=== PATIENT | male | born 1940 | race Caucasian/White ===

== ENCOUNTER → 2016-04-11 | Outpatient (CLI) | payer BC ==
[~2016-04-11] MED LIST: ACET-1047 PO; ACET-1256 PO; ASPEC81 PO; ASPI-232 PO; CALCIUM + D600 M1 PO; CANA1TAB PO; CITA40TA12 PO; CLC100 PO; CLX20 PO; GABA1CAP4 PO; GLIP-197 PO; HYDR12.55 PO; INSDGIPEN SQ; METO1TAB31 PO; MULT-506 PO; NRN/300 PO; NRN600 PO; OMEG10007 PO; SIMV40TA2 PO; TIMO0.2534 OPL; TIMO0.5S2 OPB; TRAV0.00 OPB; ULT50 PO; XLTOPS OPL
== END | disposition home or self-care (01) ==
LOC: C.PATH 15:41
PROVIDERS: ATTEND Dentist Oral and Maxillofacial Surgery
DX: L85.9 Epidermal thickening, unspecified (principal)

== ENCOUNTER 2016-04-17 11:04 | Emergency (ER) | payer BC ==
[~2016-04-17] VITALS: Ht 166.4 cm; Wt 66.5 kg
[~2016-04-17 11:04] MED LIST changes: -ACET-1047 PO; -ASPI-232 PO; -CANA1TAB PO; -CITA40TA12 PO; -CLC100 PO; -GABA1CAP4 PO; -INSDGIPEN SQ; -TIMO0.5S2 OPB; -XLTOPS OPL
[2016-04-17 11:13] VITALS: TEMP 36.8; Ht 166.4 cm; Wt 66.5 kg
--- NOTE | 2016-04-17 11:26 | EMERGENCY ROOM VISIT NOTE ---
History Report prepared by Jignesh: Jett Nielsen Under the Supervision of: Dr. Adriel Laurent M.D. First contact with patient: 11:09 Stated Complaint: MUSCLE SPASM History of Present Illness The patient is a 75 year old male who presents to the Emergency Room via ambulance with complaints of intermittent muscle spasms of the right hand since this morning. The patient had two episodes of spasm in his fingers that caused his right hand to clench. He also felt some numbness to the hand concurrently with the spasm. He is currently asymptomatic. The patient was sitting in a chair reading a newspaper when the symptoms first occurred. He has never experienced spasms like this before. The patient has a history of heart disease , kidney disease, and diabetes. The patient takes Hydrochlorothiazide. 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 The patient is also taking Ultram for tooth pain. He recently had the tooth pulled, and his pain has improved. Source of History: patient Onset: this morning Position: hand (right) Quality: other (muscle spasm) Timing: intermittent Associated Symptoms: + numbness Review of Systems See HPI for pertinent positives & negatives. A total of 10 systems reviewed and were otherwise negative. Past Medical & Surgical Medical Problems: (1) Diabetes (2) Hypertrophic cardiomyopathy (3) Kidney disease Surgical Problems: (1) S/P CABG x 1 Family History Patient reports no known family medical history. Social History Smoking Status: Never Smoker Alcohol Use: none Marital Status: single Current/Historical Medications Scheduled , 1 TABLET PO QAM Aspirin (Aspir-81), 1 TAB PO HS Aspirin Enteric Coated (Ecotrin Or Generic *), 81 MG PO HS Citalopram (Celexa *), 40 MG PO QAM Citalopram Hydrobromide (Celexa), 40 MG PO DAILY Fish Oil ([place]ar-3), 2 CAPSULES PO QAM Fish Oil (Casar-3), 1 CAP PO QPM Gabapentin (Neurontin *), 600 MG PO QAM Gabapentin (Neurontin), 300 MG PO HS Gabapentin (Gabapentin), 1 TAB PO PM Glipizide (Glipizide Er), 1 TAB PO QAM Hydrochlorothiazide (Hydrochlorothiazide), 12.5 MG PO QAM Metoprolol Succinate (Toprol Xl), 25 MG PO QAM Multivitamin (Multivitamin), 1 TABLET PO QAM Simvastatin (Zocor), 40 MG PO HS Timolol Maleate (Ophth) (Timoptic-Xe 0.5% Oph), 1 DROPS OPL BID Timolol Maleate 0.5% Oph (Timoptic 0.5% Oph), 1 DROP OPL BID Travoprost (Travatan Z), 1 DROPS OPB HS Scheduled PRN Tramadol HCl (Tramadol HCl), 1 TAB PO Q4-6H PRN for Pain Allergies Coded Allergies: Atenolol (Verified Allergy, Unknown, UNKNOWN, 04/17/16) Erythromycin (Verified Allergy, Unknown, 04/17/16) PT DENIES ALLERGY TO THIS Fentanyl (Verified Allergy, Unknown, HICCUPS, 04/17/16) Ibuprofen (Verified Allergy, Unknown, STOMACH EROSION, 04/17/16) Naproxen (Unverified Allergy, Unknown, STOMACH EROSION, 04/17/16) Sulfa Drugs (Unverified Allergy, Unknown, SHORTNESS OF BREATH, 04/17/16) Midazolam (Verified Adverse Reaction, Mild, HICCUPS, 04/17/16) Physical Exam Vital Signs Date Time Temp Pulse Resp B/P Pulse Ox O2 Delivery O2 Flow Rate FiO2 04/17/16 13:49 68 18 113/65 98 Room Air 04/17/16 12:52 67 12 115/72 96 Room Air 04/17/16 11:13 36.8 69 24 123/71 96 Room Air 04/17/16 11:12 63 Physical Exam GENERAL: Patient is a healthy-appearing well-nourished HEAD: Normocephalic atraumatic EYES: Ocular movements intact pupils equal and react to light OROPHARYNX mucous membranes are moist no exudates present no erythema or edema present NECK: Supple no nuchal rigidity CHEST: Good equal expansion LUNGS: Clear and equal to auscultation CARDIAC: Normal S1 and S2 ABDOMEN: Soft nontender no guarding BACK: No CVA tenderness EXTREMITIES: No pain upon palpation normal muscle strength in all groups no clubbing cyanosis or edema NEURO: Patient is following commands is answering questions appropriately. Alert and oriented x3 Cranial Nerves 2-12 grossly intact Medical Decision & Procedures Laboratory Results 04/17/16 11:20 Red Blood Count 4.58, Mean Corpuscular Volume 86.2, Mean Corpuscular Hemoglobin 31.2, Mean Corpuscular Hemoglobin Concent 36.2, Mean Platelet Volume 10.8, Neutrophils (%) (Auto) 63.4, Lymphocytes (%) (Auto) 21.7, Monocytes (%) (Auto) 11.3, Eosinophils (%) (Auto) 3.1, Basophils (%) (Auto) 0.2, Neutrophils # (Auto ) 3.85, Lymphocytes # (Auto) 1.32, Monocytes # (Auto) 0.69, Eosinophils # (Auto ) 0.19, Basophils # (Auto) 0.01 04/17/16 11:20 Test 04/17/16 11:20 04/17/16 11:34 White Blood Count 6.08 K/uL (4.8-10.8) Red Blood Count 4.58 M/uL (4.7-6.1) Hemoglobin 14.3 g/dL (14.0-18.0) Hematocrit 39.5 % (42-52) Mean Corpuscular Volume 86.2 fL (80-100) Mean Corpuscular Hemoglobin 31.2 pg (25-34) Mean Corpuscular Hemoglobin Concent 36.2 g/dl (32-36) Platelet Count 111 K/uL (130-400) Mean Platelet Volume 10.8 fL (7.4-10.4) Neutrophils (%) (Auto) 63.4 % Lymphocytes (%) (Auto) 21.7 % Monocytes (%) (Auto) 11.3 % Eosinophils (%) (Auto) 3.1 % Basophils (%) (Auto) 0.2 % Neutrophils # (Auto) 3.85 K/uL (1.4-6.5) Lymphocytes # (Auto) 1.32 K/uL (1.2-3.4) Monocytes # (Auto) 0.69 K/uL (0.11-0.59) Eosinophils # (Auto) 0.19 K/uL (0-0.5) Basophils # (Auto) 0.01 K/uL (0-0.2) RDW Standard Deviation 40.2 fL (36.4-46.3) RDW Coefficient of Variation 12.7 % (11.5-14.5) Immature Granulocyte % (Auto) 0.3 % Immature Granulocyte # (Auto) 0.02 K/uL (0.00-0.02) Anion Gap 7.0 mmol/L (3-11) Est Creatinine Clear Calc Drug Dose 36.6 ml/min Estimated GFR () 51.3 Estimated GFR (Non- 44.3 BUN/Creatinine Ratio 18.3 (10-20) Calcium Level 9.4 mg/dl (8.5-10.1) Phosphorus Level 3.6 mg/dl (2.5-4.9) Magnesium Level 2.3 mg/dl (1.8-2.4) Total Bilirubin 1.1 mg/dl (0.2-1) Direct Bilirubin 0.3 mg/dl (0-0.2) Aspartate Amino Transf (AST/SGOT) 20 U/L (15-37) Alanine Aminotransferase (ALT/SGPT) 33 U/L (12-78) Alkaline Phosphatase 106 U/L (45-117) Total Protein 7.3 gm/dl (6.4-8.2) Albumin 3.6 gm/dl (3.4-5.0) Lipase 137 U/L (73-393) Bedside Glucose 154 mg/dl (70-99) Labs reviewed by ED physician. Medications Administered Medications (Trade) Dose Ordered Sig/Gay Route Start Time Stop Time Status Last Admin Dose Admin Sodium Chloride (Nss 1000ml) 1,000 ml @ 999 mls/hr Q1H1M STAT IV 04/17/16 11:34 04/17/16 12:34 DC 04/17/16 11:34 999 MLS/HR ED Course 1110: Past medical records reviewed. The patient was evaluated in room C2. A complete history and physical examination was performed. 1134: NSS 1000 ml @ 999 mls/hr. 1245: Reassessed the patient. Discussed the treatment plan with him. He verbalized understanding and agreement of the treatment plan. The patient is ready for discharge. Medical Decision Etiologies such as metabolic, infection, hypo/hyperglycemia, electrolyte abnormalities, cardiac sources, intracerebral event, toxicologic, neurologic, as well as others were entertained. This is a 75-year-old male who presents emergency department complaining of muscle spasms in his right arm. I will note that the patient was reason I placed on Augmentin as well as Ultram for a mouth infection. Because the nature the patient's complaint an IV was established, the patient's electrolytes were checked. An IV was established, patient given normal saline bolus. The patient is slightly dehydrated on his laboratory work. I believe this in connection with possibly the Ultram may have caused him to have muscle spasms. I advised the patient stopped taking the Ultram. Patient was in agreement with the treatment plan. Impression Primary Impression: Dehydration Scribe Attestation The scribe's documentation has been prepared under my direction and personally reviewed by me in its entirety. I confirm that the note above accurately reflects all work, treatment, procedures, and medical decision making performed by me. Departure Information Dispostion Home / Self-Care Referrals Jefferson Suarez D.O. (PCP) Forms HOME CARE DOCUMENTATION FORM, IMPORTANT VISIT INFORMATION, School Instructions, Work Instructions Patient Instructions Dehydration, My [facility] Additional Instructions STOP taking Ultram You have been examined and treated today on an emergency basis only. This is not a substitute for, or an effort to provide, complete comprehensive medical care. It is impossible to recognize and treat all injuries or illnesses in a single emergency department visit. It is therefore important that you follow up closely with Dr Suarez. Call as soon as possible for an appointment. Thank you for your time and consideration. I look forward to speaking with you again soon. Please don't hesitate to call us if you have any questions.
[2016-04-17] MEDS ORDERED: SODIUM CHLORIDE 0.9% 1000ML 1,000 ML IV STA (11:34)
[2016-04-17 11:36] LABS: BASO % 0.2 %; BASO ABS # 0.01 K/uL (0-0.2); COMPLETE YES; EOS % 3.1 %; HEMATOCRIT 39.5 % (42-52); IG% 0.3 %; LYMPH % 21.7 %; LYMPH ABS # 1.32 K/uL (1.2-3.4); MEAN CELL VOLUME 86.2 fL (80-100); MEAN CORPUSCULAR HEMOGLOBIN 31.2 pg (25-34); MEAN CORPUSCULAR HGB CONC 36.2 g/dl (32-36); MEAN PLATELET VOLUME 10.8 fL (7.4-10.4); MONO % 11.3 %; NEUT % 63.4 %; PLATELET COUNT 111 K/uL (130-400); RED BLOOD COUNT 4.58 M/uL (4.7-6.1); WHITE BLOOD COUNT 6.08 K/uL (4.8-10.8)
[2016-04-17 12:01] LABS: BUN/CREATININE RATIO 18.3 (10-20); CALCIUM 9.4 mg/dl (8.5-10.1); CREATININE 1.5 mg/dl (0.60-1.40); MAGNESIUM 2.3 mg/dl (1.8-2.4); POTASSIUM 4.2 mmol/L (3.5-5.1)
[2016-04-17 12:05] LABS: PHOSPHORUS 3.6 mg/dl (2.5-4.9)
[2016-04-17] MEDS ORDERED: NRN600 PO (12:30)
[2016-04-17] MEDS ORDERED: CITA40TA12 PO (12:30)
[2016-04-17] MEDS ORDERED: TIMO0.5S2 OPB (12:30)
[2016-04-17] MEDS ORDERED: ASPI-232 PO (12:30)
[2016-04-17 13:49] VITALS: BP 113/65; PULSE 68; O2SAT 98
[2016-12-05] MEDS ORDERED: ACET-1047 PO (10:24)
[2016-12-05] MEDS ORDERED: INSDGIPEN SQ (10:24)
[2016-12-05] MEDS ORDERED: CLC100 PO (10:24)
== END 2016-04-17 13:55 | disposition home or self-care (01) ==
LOC: EDBD 11:04 → C.EDC 11:05
DX: E86.0 Dehydration (principal); E11.9 Type 2 diabetes mellitus without complications; N28.9 Disorder of kidney and ureter, unspecified; Z95.1 Presence of aortocoronary bypass graft

== ENCOUNTER → 2016-06-18 | Outpatient (CLI) | payer BC ==
[~2016-06-18] MED LIST changes: +ACET-1047 PO; -ACET-1256 PO; +ASPI-232 PO; +CANA1TAB PO; +CITA40TA12 PO; +CLC100 PO; +GABA1CAP4 PO; +INSDGIPEN SQ; +TIMO0.5S2 OPB; +XLTOPS OPL
--- NOTE | 2016-06-18 14:47 | DIAGNOSTIC IMAGING REPORT ---
EXAMINATION: RENAL ULTRASOUND CLINICAL HISTORY: Chronic renal disease COMPARISON STUDY: 06/28/2015 FINDINGS: The right kidney measures 5.6 cm. The left kidney measures 9.1 cm. There is no evidence of hydronephrosis. There is a 17 mm lower pole right renal cyst. There is a 4 mm nonshadowing echogenic focus within the lower pole the left kidney. While a nonshadowing calculus cannot be excluded, this likely represents a vascular reflector. No bladder abnormalities are visualized. Bilateral ureteral jets were visualized. The prostate is enlarged. IMPRESSION : 1. No evidence of hydronephrosis 2. 17 mm right renal cyst 3. Prostatic enlargement Electronically signed by: Pardeep Jhaveri M.D. 06/18/2016 2:46 PM Dictated Date/Time: 06/18/2016 2:45 PM
== END | disposition home or self-care (01) ==
LOC: C.ULTR 14:05
PROVIDERS: ATTEND Internal Medicine Nephrology
DX: N18.9 Chronic kidney disease, unspecified (principal); N28.1 Cyst of kidney, acquired; N40.0 Benign prostatic hyperplasia without lower urinary tract symptoms

== ENCOUNTER → 2016-07-24 | Outpatient (CLI) | payer BC ==
[~2016-07-24] MED LIST changes: +METO-478 PO; -METO1TAB31 PO
--- NOTE | 2016-07-24 14:04 | DIAGNOSTIC IMAGING REPORT ---
CERVICAL SPINE 9 VIEWS HISTORY: Trauma NECK PAIN COMPARISON: None. FINDINGS: The cervical spine is visualized from C1 through the superior endplate of T1. There is no fracture. No evidence for subluxation on a positional basis. Flexion-extension views demonstrate alignment to be anatomic. Moderate degenerative disc change from C5 through C7. Mild anterior osteophytic changes throughout. Moderate osteophytic narrowing of the bulk of the neuroforamina bilaterally. IMPRESSION: Degenerative change of the mid to lower cervical region. No evidence for subluxation on a positional basis. Moderate osteophytic narrowing of the bulk of the neuroforamina bilaterally. Electronically signed by: Luiz Funes M.D. 07/24/2016 2:03 PM Dictated Date/Time: 07/24/2016 2:02 PM
== END | disposition home or self-care (01) ==
LOC: C.RDSM 12:17
PROVIDERS: ATTEND Neurological Surgery
DX: M54.2 Cervicalgia (principal)

== ENCOUNTER 2016-09-11 03:09 | Emergency (ER) | payer BC ==
[~2016-09-11] VITALS: Ht 166.4 cm; Wt 72.6 kg
[~2016-09-11 03:09] MED LIST changes: -ACET-1047 PO; -CANA1TAB PO; -CLC100 PO; -GABA1CAP4 PO; -INSDGIPEN SQ; -XLTOPS OPL
[2016-09-11 03:22] VITALS: TEMP 36.6; Ht 166.4 cm; Wt 72.6 kg
[2016-09-11 03:38] LABS: BASO % 0.1 %; BASO ABS # 0.01 K/uL (0-0.2); COMPLETE YES; EOS % 2.8 %; HEMATOCRIT 40.7 % (42-52); IG% 0.1 %; LYMPH % 29.5 %; MEAN CELL VOLUME 85.5 fL (80-100); MEAN CORPUSCULAR HEMOGLOBIN 31.9 pg (25-34); MEAN CORPUSCULAR HGB CONC 37.3 g/dl (32-36); MEAN PLATELET VOLUME 10.7 fL (7.4-10.4); NEUT % 58.5 %; PLATELET COUNT 148 K/uL (130-400); RED BLOOD COUNT 4.76 M/uL (4.7-6.1); WHITE BLOOD COUNT 7.13 K/uL (4.8-10.8)
[2016-09-11] MEDS ORDERED: MoRPHine SULFATE 4 MG/ML 1 ML CARP\\VIAL IV STA (03:46)
[2016-09-11 03:59] LABS: BUN/CREATININE RATIO 16.2 (10-20); CALCIUM 9.1 mg/dl (8.5-10.1); CREATININE 1.5 mg/dl (0.60-1.40); POTASSIUM 3.8 mmol/L (3.5-5.1)
[2016-09-11 04:01] LABS: ALB/GLOB RATIO 1.1 (0.9-2)
[2016-09-11] MEDS ORDERED: GABA1CAP4 PO (04:33)
[2016-09-11] MEDS ORDERED: XLTOPS OPL (04:33)
--- NOTE | 2016-09-11 06:19 | EMERGENCY ROOM VISIT NOTE ---
History First contact with patient: 03:16 Chief Complaint: CARDIAC ASSESSMENT Stated Complaint: CARDIAC ASSESSMENT Nursing Triage Summary: Pt arrives ALS for evaluation of sudden onset of abd/epigastic pain,sob; followed hour later with mid- sternal chest pain and belching. Pt reports he had a half sandwich from [employer] for dinner. Ate 12 cookies before bed. PMH: DM, cardiomyapathy, CKD, PACER/DEFIB, CHF History of Present Illness The patient is a 75 year old male who presents to the Emergency Room via ALS with complaints of abdominal and chest pain which began just prior to arrival. The patient reports that he was about to go to bed approximately 2 hours ago when he developed severe upper abdominal pain. The pain began to radiate into his chest and he notes that he was "breathing hard." He reports associated belching. He states the pain in his chest has improved but the pain remains in the upper abdomen. He denies any vomiting, fevers, changes in bowel movements or urinary symptoms. He has a significant history of coronary artery disease and pacemaker. He has had multiple surgeries performed at [facility]. He additionally reports a history of diabetes and chronic kidney disease. Review of Systems A complete 10 point review of systems was reviewed with the patient with pertinent positives and negatives as per history of present illness. All else were negative. Past Medical/Surgical History Medical Problems: (1) Diabetes (2) Hypertrophic cardiomyopathy (3) Kidney disease Surgical Problems: (1) S/P CABG x 1 Family History Patient reports no known family medical history. Social History Smoking Status: Never Smoker Alcohol Use: none Marital Status: single Current/Historical Medications Scheduled , 1 TABLET PO QAM Aspirin (Aspir-81), 1 TAB PO HS Citalopram Hydrobromide (Celexa), 40 MG PO DAILY Fish Oil ([place]-3), 2 CAPSULES PO QAM Gabapentin (Gabapentin), 300 MG PO TID Glipizide (Glipizide Er), 1 TAB PO QAM Hydrochlorothiazide (Hydrochlorothiazide), 12.5 MG PO QAM Latanoprost (Latanoprost), 1 DROP OPL HS Metoprolol Succinate (Toprol Xl), 25 MG PO QAM Multivitamin (Multivitamin), 1 TABLET PO QAM Simvastatin (Zocor), 40 MG PO HS Timolol Maleate (Ophth) (Timoptic-Xe 0.5% Oph), 1 DROPS OPB DAILY Scheduled PRN Tramadol HCl (Tramadol HCl), 1 TAB PO Q4-6H PRN for Pain Allergies Coded Allergies: Atenolol (Verified Allergy, Unknown, UNKNOWN, 09/11/16) Erythromycin (Verified Allergy, Unknown, 09/11/16) PT DENIES ALLERGY TO THIS Fentanyl (Verified Allergy, Unknown, HICCUPS, 09/11/16) Ibuprofen (Verified Allergy, Unknown, STOMACH EROSION, 09/11/16) Naproxen (Unverified Allergy, Unknown, STOMACH EROSION, 09/11/16) Sulfa Drugs (Unverified Allergy, Unknown, SHORTNESS OF BREATH, 09/11/16) Midazolam (Verified Adverse Reaction, Mild, HICCUPS, 09/11/16) Physical Exam Vital Signs Date Time Temp Pulse Resp B/P (MAP) Pulse Ox O2 Delivery O2 Flow Rate FiO2 09/11/16 07:09 67 16 110/61 98 Room Air 09/11/16 05:34 92 18 190/104 96 Room Air 09/11/16 05:17 60 16 137/72 99 Room Air 09/11/16 04:28 63 18 137/76 99 Room Air 09/11/16 03:22 36.6 69 20 160/89 99 Room Air 09/11/16 03:19 Room Air 09/11/16 03:18 68 Physical Exam VITALS: Vitals are noted on the nurse's note and reviewed by myself. Vital signs stable. GENERAL: This is a 75-year-old female, in no acute distress, nondiaphoretic, well-developed well-nourished. SKIN: Capillary reflex less than 2 seconds. HEENT: Normocephalic. PERRLA. Nares patent. Mucous membranes moist. HEART: Regular rate and rhythm without murmurs gallops or rubs. LUNGS: Clear to auscultation bilaterally without wheezes, rales or rhonchi. ABDOMEN: Positive bowel sounds x 4. There is significant tenderness to palpation of the right upper quadrant and epigastric region. There is no other tenderness to palpation. No guarding or rebound tenderness. NEURO: Patient was alert and oriented to person place and time. Medical Decision & Procedures ER Provider Diagnostic Interpretation: US RUQ: The liver is normal in size and echogenicity. The pancreas was not well visualized. The common bile duct is within normal limits measured 2.2 mm. Stones and sludge within the gallbladder. Gallbladder wall measures within normal limits at 2.7 mm. Trace pericholecystic fluid. If there is clinical concern for acute cholecystitis, consider nuclear medicine HIDA scan. Small cyst within the right kidney. Otherwise the right kidney is unremarkable. Radiologist: Jose Correa MD Laboratory Results 09/11/16 03:25 Red Blood Count 4.76, Mean Corpuscular Volume 85.5, Mean Corpuscular Hemoglobin 31.9, Mean Corpuscular Hemoglobin Concent 37.3, Mean Platelet Volume 10.7, Neutrophils (%) (Auto) 58.5, Lymphocytes (%) (Auto) 29.5, Monocytes (%) (Auto) 9.0, Eosinophils (%) (Auto) 2.8, Basophils (%) (Auto) 0.1, Neutrophils # (Auto) 4.17, Lymphocytes # (Auto) 2.10, Monocytes # (Auto) 0.64, Eosinophils # (Auto) 0.20, Basophils # (Auto) 0.01 09/11/16 03:25 Test 09/11/16 03:25 09/11/16 03:38 09/11/16 06:20 White Blood Count 7.13 K/uL (4.8-10.8) Red Blood Count 4.76 M/uL (4.7-6.1) Hemoglobin 15.2 g/dL (14.0-18.0) Hematocrit 40.7 % (42-52) Mean Corpuscular Volume 85.5 fL (80-100) Mean Corpuscular Hemoglobin 31.9 pg (25-34) Mean Corpuscular Hemoglobin Concent 37.3 g/dl (32-36) Platelet Count 148 K/uL (130-400) Mean Platelet Volume 10.7 fL (7.4-10.4) Neutrophils (%) (Auto) 58.5 % Lymphocytes (%) (Auto) 29.5 % Monocytes (%) (Auto) 9.0 % Eosinophils (%) (Auto) 2.8 % Basophils (%) (Auto) 0.1 % Neutrophils # (Auto) 4.17 K/uL (1.4-6.5) Lymphocytes # (Auto) 2.10 K/uL (1.2-3.4) Monocytes # (Auto) 0.64 K/uL (0.11-0.59) Eosinophils # (Auto) 0.20 K/uL (0-0.5) Basophils # (Auto) 0.01 K/uL (0-0.2) RDW Standard Deviation 40.1 fL (36.4-46.3) RDW Coefficient of Variation 12.8 % (11.5-14.5) Immature Granulocyte % (Auto) 0.1 % Immature Granulocyte # (Auto) 0.01 K/uL (0.00-0.02) Anion Gap 5.0 mmol/L (3-11) Est Creatinine Clear Calc Drug Dose 36.6 ml/min Estimated GFR () 51.3 Estimated GFR (Non- 44.3 BUN/Creatinine Ratio 16.2 (10-20) Calcium Level 9.1 mg/dl (8.5-10.1) Total Bilirubin 0.8 mg/dl (0.2-1) Aspartate Amino Transf (AST/SGOT) 16 U/L (15-37) Alanine Aminotransferase (ALT/SGPT) 30 U/L (12-78) Alkaline Phosphatase 127 U/L (45-117) Total Protein 7.1 gm/dl (6.4-8.2) Albumin 3.7 gm/dl (3.4-5.0) Globulin 3.4 gm/dl (2.5-4.0) Albumin/Globulin Ratio 1.1 (0.9-2) Lipase 252 U/L (73-393) Bedside Troponin I 0.040 ng/ml (0-0.045) Urine Color DK YELLOW Urine Appearance CLOUDY (CLEAR) Urine pH 7.5 (4.5-7.5) Urine Specific [place] 1.026 (1.000-1.030) Urine Protein NEG (NEG) Urine Glucose (UA) TRACE (NEG) Urine Ketones TRACE (NEG) Urine Occult Blood NEG (NEG) Urine Nitrite NEG (NEG) Urine Bilirubin NEG (NEG) Urine Urobilinogen POS (NEG) Urine Leukocyte Esterase NEG (NEG) Urine WBC (Auto) 1-5 /hpf (0-5) Urine RBC (Auto) 0-4 /hpf (0-4) Urine Hyaline Casts (Auto) 0 /lpf (0-5) Urine Epithelial Cells (Auto) 5-10 /lpf (0-5) Urine Bacteria (Auto) NEG (NEG) Medications Administered Medications (Trade) Dose Ordered Sig/Gay Route Start Time Stop Time Status Last Admin Dose Admin Morphine Sulfate (MoRPHine SULFATE INJ) 4 mg NOW STAT IV 09/11/16 03:46 09/11/16 03:47 DC 09/11/16 04:40 4 MG ECG Rate (beats per minute): 67 Rhythm: other (AV paced rhythm) Findings: no acute ischemic change Change: no significant change ED Course The patient was evaluated as above. Labs were drawn and IV access was obtained. Patient was medicated with 4 mg morphine IV. Right upper quadrant ultrasound shows findings suggestive of acute cholecystitis. The findings were discussed with the patient. He states that if he needs surgery, he would like to be transferred to [place]. I spoke with Dr. Mayer regarding the patient. He feels that given the presentation, this is likely acute cholecystitis and does not feel that a HIDA scan will be beneficial. I spoke with Dr. Michael at [facility]. He will accept the patient as a direct admission. Medical Decision Differential diagnosis includes acute coronary syndrome, cholecystitis, pancreatitis, gastroenteritis, bowel obstruction, kidney stone, pulmonary embolism, aortic dissection, among others. The patient is a 75-year-old male who presents today complaining of abdominal/ chest pain. Exam reveals significant tenderness of the right upper quadrant. Labs revealed no leukocytosis. Troponin was not elevated. EKG shows a paced rhythm and is similar to a previous EKG. LFTs are not significantly elevated. Bilirubin was within normal limits. A chest x-ray was reviewed by myself and is unremarkable. Right upper quadrant ultrasound did show sludge, stones, and pericholecystic fluid. Our general surgeon, Dr. Mayer felt that this does represent acute cholecystitis. The patient would like to be transferred to [facility] and requested to go by private vehicle. I do think this is reasonable, as the patient is stable and pain-free at this time. [facility] surgery will accept the patient as a direct admission. The patient was independently evaluated by Dr. Garcia, ED attending physician, who agreed with my assessment and treatment plan. Medication reconciliation: I attest that I have personally reviewed the patient 's current medication list. Blood pressure screening: Patient was found to have normal blood pressure on screening and does not require follow-up. Impression Primary Impression: Acute cholecystitis Departure Information Referrals Jefferson Suarez D.O. (PCP) Patient Instructions [facility]
--- NOTE | 2016-09-11 06:40 | DIAGNOSTIC IMAGING REPORT ---
CHEST ONE VIEW PORTABLE CLINICAL HISTORY: epigastric/RUQ pain pain. Nausea. COMPARISON STUDY: 02/14/2015 FINDINGS: Lungs are clear. Prior median sternotomy. Bipolar cardiac pacemaker. Diaphragms smooth. IMPRESSION: No acute process. Electronically signed by: Luiz Funes M.D. 09/11/2016 6:39 AM Dictated Date/Time: 09/11/2016 6:38 AM
[2016-09-11 07:09] VITALS: BP 110/61; PULSE 67; O2SAT 98
--- NOTE | 2016-09-11 07:22 | DIAGNOSTIC IMAGING REPORT ---
ULTRASOUND RIGHT UPPER QUADRANT ABDOMEN CLINICAL HISTORY: Epigastric abdominal pain. COMPARISON STUDY: Abdominal CT dated 06/07/2009. TECHNIQUE: Real-time, grayscale, and color flow sonography of the right upper quadrant of the abdomen was performed. Images are reviewed in the transverse and longitudinal planes. FINDINGS: Liver: The liver is normal in size and echotexture. There is no intrahepatic biliary ductal dilatation. The main portal vein is patent. Gallbladder: The gallbladder is mildly distended. Biliary sludge is noted and small gallstones are suspected in the region of the gallbladder neck. The gallbladder wall is borderline thickened measuring up to 3 mm. No pericholecystic fluid is seen. A sonographic Rosario's sign is equivocal secondary to analgesia. The common bile duct measures up to 0.3 cm in diameter. Pancreas: Not well visualized due to overlying bowel gas. Right kidney: Survey images of the right kidney demonstrate cortical atrophy. There is no hydronephrosis. A 1.7 cm cyst is noted in the lower pole. Ascites: None. IMPRESSION: 1. Cholelithiasis and biliary sludge with findings concerning for acute cholecystitis. Clinical correlation will be required. Consider nuclear hepatobiliary scan for confirmation. 2. There is no intra or extrahepatic biliary ductal dilatation. 3. The pancreas was not well visualized. Electronically signed by: Praful De La Rosa M.D. 09/11/2016 7:20 AM Dictated Date/Time: 09/11/2016 7:17 AM
[2016-09-11 07:33] LABS: URINE APPEARANCE CLOUDY (CLEAR); URINE BILIRUBIN NEG (NEG); URINE COLOR DK YELLOW; URINE NITRITE NEG (NEG); URINE PH 7.5 (4.5-7.5); URINE SPECIFIC GRAVITY 1.026 (1.000-1.030); UROBILINOGEN POS (NEG); ZZUR CULT IF INDIC CLEAN CATCH NO
[2016-09-11 07:40] LABS: MANUAL MICROSCOPIC REQUIRED? NO; REVIEW REQ? NO
[2016-12-05] MEDS ORDERED: INSDGIPEN SQ (10:24)
[2016-12-05] MEDS ORDERED: CLC100 PO (10:24)
[2016-12-05] MEDS ORDERED: ACET-1047 PO (10:24)
== END 2016-09-11 07:46 | disposition short-term general hospital (02) ==
LOC: EDBD 03:09 → C.EDB 03:10
DX: K81.0 Acute cholecystitis (principal); I25.10 Atherosclerotic heart disease of native coronary artery without angina pectoris; E11.22 Type 2 diabetes mellitus with diabetic chronic kidney disease; N18.9 Chronic kidney disease, unspecified; I42.2 Other hypertrophic cardiomyopathy; Z95.0 Presence of cardiac pacemaker; Z95.1 Presence of aortocoronary bypass graft; Z79.82 Long term (current) use of aspirin

== ENCOUNTER → 2016-11-21 | Outpatient (CLI) | payer BC ==
[~2016-11-21] MED LIST changes: +ACET-1047 PO; -ASPEC81 PO; +CANA1TAB PO; +CLC100 PO; -CLX20 PO; +GABA1CAP4 PO; +INSDGIPEN SQ; -METO-478 PO; +METO1TAB31 PO; -NRN/300 PO; -NRN600 PO; -TIMO0.2534 OPL; -TRAV0.00 OPB; +XLTOPS OPL
--- NOTE | 2016-11-21 10:30 | DIAGNOSTIC IMAGING REPORT ---
LEFT FOOT MIN 3 VIEWS CLINICAL HISTORY: Left foot pain COMPARISON: None. DISCUSSION: No acute fractures are visualized. There are degenerative changes at the level the first tarsal metatarsal joint and first metatarsal phalangeal joint. Mild irregularity of the first metatarsal head, is likely either degenerative or related to old trauma. There is a plantar calcaneal spur. IMPRESSION: 1. No acute fractures 2. Degenerative changes at the level of the first tarsal metatarsal joint and first metatarsal phalangeal joint Electronically signed by: Pardeep Jhaveri M.D. 11/21/2016 10:29 AM Dictated Date/Time: 11/21/2016 10:27 AM
== END | disposition home or self-care (01) ==
LOC: C.RDSM 11:30
PROVIDERS: ATTEND Podiatrist
DX: M79.672 Pain in left foot (principal)

== ENCOUNTER 2016-12-01 04:21 | Inpatient (IN) | payer BC ==
[~2016-12-01] VITALS: Ht 167.6 cm; Wt 71.1 kg
[~2016-12-01 04:21] MED LIST changes: -ACET-1047 PO; -CANA1TAB PO; -CLC100 PO; -INSDGIPEN SQ
[2016-12-01] MEDS ORDERED: ONDANSETRON INJ 2 MG/ML 2 ML VIAL IV STA (04:41)
[2016-12-01] MEDS ORDERED: MoRPHine SULFATE 4 MG/ML 1 ML CARP\\VIAL IV STA ×2 (04:41→05:42)
[2016-12-01 05:04] LABS: BASO % 0.3 %; BASO ABS # 0.03 K/uL (0-0.2); COMPLETE YES; EOS % 3.2 %; HEMATOCRIT 42.6 % (42-52); IG% 0.2 %; LYMPH % 37.6 %; LYMPH ABS # 3.27 K/uL (1.2-3.4); MEAN CELL VOLUME 86.4 fL (80-100); MEAN CORPUSCULAR HGB CONC 35.9 g/dl (32-36); MONO % 11.3 %; NEUT % 47.4 %; PLATELET COUNT 130 K/uL (130-400); RED BLOOD COUNT 4.93 M/uL (4.7-6.1); WHITE BLOOD COUNT 8.69 K/uL (4.8-10.8)
[2016-12-01] MEDS ORDERED: CANA1TAB PO (05:15)
[2016-12-01] MEDS ORDERED: INSDGIPEN SQ (05:15)
[2016-12-01 05:24] LABS: BUN/CREATININE RATIO 20.1 (10-20); CALCIUM 9.2 mg/dl (8.5-10.1); CREATININE 1.8 mg/dl (0.60-1.40); POTASSIUM 3.7 mmol/L (3.5-5.1)
[2016-12-01 05:27] LABS: ALB/GLOB RATIO 0.9 (0.9-2)
--- NOTE | 2016-12-01 06:32 | DIAGNOSTIC IMAGING REPORT ---
GALLBLADDER-ABD LIMITED CLINICAL HISTORY: abd pain, hx stones TECHNIQUE: Ultrasound COMPARISON STUDY: 09/11/2016 FINDINGS: Moderate amount of gallbladder debris. No significant pericholecystic fluid. Gallbladder wall top limits of normal 3 mm. No evidence for distention of the common bile duct. Liver is uniform throughout. Pancreas is not seen due to overlying bowel gas. Right kidney is negative for hydronephrosis. 2.5 cm lower pole cyst. IMPRESSION: Moderate gallbladder debris. Normal caliber bile ducts. Small right renal cyst. No change from the prior exam. The above report was generated using voice recognition software. It may contain grammatical, syntax or spelling errors. Electronically signed by: Luiz Funes M.D. 12/01/2016 6:31 AM Dictated Date/Time: 12/01/2016 6:29 AM
[2016-12-01] MEDS ORDERED: HYDROmorphone INJ 0.5 MG/0.5 ML SYR IV STA (06:34)
[2016-12-01] MEDS ORDERED: ASPIRIN/ALUM/MAGNES/CAL CARB 325 MG TAB PO STA (06:52)
--- NOTE | 2016-12-01 06:55 | EMERGENCY ROOM VISIT NOTE ---
History Report prepared by Jignesh: Markie Koenig Under the Supervision of: Dr. Yaritza Raza D.O. First contact with patient: 05:19 Chief Complaint: ABDOMINAL PAIN Stated Complaint: ABD PAIN Nursing Triage Summary: Patient reports abdominal pain. Patient reports he is to have his gal bladder removed this at [facility]. History of Present Illness The patient is a 75 year old male who presents to the Emergency Room with complaints of constant central abdominal pain beginning a few hours ago. He is scheduled for a cholecystectomy in [place] in four days. He states that his pain began as he was trying to fall asleep. The patient states that his pain worsened since it began. He also complains of nausea, chills and subjective fevers. He denies any modifying factors. The patient notes that he has a history of similar symptoms. States pain and location tonight is the exact same as it was when he was found to have gallbladder problems a couple months ago. Denies chest pain, trouble breathing, no fevers. He denies any diarrhea or urinary symptoms. He notes that he recently began taking Invokana. States his daily blood sugar readings have been better controlled, but his las Hgb A1C was elevated. The patient notes that he ate a late dinner at a new restaurant last night. States felt fine while eating. Source of History: patient Onset: A few hours ago Position: abdomen (epigastric) Timing: constant Modifying Factors (Worsening): other (none) Modifying Factors (Relieving): other (none) Associated Symptoms: + fevers (subjective), + chills, + nausea, No diarrhea , No urinary symptoms Review of Systems See HPI for pertinent positives & negatives. A total of 10 systems reviewed and were otherwise negative. Past Medical & Surgical Medical Problems: (1) Diabetes (2) Hypertrophic cardiomyopathy (3) Kidney disease Surgical Problems: (1) S/P CABG x 1 Family History Patient reports no known family medical history. Social History Smoking Status: Never Smoker Alcohol Use: none Marital Status: single Current/Historical Medications Scheduled , 1 TABLET PO QAM Aspirin (Aspir-81), 1 TAB PO HS Canagliflozin (Invokana), 100 MG PO QAM Citalopram Hydrobromide (Celexa), 40 MG PO DAILY Fish Oil ([place]-3), 2 CAPSULES PO QAM Gabapentin (Gabapentin), 300 MG PO TID Glipizide (Glipizide Er), 1 TAB PO QAM Hydrochlorothiazide (Hydrochlorothiazide), 12.5 MG PO QAM Insulin Glargine (Lantus Solostar), 25 UNITS SQ HS Latanoprost (Latanoprost), 1 DROP OPL HS Metoprolol Succinate (Toprol Xl), 25 MG PO QAM Multivitamin (Multivitamin), 1 TABLET PO QAM Simvastatin (Zocor), 40 MG PO HS Timolol Maleate (Ophth) (Timoptic-Xe 0.5% Oph), 1 DROPS OPB DAILY Scheduled PRN Tramadol HCl (Tramadol HCl), 1 TAB PO Q4-6H PRN for Pain Allergies Coded Allergies: Atenolol (Verified Allergy, Unknown, UNKNOWN, 12/01/16) Erythromycin (Verified Allergy, Unknown, 12/01/16) PT DENIES ALLERGY TO THIS Fentanyl (Verified Allergy, Unknown, HICCUPS, 12/01/16) Ibuprofen (Verified Allergy, Unknown, STOMACH EROSION, 12/01/16) Naproxen (Unverified Allergy, Unknown, STOMACH EROSION, 12/01/16) Sulfa Drugs (Unverified Allergy, Unknown, SHORTNESS OF BREATH, 12/01/16) Midazolam (Verified Adverse Reaction, Mild, HICCUPS, 12/01/16) Physical Exam Vital Signs Date Time Temp Pulse Resp B/P (MAP) Pulse Ox O2 Delivery O2 Flow Rate FiO2 12/01/16 07:50 80 20 117/67 Room Air 12/01/16 06:38 60 18 128/64 96 Room Air 12/01/16 05:43 36.4 61 12/01/16 05:06 61 12/01/16 04:31 83 18 150/91 100 Room Air Physical Exam GENERAL: alert, well appearing, well nourished, no distress, non-toxic EYE EXAM: normal conjunctiva, PERRL and EOM's grossly intact OROPHARYNX: no exudate, no erythema, lips, buccal mucosa, and tongue normal and mucous membranes are moist NECK: supple, no nuchal rigidity, no adenopathy, non-tender LUNGS: Clear to auscultation. Normal chest wall mechanics HEART: no murmurs, S1 normal and S2 normal ABDOMEN: abdomen soft, normo-active bowel sounds, no masses, no rebound or guarding. Tender across the mid-abdomen and periumbilical region. BACK: Back is symmetrical on inspection and there is no deformity, no midline tenderness, no CVA tenderness. SKIN: no rashes and no bruising UPPER EXTREMITIES: upper extremities are grossly normal. LOWER EXTREMITIES: No pitting edema. NEURO EXAM: Normal sensorium, cranial nerves II-XII grossly intact, normal speech, no gross weakness of arms, no gross weakness of legs. Medical Decision & Procedures ER Provider Diagnostic Interpretation: US: Per my review, radiologist interpretation. GALLBLADDER-ABD LIMITED FINDINGS: Moderate amount of gallbladder debris. No significant pericholecystic fluid. Gallbladder wall top limits of normal 3 mm. No evidence for distention of the common bile duct. Liver is uniform throughout. Pancreas is not seen due to overlying bowel gas. Right kidney is negative for hydronephrosis. 2.5 cm lower pole cyst. IMPRESSION: Moderate gallbladder debris. Normal caliber bile ducts. Small right renal cyst. No change from the prior exam. The above report was generated using voice recognition software. It may contain grammatical, syntax or spelling errors. Electronically signed by: Luiz Funes M.D. Laboratory Results Test 12/01/16 04:45 12/01/16 05:50 Lipase 393 U/L (73-393) Lactic Acid Level 1.2 mmol/L (0.4-2.0) Laboratory results per my review. Medications Administered Medications (Trade) Dose Ordered Sig/Gay Route Start Time Stop Time Status Last Admin Dose Admin Morphine Sulfate (MoRPHine SULFATE INJ) 4 mg NOW STAT IV 12/01/16 04:41 12/01/16 04:47 DC 12/01/16 04:55 4 MG Ondansetron HCl (Zofran Inj) 4 mg NOW STAT IV 12/01/16 04:41 12/01/16 04:47 DC 12/01/16 04:55 4 MG Morphine Sulfate (MoRPHine SULFATE INJ) 4 mg NOW STAT IV 12/01/16 05:42 12/01/16 05:43 DC 12/01/16 06:04 4 MG Hydromorphone HCl (Dilaudid Inj) 0.5 mg NOW STAT IV 12/01/16 06:34 12/01/16 06:35 DC 12/01/16 06:46 0.5 MG Aspirin/Aluminum/ Magnesium/Ca Carb (Ascriptin Tab) 325 mg NOW STAT PO 12/01/16 06:52 12/01/16 06:54 DC 12/01/16 07:50 325 MG ECG Indication: abdominal pain Rate (beats per minute): 60 Rhythm: other (AV paced) Findings: no acute ischemic change, other (Normal axis. ) ED Course 0521: The patient was evaluated in room B5. A complete history and physical exam was performed. 0542: Ordered Morphine Sulfate 4 mg IV. 0634: Ordered Dilaudid Inj 0.5 mg IV. 0647: Upon reevaluation, the patient is resting. His abdominal pain is still present. I discussed the findings and the treatment plan with the patient. He expresses agreement and understanding. I spoke with the [facility]. The patient will be evaluated for further management. Medical Decision Differential diagnosis: Etiologies such as appendicitis, diverticulitis, PUD, biliary pathology, UTI, pancreatitis, obstruction, mesenteric ischemia, aortic pathology, infections, inflammatory bowel disease, renal colic, as well as others were entertained. Review of EMR: US from September 11, 2016 reviewed. Pt with hx of CAD and stents, sx possibly related to gallbladder etiology. No sx to otw suggest ACS. Troponin elevated, no acute ekg changes, paced rhythm. Possible elevated troponin related to CKD. However needs additional monitoring/ evaluation. Pain improved with meds. No surgical abdomen. Doubt perf, mesenteric ischemia, asc cholangitis, sepsis, aaa/dissection. VS stable. Offered pt transfer to [place] given docs down there and surgery scheduled, he requested to stay here until additional determinations could be made regarding his cardiac status and ability to have his procedure on . No significant leukocytosis or abnormal LFT"s at this time, more likely biliary colic and not acute cholecystitis. Medication Reconcilliation Current Medication List: was personally reviewed by me Blood Pressure Screening Patient's blood pressure: Elevated blood pressure Blood pressure disposition: Elevated BP felt to be situational Consults Time Called: 06 Consulting Physician: [facility] Returned Call: 07 I reviewed the patient's case with Dr. Cee. [facility] will [facility] the patient for further management. Impression Primary Impression: Abdominal pain Additional Impression: Elevated troponin Scribe Attestation The scribe's documentation has been prepared under my direction and personally reviewed by me in its entirety. I confirm that the note above accurately reflects all work, treatment, procedures, and medical decision making performed by me. Departure Information Dispostion Being Evaluated By Hospitalist Referrals Jefferson Suarez D.O. (PCP) Patient Instructions [facility] Problem Qualifiers Primary Impression: Abdominal pain Abdominal location: unspecified location Qualified Codes: R10.9 - Unspecified abdominal pain
[2016-12-01] MEDS ORDERED: IV FLUIDS COMPLETED PRN (08:00)
[2016-12-01] MEDS ORDERED: ONDANSETRON INJ 2 MG/ML 2 ML VIAL IV PRN (08:00)
[2016-12-01] MEDS ORDERED: ACETAMINOPHEN 325 MG TAB PO PRN (08:00)
[2016-12-01] MEDS ORDERED: GLUCAGON FOR INJ 1 MG VIAL SQ PRN (08:15)
[2016-12-01] MEDS ORDERED: DEXTROSE 50% 50 ML SYR IV PRN (08:15)
[2016-12-01] MEDS ORDERED: GLUCOSE 10 TABS/TUBE PO PRN (08:15)
[2016-12-01] MEDS ORDERED: GLUCOSE 40% GEL 15 GM TUBE PO PRN (08:15)
--- NOTE | 2016-12-01 09:17 | History and Physical ---
History & Physical Date & Time of Service: Dec 01, 2016 at 09:00 Chief Complaint: Abd Pain Primary Care Physician: Jefferson Suarez D.O. History of Present Illness Source: patient The patient is a 75 yo male who presents to the ER with complaints of lower quadrant abd pain that started last night. Pt reports he went to the [employer] game yesterday and had a turkey sandwich for lunch and then tilapia and broccoli for dinner at [facility]. Pt reports feeling this abd pain upon arrival at home. He states he couldn't sleep that night and reports taking pepto bismol x 2 for the discomfort. Pt states at that time the abd pain was 8 of 10 with no radiation and no associated nausea, vomiting, diarrhea, or fevers. Pt reports he had a similar presentation back in august 2016 and reports at that time following up with the surgeon at [facility]. He was scheduled for cholecystectomy in [place] on . He has hx of HOCM as well as CAD with mult stents he states placed over 20 yrs ago. Pt also has hx of IDDM as well. Pt reports currently pain improved with pain meds given in ER. Pt would prefer to hold off on any surgery at this time. Past Medical/Surgical History Medical Problems: (1) Diabetes Status: Chronic (2) Hypertrophic cardiomyopathy Status: Chronic (3) Kidney disease Status: Chronic Surgical Problems: (1) S/P CABG x 1 Status: Resolved Family History Patient reports no known family medical history. Social History Smoking Status: Never Smoker Smokeless Tobacco Use: No Alcohol Use: socially Marital Status: single Housing status: lives alone Occupational Status: retired Immunizations History of Influenza Vaccine: Yes History of Tetanus Vaccine?: Yes History of Pneumococcal: Yes History of Hepatitis B Vaccine: No Multi-Drug Resistant Organisms History of MDRO: No Allergies Coded Allergies: Atenolol (Verified Allergy, Unknown, UNKNOWN, 12/01/16) Erythromycin (Verified Allergy, Unknown, 12/01/16) PT DENIES ALLERGY TO THIS Fentanyl (Verified Allergy, Unknown, HICCUPS, 12/01/16) Ibuprofen (Verified Allergy, Unknown, STOMACH EROSION, 12/01/16) Naproxen (Unverified Allergy, Unknown, STOMACH EROSION, 12/01/16) Sulfa Drugs (Unverified Allergy, Unknown, SHORTNESS OF BREATH, 12/01/16) Midazolam (Verified Adverse Reaction, Mild, HICCUPS, 12/01/16) Home Medications Scheduled , 1 TABLET PO QAM Aspirin (Aspir-81), 1 TAB PO HS Canagliflozin (Invokana), 100 MG PO QAM Citalopram Hydrobromide (Celexa), 40 MG PO DAILY Fish Oil ([place]-3), 2 CAPSULES PO QAM Gabapentin (Gabapentin), 300 MG PO TID Glipizide (Glipizide Er), 1 TAB PO QAM Hydrochlorothiazide (Hydrochlorothiazide), 12.5 MG PO QAM Insulin Glargine (Lantus Solostar), 25 UNITS SQ HS Latanoprost (Latanoprost), 1 DROP OPL HS Metoprolol Succinate (Toprol Xl), 25 MG PO QAM Multivitamin (Multivitamin), 1 TABLET PO QAM Simvastatin (Zocor), 40 MG PO HS Timolol Maleate (Ophth) (Timoptic-Xe 0.5% Oph), 1 DROPS OPB DAILY Scheduled PRN Tramadol HCl (Tramadol HCl), 1 TAB PO Q4-6H PRN for Pain Review of Systems Constitutional: No fever, No chills, No sweats, No weight loss, No weakness ENT: No hearing loss, No unusual epistaxis, No nasal symptoms, No sore throat, No tinnitus Respiratory: No cough, No sputum, No wheezing, No shortness of breath, No dyspnea on exertion Cardiovascular: No chest pain, No orthopnea, No PND, No edema, No claudication Abdomen: + pain, No nausea, No diarrhea, No constipation, No GI bleeding Musculoskeletal: No joint pain, No muscle pain, No swelling, No calf pain Genitourinary - Male: No hematuria, No dysuria, No urinary urgency Neurologic: No memory loss, No paralysis, No weakness, No numbness/tingling Psychiatric: No depression symptoms, No anhedonism, No insomnia Endocrine: No fatigue, No excessive thirst, No excessive urination Integumentary: No rash, No itch Allergic / Immunologic: No environmental allergies, No seasonal allergies, No pet sensitivities, No hives Physical Exam Vital Signs Date Time Temp Pulse Resp B/P (MAP) Pulse Ox O2 Delivery O2 Flow Rate FiO2 12/01/16 07:50 80 20 117/67 Room Air 12/01/16 06:38 60 18 128/64 96 Room Air 12/01/16 05:43 36.4 61 12/01/16 05:06 61 12/01/16 04:31 83 18 150/91 100 Room Air General Appearance: WD/WN, no apparent distress Head: normocephalic, atraumatic Eyes: normal inspection, PERRL, EOMI, sclerae normal ENT: normal ENT inspection, hearing grossly normal, TMs normal, pharynx normal Neck: supple, no adenopathy Respiratory/Chest: chest non-tender, lungs clear, normal breath sounds, no respiratory distress Cardiovascular: regular rate, rhythm, no edema, no gallop, no JVD Abdomen/GI: normal bowel sounds, soft, no pulsatile mass, + tenderness Back: normal inspection, no CVA tenderness, no muscle spasm, normal range of motion Extremities/Musculoskelatal: normal inspection, no calf tenderness, normal capillary refill, no pedal edema Neurologic/Psych: no motor/sensory deficits, alert, normal mood/affect, oriented x 3 Skin: normal color, warm/dry, no rash Lymphatic: no adenopathy Diagnostics Laboratory Results Results Past 24 Hours Test 12/01/16 04:45 12/01/16 04:55 12/01/16 05:50 Range/Units White Blood Count 8.69 4.8-10.8 K/uL Red Blood Count 4.93 4.7-6.1 M/uL Hemoglobin 15.3 14.0-18.0 g/dL Hematocrit 42.6 42-52 % Mean Corpuscular Volume 86.4 80-100 fL Mean Corpuscular Hemoglobin 31.0 25-34 pg Mean Corpuscular Hemoglobin Concent 35.9 32-36 g/dl Platelet Count 130 130-400 K/uL Mean Platelet Volume 11.0 7.4-10.4 fL Neutrophils (%) (Auto) 47.4 % Lymphocytes (%) (Auto) 37.6 % Monocytes (%) (Auto) 11.3 % Eosinophils (%) (Auto) 3.2 % Basophils (%) (Auto) 0.3 % Neutrophils # (Auto) 4.11 1.4-6.5 K/uL Lymphocytes # (Auto) 3.27 1.2-3.4 K/uL Monocytes # (Auto) 0.98 0.11-0.59 K/uL Eosinophils # (Auto) 0.28 0-0.5 K/uL Basophils # (Auto) 0.03 0-0.2 K/uL RDW Standard Deviation 40.5 36.4-46.3 fL RDW Coefficient of Variation 12.8 11.5-14.5 % Immature Granulocyte % (Auto) 0.2 % Immature Granulocyte # (Auto) 0.02 0.00-0.02 K/uL Sodium Level 138 136-145 mmol/L Potassium Level 3.7 3.5-5.1 mmol/L Chloride Level 102 98-107 mmol/L Carbon Dioxide Level 30 21-32 mmol/L Anion Gap 6.0 3-11 mmol/L Blood Urea Nitrogen 36 7-18 mg/dl Creatinine 1.80 0.60-1.40 mg/dl Est Creatinine Clear Calc Drug Dose 31.0 ml/min Estimated GFR () 41.2 Estimated GFR (Non- 35.5 BUN/Creatinine Ratio 20.1 10-20 Random Glucose 167 70-99 mg/dl Calcium Level 9.2 8.5-10.1 mg/dl Total Bilirubin 0.7 0.2-1 mg/dl Aspartate Amino Transf (AST/SGOT) 19 15-37 U/L Alanine Aminotransferase (ALT/SGPT) 27 12-78 U/L Alkaline Phosphatase 114 45-117 U/L Total Protein 7.6 6.4-8.2 gm/dl Albumin 3.7 3.4-5.0 gm/dl Globulin 3.9 2.5-4.0 gm/dl Albumin/Globulin Ratio 0.9 0.9-2 Lipase 393 73-393 U/L Troponin I 0.104 0-0.045 ng/ml Lactic Acid Level 1.2 0.4-2.0 mmol/L Impression Assessment and Plan Pt is a 75 yo male with hx of HOCM, CAD, IDDM, depression/anxiety who presents to ER with lower quadrant abd pain that started the evening of 11/30 Abd pain likely gallbladder in etiology, gallbladder US does not show any acute inflammation at this time. Will keep NPO and place on morphine PRN pain. Lipase WNL. Obtain records form [facility] regarding gallbladder studies and surgeon consultation. Pt has appointment on 12/05 for cholecystectomy at [facility]. No need for surgery consultation at this time unless pain worsens. Will advance diet as tolerated. CAD with mult stents in setting of NSTEMI. Cont BB, zocor. No chest pain at this time. EKG paced rhythm HOCM - recent ECHO 2 weeks ago, Will request records from [facility] [facility] Dr Morley at [facility]. CKD stage 3 - Cr 1.8, at baseline Dyslipidemia cont zocor Depression cont celexa Neuropathy cont gabapentin Pt is FULL CODE VTE Prophylaxis VTE Risk Assessment Done? Y/N: Yes Risk Level: Moderate
[2016-12-01 10:32] VITALS: BP 128/78; PULSE 91; TEMP 36.4; O2SAT 95; Ht 167.6 cm; Wt 71.1 kg
[2016-12-01] MEDS: INSULIN ASPART 100 UNITS/ML 3 ML PEN SC SCH ×3 (11:00→20:45)
[2016-12-01 11:32] VITALS: BP 96/53; PULSE 67; TEMP 36.4; O2SAT 94
[2016-12-01] MEDS: GABAPENTIN 300 MG CAP PO SCH ×3 (13:36→20:50)
[2016-12-01] MEDS: CITALOPRAM 40 MG TAB PO SCH (13:36)
[2016-12-01] MEDS: TIMOLOL GFS 0.5% OPH SOLN 74 DROPS/5 ML BTL OPB SCH (13:36)
[2016-12-01] MEDS: METOPROLOL SUCC 25MG EXT REL TAB PO SCH (13:37)
[2016-12-01] MEDS: SODIUM CHLORIDE 0.9% 1000ML 1,000 ML IV SCH (13:39)
[2016-12-01 15:35] VITALS: BP 132/71; PULSE 60; TEMP 36.5; O2SAT 97
[2016-12-01] MEDS ORDERED: PNEUMOCOCCAL POLYSACCHARIDES 25 MCG/0.5 ML VIAL/SYR IM. ONE (16:00)
[2016-12-01] MEDS ORDERED: PNEUMOCOCCAL ADMINISTRATION CHARGE ONE (16:00)
[2016-12-01 19:15] VITALS: BP 124/69; PULSE 75; TEMP 36.9; O2SAT 95
[2016-12-01 20:15] VITALS: O2SAT 95
[2016-12-01] MEDS: LATANOPROST 0.005% OP SOLN 2.5 ML BTL OPL SCH (20:50)
[2016-12-01] MEDS: SIMVASTATIN 40 MG TAB PO SCH (20:50)
[2016-12-01] MEDS ORDERED: INSULIN GLARGINE SOLOSTAR 100 UNITS/ML 3 ML PEN SC SCH (21:00)
[2016-12-02] VITALS (10 sets, daily range): BP systolic 114–129; BP diastolic 59–74; PULSE 67–80; TEMP 36.3–38.4; O2SAT 92–97
[2016-12-02 03:39] LABS: URINE APPEARANCE CLEAR (CLEAR); URINE BILIRUBIN NEG (NEG); URINE COLOR YELLOW; URINE NITRITE NEG (NEG); URINE SPECIFIC GRAVITY 1.034 (1.000-1.030); UROBILINOGEN NEG (NEG); ZZUR CULT IF INDIC CLEAN CATCH NO
[2016-12-02 03:46] LABS: MANUAL MICROSCOPIC REQUIRED? NO; REVIEW REQ? NO
[2016-12-02 05:41] LABS: BASO % 0.1 %; BASO ABS # 0.02 K/uL (0-0.2); COMPLETE YES; EOS % 0.7 %; HEMATOCRIT 40.3 % (42-52); IG% 0.1 %; LYMPH % 12.6 %; LYMPH ABS # 1.76 K/uL (1.2-3.4); MEAN CELL VOLUME 88.8 fL (80-100); MEAN CORPUSCULAR HEMOGLOBIN 29.3 pg (25-34); MEAN PLATELET VOLUME 10.7 fL (7.4-10.4); MONO % 11.8 %; NEUT % 74.7 %; PLATELET COUNT 108 K/uL (130-400); RED BLOOD COUNT 4.54 M/uL (4.7-6.1); WHITE BLOOD COUNT 14.01 K/uL (4.8-10.8)
[2016-12-02 06:17] LABS: BUN/CREATININE RATIO 15.5 (10-20); CALCIUM 8.3 mg/dl (8.5-10.1); CREATININE 1.8 mg/dl (0.60-1.40); POTASSIUM 4.2 mmol/L (3.5-5.1)
[2016-12-02 06:24] LABS: ALB/GLOB RATIO 1.1 (0.9-2)
[2016-12-02] MEDS: TRAMADOL HCL 50 MG TAB PO PRN ×2 (07:41→22:23)
[2016-12-02] MEDS: SODIUM CHLORIDE 0.9% 1000ML 1,000 ML IV SCH ×2 (07:42→17:52)
[2016-12-02] MEDS: TIMOLOL GFS 0.5% OPH SOLN 74 DROPS/5 ML BTL OPB SCH (08:40)
[2016-12-02] MEDS: CITALOPRAM 40 MG TAB PO SCH (08:42)
[2016-12-02] MEDS: GABAPENTIN 300 MG CAP PO SCH ×3 (08:43→22:03)
[2016-12-02] MEDS: METOPROLOL SUCC 25MG EXT REL TAB PO SCH (08:44)
[2016-12-02] MEDS: INSULIN ASPART 100 UNITS/ML 3 ML PEN SC SCH ×4 (10:12→21:46)
--- NOTE | 2016-12-02 12:21 | Hospitalist Progress Note ---
Hospitalist Progress Note Date of Service Dec 02, 2016. (Anahi Buitrago ., LANC) Subjective Pt evaluation today including: conversation w/ patient, physical exam, chart review, lab review, review of studies, review of inpatient medication list Pain: 2/10 aching abdominal pain PO Intake: Tolerating clear liquid diet Voiding: no voiding problems Patient reports feeling better. The patient does complain of a 2/10 dull, aching pain located in the center of his abdomen and RUQ. He states he is tolerating his clear liquid diet without any additional pain, nausea or vomiting. He reports feeling fatigued after receiving Tramadol, but this has been helpful for his pain. The patient did develop a fever very early this morning with associated sweats but this has since resolved. The patient denies chills, chest pain, palpitations, claudication, cough, wheezing, shortness of breath, nausea, vomiting, dysuria, hematuria, urinary retention, paralysis, weakness, numbness and tingling. Additional Comments: See HPI for pertinent positives and negatives. All other systems reviewed and negative. (Anahi Buitrago ., JESSICA-C) Objective Vital Signs Date Time Temp Pulse Resp B/P (MAP) Pulse Ox O2 Delivery O2 Flow Rate FiO2 12/02/16 10:26 93 Room Air 12/02/16 08:07 37.3 12/02/16 08:05 70 14 126/72 (90) 93 Room Air 12/02/16 08:00 Room Air 12/02/16 04:15 Room Air 12/02/16 04:00 37.2 72 20 117/59 (78) 92 Room Air 12/02/16 01:45 37.5 12/02/16 00:15 97 Room Air 12/02/16 00:13 38.4 74 18 129/68 (88) 97 Room Air 12/01/16 20:15 95 Room Air 12/01/16 19:15 36.9 75 20 124/69 (87) 95 Room Air 12/01/16 15:35 36.5 60 22 132/71 (91) 97 Room Air (Anahi Buitrago, LANC) Physical Exam Notes: General appearance: Well-developed, well-nourished, no apparent distress Head: Normocephalic, atraumatic Eyes: Normal inspection, PERRL, EOMI ENT: Normal ENT inspection, hearing grossly normal, pharynx normal Neck: Supple, no JVD, trachea midline Respiratory/Chest: Lungs clear to auscultation, normal breath sounds, no respiratory distress Cardiovascular: +Systolic murmur. Regular rate & rhythm, no gallop Abdomen/GI: +Umbilical area and RUQ mildly TTP. Normal bowel sounds, soft Extremities/Musculoskeletal: Normal inspection, no calf tenderness, no pedal edema Neurological/Psych: Alert, normal mood/affect, oriented x 3 Skin: Normal color, warm/dry, no rash (Anahi Buitrago, AILYN) Laboratory Results Last 24 Hours Test 12/01/16 13:57 12/01/16 16:03 12/01/16 20:35 12/01/16 21:50 Troponin I 0.109 ng/ml 0.128 ng/ml Bedside Glucose 94 mg/dl 144 mg/dl Test 12/02/16 03:29 12/02/16 05:22 12/02/16 07:22 12/02/16 10:35 Urine Color YELLOW Urine Appearance CLEAR Urine pH 5.0 Urine Specific [place] 1.034 Urine Protein NEG Urine Glucose (UA) 3+ Urine Ketones NEG Urine Occult Blood NEG Urine Nitrite NEG Urine Bilirubin NEG Urine Urobilinogen NEG Urine Leukocyte Esterase NEG White Blood Count 14.01 K/uL Red Blood Count 4.54 M/uL Hemoglobin 13.3 g/dL Hematocrit 40.3 % Mean Corpuscular Volume 88.8 fL Mean Corpuscular Hemoglobin 29.3 pg Mean Corpuscular Hemoglobin Concent 33.0 g/dl Platelet Count 108 K/uL Mean Platelet Volume 10.7 fL Neutrophils (%) (Auto) 74.7 % Lymphocytes (%) (Auto) 12.6 % Monocytes (%) (Auto) 11.8 % Eosinophils (%) (Auto) 0.7 % Basophils (%) (Auto) 0.1 % Neutrophils # (Auto) 10.46 K/uL Lymphocytes # (Auto) 1.76 K/uL Monocytes # (Auto) 1.65 K/uL Eosinophils # (Auto) 0.10 K/uL Basophils # (Auto) 0.02 K/uL RDW Standard Deviation 42.5 fL RDW Coefficient of Variation 13.1 % Immature Granulocyte % (Auto) 0.1 % Immature Granulocyte # (Auto) 0.02 K/uL Sodium Level 137 mmol/L Potassium Level 4.2 mmol/L Chloride Level 102 mmol/L Carbon Dioxide Level 31 mmol/L Anion Gap 4.0 mmol/L Blood Urea Nitrogen 28 mg/dl Creatinine 1.80 mg/dl Est Creatinine Clear Calc Drug Dose 31.0 ml/min Estimated GFR () 41.2 Estimated GFR (Non- 35.5 BUN/Creatinine Ratio 15.5 Random Glucose 199 mg/dl Calcium Level 8.3 mg/dl Total Bilirubin 1.1 mg/dl Aspartate Amino Transf (AST/SGOT) 19 U/L Alanine Aminotransferase (ALT/SGPT) 20 U/L Alkaline Phosphatase 83 U/L Total Protein 6.2 gm/dl Albumin 3.2 gm/dl Globulin 3.0 gm/dl Albumin/Globulin Ratio 1.1 Bedside Glucose 166 mg/dl Troponin I 0.135 ng/ml (Anahi Buitrago ., AILYN) Assessment and Plan 75 y/o male with a history of CAD, [place] s/p stents and CABG, HTN, HLD, HOCM, DM II , CKD stage III, depression and neuropathy who presents to the ED on 12/01 with abdominal pain. RUQ ultrasound shows moderate gallbladder debris and small right renal cyst. No significant change from ultrasound August 2016. Abdominal pain likely gallbladder etiology--stable -Admit to telemetry -Pt with fever or 38.4 early 12/02, now resolved -Leukocytosis today with WBC 14.01 on 12/02, had previously been WNL -Total bilirubin elevated at 1.1 on 12/02, up from 0.7 -D/c diet, will make NPO -Increase IVF to NSS 100 cc/hr due to NPO status -Start Zosyn IV -Consult general surgery, appreciate recs: spoke with Dr. Stephen. Pt may proceed with scheduled rylee at [facility] on 12/05, no need to repeat HIDA scan. -[facility] feels that the pt requires an urgent cholecystectomy and did not accept the transfer. Attempted to speak to Dr. Stephen again but was in the OR. He will see pt later in afternoon -Continue morphine 2 mg IV q3h prn pain -Pt scheduled for elective cholecystectomy on 12/05 at [facility] Elevated troponin--pt denies any chest pain, SOB or other cardiac symptoms -Troponin still trending upward. Last troponin 0.135 on 12/02 -Continue to trend trop q8h until peaks CAD, h/o [place] s/p stents and CABG, HTN, HLD--stable -Continue Toprol 25 mg PO qd, and Zocor 40 mg PO qd -Hold ASA for surgery HOCM--pt w/recent echo 2 weeks ago at [facility], records pending DM II--last HgbA1c here in 2010 -Hold glipizide, metformin and Invokana -Insulin sliding scale -Check BSGs q ac and qhs -HgbA1c 7.8 on 12/02 CKD stage III--stable -Baseline creatinine 1.5-1.7 -Creatinine remains at 1.8 on 12/02 Depression--stable -Continue Celexa 40 mg PO qd Neuropathy -Continue gabapentin 300 mg PO TID DVT prophylaxis -Hold chemical prophylaxis due to surgery -NIC mcfarland and SCDs Code Status -Level I, FULL RESUSCITATION STATUS Dispo -Will transfer to [facility] for cholecystectomy. Bed available 12/03 (Anahi Buitrago, AILYN) Reviewed: Pt Seen/Exam by Me (Breonna Martins MD) History Physician Curator [employer] Supervision Note: I interviewed and examined the patient. Discussed with JESSICA Buitrago and agree with findings and plan as documented in the note. Any exceptions or clarifications are listed here: Pt with persistent right sided abd pain that waxes and wanes. Had a fever here last night and leukocytosis this AM. Zosyn started. I spent 1 hour coordinating care to try to transfer pt to [facility] where his Surgeon is located due to pt preference and because of his complicated cardiac history (his Woodworking Machine Operator and CT Surgeon are at [facility] as well). But because of his sepsis, acute cholecystitis, elevated troponin (but no ECG changes or chest pain), Surgeon at [facility] recommended urgent surgery at [facility] rather than transfer to [facility]. Pt agreeable to stay here for Surgery. HIDA scan ordered and is consistent with suspected acute rylee. Vitals reviewed NAD, AAOx3 RRR high pitched short IRMA heard in all points of auscultation but perhaps best heard at the apex CTAB no wcr Abd +BS, soft, +TTP right periumbilical and RUQ regions with some mild guarding , no rebound tenderness, no HSM Ext no edema or calf tenderness 75 yo male with a h/o HOCM with myectomy of heart, PPM, CAD s/p CABG and stents , HTN, HL, CKD stage III, DMII, here with acute on chronic cholecystitis, now with developing sepsis evidenced by leukocytosis and fever. -continue Zosyn -follow CBC, LFTs -hopeful for Surgery tomorrow after evaluation by [facility] Cardiology--> pt had outpt Cardiology eval at [facility] 2 weeks ago but no records available yet -elevated troponin likely mild demand ischemia in setting of sepsis and TERRA on CKD stage III--> troponin stable multiple times, no need to continue trending -no chest pain or evidence of CHF -restart ASA as soon as possible post-op Documented By: Breonna Martins (Breonna Martins MD)
[2016-12-02 13:00] LABS: ESTIMATED AVERAGE GLUCOSE 177 mg/dl; HA1C FLAG Normal (Normal); INR 1.3 (0.9-1.1); PARTIAL THROMBOPLASTIN RATIO 1.3; PROTHROMBIN TIME (PATIENT) 13.9 SECONDS (9.0-12.0)
[2016-12-02] MEDS ORDERED: HEPARIN SOD 5000 UNIT/0.5 ML CARP SQ SCH (14:00)
--- NOTE | 2016-12-02 14:54 | Discharge Instructions ---
Discharge Instructions Date of Service Dec 02, 2016. Admission Reason for Admission: Abdominal Pain, Elevated Troponin Discharge Discharge Diagnosis / Problem: Acute cholecystitis Discharge Goals Goal(s): Decrease discomfort, Improve function, Diagnostic testing, Therapeutic intervention Activity Recommendations Activity Limitations: as noted below Lifting Limitations: no more than 10 pounds Shower/Bathe: keep incision dry (until 12/06 and then may shower. Leave steri strips in place until they fall off on their own. May remove bandages on 12/06) Driving or Machine Use: no driving x 1 week . Instructions / Follow-Up Instructions / Follow-Up You were admitted and found to have acute cholecystitis with a gangrenous gallbladder. You had surgery to remove it and were continued on IV antibiotics. You did well postoperatively. Please follow up with Dr. Stehpen in 1 week-his office will call to schedule your appointment. Please follow up with your PCP within 1-2 weeks. Current Hospital Diet Patient's current hospital diet: Clear Liquid Diet, Diabetes Type 2 Diet Discharge Diet Recommended Diet: AHA Diet (Heart Healthy), Diabetes Type 2 Diet, N/A ( currently NPO) Procedures Procedures Performed: HIDA scan RUQ ultrasound Pending Studies Studies pending at discharge: yes List of pending studies: Aspirate fluid culture gallbladder-no growth to date Laboratory Results Last 24 Hours Test 12/04/16 11:52 12/04/16 17:36 12/04/16 20:52 12/05/16 01:53 Bedside Glucose 170 mg/dl 106 mg/dl 120 mg/dl 144 mg/dl Test 12/05/16 06:19 12/05/16 07:52 White Blood Count 7.03 K/uL Red Blood Count 3.32 M/uL Hemoglobin 10.1 g/dL Hematocrit 28.4 % Mean Corpuscular Volume 85.5 fL Mean Corpuscular Hemoglobin 30.4 pg Mean Corpuscular Hemoglobin Concent 35.6 g/dl Platelet Count 97 K/uL Mean Platelet Volume 10.1 fL Neutrophils (%) (Auto) 67.2 % Lymphocytes (%) (Auto) 20.6 % Monocytes (%) (Auto) 8.0 % Eosinophils (%) (Auto) 3.8 % Basophils (%) (Auto) 0.3 % Neutrophils # (Auto) 4.72 K/uL Lymphocytes # (Auto) 1.45 K/uL Monocytes # (Auto) 0.56 K/uL Eosinophils # (Auto) 0.27 K/uL Basophils # (Auto) 0.02 K/uL RDW Standard Deviation 42.5 fL RDW Coefficient of Variation 13.5 % Immature Granulocyte % (Auto) 0.1 % Immature Granulocyte # (Auto) 0.01 K/uL Sodium Level 139 mmol/L Potassium Level 3.3 mmol/L Chloride Level 106 mmol/L Carbon Dioxide Level 27 mmol/L Anion Gap 6.0 mmol/L Blood Urea Nitrogen 29 mg/dl Creatinine 1.70 mg/dl Est Creatinine Clear Calc Drug Dose 32.8 ml/min Estimated GFR () 44.1 Estimated GFR (Non- 38.1 BUN/Creatinine Ratio 17.1 Random Glucose 83 mg/dl Calcium Level 8.2 mg/dl Total Bilirubin 0.8 mg/dl Aspartate Amino Transf (AST/SGOT) 41 U/L Alanine Aminotransferase (ALT/SGPT) 54 U/L Alkaline Phosphatase 65 U/L Total Protein 5.9 gm/dl Albumin 2.3 gm/dl Globulin 3.6 gm/dl Albumin/Globulin Ratio 0.6 Bedside Glucose 78 mg/dl Hemoglobin A1c Test 12/02/16 12:31 Range/Units Estimated Average Glucose 177 mg/dl Hemoglobin A1c 7.8 H 4.5-5.6 % Medical Emergencies . Who to Call and When: Medical Emergencies: If at any time you feel your situation is an emergency, please call 911 immediately. . Non-Emergent Contact Non-Emergency issues call your: Primary Care Provider, Hydrogen Power Plant Engineer, Surgeon Call Non-Emergent contact if: you have a fever, your pain is not controlled, your pain is worsening, your pain is unusual for you, your pain is concerning you, wound has increased drainage, wound has increased redness, wound has increased pain, you have any medication questions . Past History Medical & Surgical History: (1) Acute cholecystitis (2) Abdominal pain . "Provider Documentation" section prepared by Anahi Buitrago. . VTE Core Measure Inpt VTE Proph given/why not?: SCD's
--- NOTE | 2016-12-02 15:01 | Discharge Summary ---
Discharge Summary Date of Service Dec 02, 2016. (Anahi Buitrago ., LANC) Discharge Summary Admission Date: Dec 01, 2016 at 07:57 Discharge Date: Dec 02, 2016 Discharge Disposition: Acute care facility (C) Principal Diagnosis: Acute cholecystitis Problems/Secondary Diagnoses: CAD, [place] s/p stents and CABG HTN HLD HOCM DM II CKD stage III Depression Neuropathy Immunizations: Have You Had Influenza Vaccine: Yes History of Tetanus Vaccine?: Yes History of Pneumococcal: Yes History of Hepatitis B Vaccine: No Procedures: GALLBLADDER-ABD LIMITED CLINICAL HISTORY: abd pain, hx stones TECHNIQUE: Ultrasound COMPARISON STUDY: 09/11/2016 FINDINGS: Moderate amount of gallbladder debris. No significant pericholecystic fluid. Gallbladder wall top limits of normal 3 mm. No evidence for distention of the common bile duct. Liver is uniform throughout. Pancreas is not seen due to overlying bowel gas. Right kidney is negative for hydronephrosis. 2.5 cm lower pole cyst. IMPRESSION: Moderate gallbladder debris. Normal caliber bile ducts. Small right renal cyst. No change from the prior exam. Consultations: General surgery--Dr. Stephen (Anahi Buitrago ., LANC) Medication Reconciliation Continued Medications: () 1 TABLET PO QAM Canagliflozin (Invokana) 100 Mg Tab 100 MG PO QAM, #30 Citalopram Hydrobromide (Celexa) 40 Mg Tab 40 MG PO DAILY, TAB Gabapentin (Gabapentin) 300 Mg Cap 300 MG PO TID Glipizide (Glipizide Er) 5 Mg Tab 1 TAB PO QAM, TAB Hydrochlorothiazide (Hydrochlorothiazide) 12.5 Mg Tab 12.5 MG PO QAM Insulin Glargine (Lantus Solostar) 100 Unit/Ml Inj 25 UNITS SQ HS, #15 Latanoprost (Latanoprost) 37 Drops/2.5 Ml Soln 1 DROP OPL HS, #9 Metoprolol Succinate (Toprol Xl) 25 Mg Tab 25 MG PO QAM Multivitamin (Multivitamin) Tab 1 TABLET PO QAM Simvastatin (Zocor) 40 Mg Tab 40 MG PO HS Timolol Maleate (Ophth) (Timoptic-Xe 0.5% Oph) 0.5 % Ghazala 1 DROPS OPB DAILY, ML 3 Refills Tramadol HCl (Tramadol HCl) 50 Mg Tab 1 TAB PO Q4-6H PRN for Pain Discontinued Medications: Aspirin (Aspir-81) 81 Mg Tab 1 TAB PO HS for 90 Days, TAB 3 Refills Fish Oil ([place]-3) 1 Ea Cap 2 CAPSULES PO QAM, 0 Refills Discharge Exam Patient reports feeling better. The patient does complain of a 2/10 dull, aching pain located in the center of his abdomen and RUQ. He states he is tolerating his clear liquid diet without any additional pain, nausea or vomiting. He reports feeling fatigued after receiving Tramadol, but this has been helpful for his pain. The patient did develop a fever very early this morning with associated sweats but this has since resolved. The patient denies chills, chest pain, palpitations, claudication, cough, wheezing, shortness of breath, nausea, vomiting, dysuria, hematuria, urinary retention, paralysis, weakness, numbness and tingling. Review of Systems: Constitutional: + fever, + sweats, + fatigue, No chills Eyes: No worsening of vision, No eye pain, No diplopia ENT: No hearing loss, No sore throat, No trouble swallowing Respiratory: No cough, No wheezing, No shortness of breath Cardiovascular: No chest pain, No claudication, No palpitations Abdomen: + pain (2/10 abdominal pain, aching), No nausea, No vomiting Musculoskeletal: No joint pain, No muscle pain, No calf pain Genitourinary - Male: No hematuria, No dysuria, No urinary retention Neurologic: No paralysis, No weakness, No numbness/tingling Integumentary: No rash, No itch, No color change Physical Exam: General Appearance: WD/WN, no apparent distress Eyes: normal inspection, PERRL, EOMI ENT: normal ENT inspection, hearing grossly normal, pharynx normal Neck: supple, no JVD, trachea midline Respiratory/Chest: lungs clear, normal breath sounds, no respiratory distress Cardiovascular: regular rate, rhythm, no gallop, + systolic murmur Abdomen / GI: normal bowel sounds, soft, + tenderness (umbilical area and RUQ TTP) Extremities: normal inspection, no calf tenderness, no pedal edema Neurologic/Psychiatric: alert, normal mood/affect, oriented x 3 Skin: normal color, warm/dry, no rash (Anahi Buitrago ., AILYN) Hospital Course 75 y/o male with a history of CAD, [place] s/p stents and CABG, HTN, HLD, HOCM, DM II , CKD stage III, depression and neuropathy who presents to the ED on 12/01 with abdominal pain. RUQ ultrasound shows moderate gallbladder debris and small right renal cyst. No significant change from ultrasound August 2016. Abdominal pain likely gallbladder etiology--stable -Admit to telemetry. Pt in paced rhythm with HR in 60s, did have short burst of tachycardia in 130s -Pt with fever or 38.4 early 12/02, now resolved -Leukocytosis with WBC 14.01 on 12/02, had previously been WNL -Total bilirubin elevated at 1.1 on 12/02, up from 0.7 -D/c diet, will make NPO -Start Zosyn IV -Consult general surgery, appreciate recs: spoke with Dr. Stephen. Pt may proceed with scheduled rylee at [facility] on 12/05, no need to repeat HIDA scan. -Continue morphine 2 mg IV q3h prn pain -Pt scheduled for elective cholecystectomy on 12/05 at [facility] Elevated troponin--pt denies any chest pain, SOB or other cardiac symptoms -Troponin still trending upward. Last troponin 0.135 on 12/02 -Continue to trend trop q8h until peaks CAD, h/o [place] s/p stents and CABG, HTN, HLD--stable -Continue Toprol 25 mg PO qd, and Zocor 40 mg PO qd -Hold ASA and fish oil for surgery HOCM--pt w/recent echo 2 weeks ago at [facility], records pending DM II--last HgbA1c here in 2010 -Hold glipizide, metformin and Invokana -Insulin sliding scale -Check BSGs q ac and qhs -HgbA1c 7.8 on 12/02 CKD stage III--stable -Baseline creatinine 1.5-1.7 -Creatinine remains at 1.8 on 12/02 Depression--stable -Continue Celexa 40 mg PO qd Neuropathy -Continue gabapentin 300 mg PO TID DVT prophylaxis -Hold chemical prophylaxis for surgery -NIC mcfarland and SCDs Code Status -Level I, FULL RESUSCITATION STATUS Dispo -Will transfer to [facility] for cholecystectomy Total Time Spent: Greater than 30 minutes This includes examination of the patient, discharge planning, medication reconciliation, and communication with other providers. (Anahi Buitrago .AILYN) Discharge Instructions Please refer to the electronic Patient Visit Report (Discharge Instructions) for additional information. (Anahi Buitrago PA-C) Additional Copies To Jefferson Suarez D.O. History please see updated discharge summary dated 12/05/16 (Breonna Martins MD) Assessment/Plan 75 y/o male with a history of CAD, [place] s/p stents and CABG, HTN, HLD, HOCM s/p myomectomy, chronic diastolic CHF, DM II, CKD stage III, depression and neuropathy who presents to the ED on 12/01 with abdominal pain. RUQ ultrasound shows moderate gallbladder debris and upper limit of normal gallbladder wall thickness; subsequent HIDA scan confirms acute on chronic cholecystitis. By the morning after admission, he became septic as evidenced by a leukocytosis and fever along with the source of infection. Acute on chronic cholecystitis, POD #1 status post laparoscopic cholecystectomy , sepsis-continues to improve now that he's had his gallbladder out -continue Zosyn x 1 more day as per Surgery -follow CBC, LFTs -Appreciate general surgery management -Pain control -d/c'd IV fluids -Leukocytosis and thrombocytopenia likely related to infection and are improving -pathology showed gangrenous GB Elevated troponin likely mild demand ischemia in setting of sepsis and TERRA on CKD stage III--> troponin stable multiple times, no need to continue trending -no chest pain -restart ASA tomorrow AM -Continue telemetry monitoring CAD, h/o [place] s/p stents and CABG, HTN, HLD, pacemaker in situ, acute on chronic diastolic CHF--worsening pulm edema on exam, continues with acute respiratory insufficiency requiring O2 - restart HCTZ and give an extra dose tonight--> pt unsure if he has had lasix previously and reports SOB/wheezing with sulfa allergy -Continue Toprol 25 mg PO qd, and Zocor 40 mg PO qd -restart ASA HOCM--pt w/recent echo 2 weeks ago at [facility], chronic diastolic dysfunction -Appreciate Cardiology input DM II-with hyperglycemia postoperatively- HgbA1c 7.8%. Hyperglycemia improved now -Hold glipizide, metformin and Invokana but can restart upon discharge -Pharmacy started Insulin basal and bolus here and will manage -Check BSGs q ac and qhs CKD stage III--with mild renal insufficiency with creatinine of 1.8 on admission --> up to 1.9 today -Baseline creatinine 1.5-1.7 -renally dose meds, avoid nephrotoxins Depression--stable -Continue Celexa 40 mg PO qd Neuropathy -Continue gabapentin 300 mg PO TID DVT prophylaxis -Hold chemical prophylaxis due to surgery -NIC mcfarland and SCDs Code Status -Level I, FULL RESUSCITATION STATUS Dispo-likely to home in 1-2 days (Breonna Martins MD)
[2016-12-02] MEDS ORDERED: PIPERACILL/TAZOBAC CONSULT ACTIVE PRN (16:00)
[2016-12-02] MEDS ORDERED: NURSING VERBAL MED ORDER ONE (16:00)
[2016-12-02] MEDS ORDERED: PIPERACILL/TAZOBAC IV 3.375 GM in DEXTROSE 5% 100ML IV ONE (16:00)
[2016-12-02] MEDS ORDERED: PIPERACILL/TAZOBAC IV 3.375 GM in DEXTROSE 5% 100ML 100 ML IV SCH (18:00)
--- NOTE | 2016-12-02 18:50 | Pre-Operative Consultation ---
History General Date of Service: Dec 02, 2016. HPI HPI: This is a 75 year old male with complaints of constant epigastric abdominal pain beginning a few hours ago and a similar episode months ago. He is scheduled for a cholecystectomy in [place] in four days. He states that his pain began as he was trying to fall asleep. The patient states that his pain worsened since it began. He also complains of nausea, chills and subjective fevers. He denies any modifying factors. He denies any diarrhea or urinary symptoms. An ultrasound shows debris without signs of cholecystitis. WBC elevated today. Pain still fairly constant. He also has elevated troponin. Procedure Urgency: Acute Risk Assessment Daily beta myrna use?: Yes Beta Myrna Details Indication Beta Myrna use: hypertension Problem List Medical Problems: (1) Abdominal pain Status: Acute (2) Dehydration Status: Acute (3) Elevated troponin Status: Acute Medical & Surgical History Past Medical History: anxiety, diabetes, heart disease (hypertrophied cardiomyopathy), high cholesterol, renal disease (stage III) Past Surgical History: coronary bypass surgery Family History Family History: no pertinent family hx Social History Hx Tobacco Use In Past Year?: No Smoking Status: Never Smoker Alcohol: none Marital status: single Housing status: lives alone Occupation status: retired Immunizations Have You Had Influenza Vaccine: Yes Have You Had Tetanus Vaccine: Yes History of Pneumococcal: Yes History Hepatitis B Vaccine: No Allergies Allergies: Coded Allergies: Atenolol (Verified Allergy, Unknown, UNKNOWN, 12/01/16) Erythromycin (Verified Allergy, Unknown, 12/01/16) PT DENIES ALLERGY TO THIS Fentanyl (Verified Allergy, Unknown, HICCUPS, 12/01/16) Ibuprofen (Verified Allergy, Unknown, STOMACH EROSION, 12/01/16) Naproxen (Unverified Allergy, Unknown, STOMACH EROSION, 12/01/16) Sulfa Drugs (Unverified Allergy, Unknown, SHORTNESS OF BREATH, 12/01/16) Midazolam (Verified Adverse Reaction, Mild, HICCUPS, 12/01/16) Medications Current Inpatient Medications Current Inpatient Medications Medications (Trade) Dose Ordered Sig/Gay Route Start Time Stop Time Status Last Admin Dose Admin Acetaminophen (Tylenol Tab) 650 mg Q4H PRN PO 12/01/16 08:00 12/31/16 07:59 Ondansetron HCl (Zofran Inj) 4 mg Q6H PRN IV 12/01/16 08:00 12/31/16 07:59 Miscellaneous (Iv Fluids Completed) 1 ea PRN PRN N/A 12/01/16 08:00 12/01/17 07:59 Morphine Sulfate (MoRPHine SULFATE INJ) 2 mg Q3HWA PRN IV 12/01/16 08:15 12/15/16 08:14 Insulin Aspart (novoLOG ASPART) SLIDING SCALE If C... ACHS SC 12/01/16 11:00 12/31/16 10:59 12/02/16 12:05 5 UNITS Glucose (Glucose 40% Gel) 15-30 GRAMS 15 GRAMS... UD PRN PO 12/01/16 08:15 12/31/16 08:14 Glucose (Glucose Chew Tab) 4-8 Tablets 4 Tabl... UD PRN PO 12/01/16 08:15 12/31/16 08:14 Dextrose (Dextrose 50% 50ML Syringe) 25-50ML OF 50% DW IV FOR... UD PRN IV 12/01/16 08:15 12/31/16 08:14 Glucagon (Glucagon Inj) 1 mg UD PRN SQ 12/01/16 08:15 12/31/16 08:14 Citalopram Hydrobromide (celeXA TAB) 40 mg DAILY PO 12/01/16 09:00 12/31/16 08:59 12/02/16 08:42 40 MG Gabapentin (Neurontin Cap) 300 mg TID PO 12/01/16 09:00 12/31/16 08:59 12/02/16 15:38 300 MG Latanoprost (Xalatan Oph Soln) 1 drops HS OPL 12/01/16 21:00 12/31/16 20:59 12/01/16 20:50 1 DROPS Metoprolol Succinate (Toprol Xl Tab) 25 mg QAM PO 12/01/16 09:00 12/31/16 08:59 12/02/16 08:44 25 MG Simvastatin (Zocor Tab) 40 mg HS PO 12/01/16 21:00 12/31/16 20:59 12/01/16 20:50 40 MG Timolol Maleate (Timoptic-Xe 0.5% Oph Soln) 1 drops DAILY OPB 12/01/16 09:00 12/31/16 08:59 12/02/16 08:40 1 DROPS Tramadol HCl (Ultram Tab) 50 mg Q6 PRN PO 12/01/16 09:00 12/31/16 08:59 12/02/16 07:41 50 MG Insulin Glargine (Lantus Solostar Pen) 10 units HS SC 12/01/16 21:00 12/31/16 20:59 12/01/16 20:51 10 UNITS Sodium Chloride 1,000 ml @ 100 mls/hr Q10H IV 12/02/16 14:15 01/01/17 14:14 12/02/16 17:52 100 MLS/HR Piperacillin Sod/ Tazobactam Sod 3.375 gm/Dextrose 115 ml @ 28.75 mls/ hr Q8@0600,1400,2200 IV 12/02/16 22:00 12/12/16 21:59 Piperacillin Sod/ Tazobactam Sod (Consult) 1 ea UD PRN N/A 12/02/16 16:00 01/01/17 15:59 Docusate Sodium (coLACE CAP) 100 mg BID PO 12/02/16 21:00 01/01/17 20:59 Review of Systems Review of Systems Constitutional: chills, denies diaphoresis, fever Eyes: reports: no symptoms ENT: reports: no symptoms reported Cardiovascular: denies: chest pain, chest tightness, chest pressure, palpitations, syncope Respiratory: denies: short of breath, stridor Gastrointestinal: abdominal pain, denies constipation, denies diarrhea, nausea , denies vomiting Genitourinary - Male: reports: no symptoms Musculoskeletal: denies back pain, denies joint pain, denies joint swelling Integumentary: denies change in color, denies change in hair/nails, denies lumps, denies rash Neurologic: reports: no symptoms Psychiatric: reports: anxiety, denies: depression Endocrine: no symptoms Hematologic / Lymphatic: no symptoms Allergic / Immunologic: no symptoms Physical Exam Physical Exam General Appearance: + WD/WN, No distress Ears, Nose, Throat: + normal ENT inspection Neck: No abnormal inspection, No limited range of motion, No tracheal deviation , No lymphadenophy Respiratory: No chest tenderness, No accessory muscle use, No decreased breath sounds, No rhonchi, No stridor, No wheezing Cardiovascular: No tachycardia, No gallop/S3, No diastolic murmur, No gallop/S4 , No bradycardia, No systolic murmur Abdomen: + tenderness (minimal), No rebound, No distension, No hernia, No guarding, No mass Extremities: No abnormal range of motion, No deformity, No swelling, No calf tenderness, No inflammation Neurologic/Psychiatric: No motor deficit/weakness, No disorientation, No sensory deficit Skin Characteristics: No abnormal color, No diaphoresis, No pallor, No jaundice , No rash Diagnostics Labs Labs Results Past 24 Hours Test 12/01/16 20:35 12/01/16 21:50 12/02/16 03:29 12/02/16 05:22 Range/Units Bedside Glucose 144 70-99 mg/dl Troponin I 0.128 0-0.045 ng/ml Urine Color YELLOW Urine Appearance CLEAR CLEAR Urine pH 5.0 4.5-7.5 Urine Specific [place] 1.034 1.000-1.030 Urine Protein NEG NEG Urine Glucose (UA) 3+ NEG Urine Ketones NEG NEG Urine Occult Blood NEG NEG Urine Nitrite NEG NEG Urine Bilirubin NEG NEG Urine Urobilinogen NEG NEG Urine Leukocyte Esterase NEG NEG White Blood Count 14.01 4.8-10.8 K/uL Red Blood Count 4.54 4.7-6.1 M/uL Hemoglobin 13.3 14.0-18.0 g/dL Hematocrit 40.3 42-52 % Mean Corpuscular Volume 88.8 80-100 fL Mean Corpuscular Hemoglobin 29.3 25-34 pg Mean Corpuscular Hemoglobin Concent 33.0 32-36 g/dl Platelet Count 108 130-400 K/uL Mean Platelet Volume 10.7 7.4-10.4 fL Neutrophils (%) (Auto) 74.7 % Lymphocytes (%) (Auto) 12.6 % Monocytes (%) (Auto) 11.8 % Eosinophils (%) (Auto) 0.7 % Basophils (%) (Auto) 0.1 % Neutrophils # (Auto) 10.46 1.4-6.5 K/uL Lymphocytes # (Auto) 1.76 1.2-3.4 K/uL Monocytes # (Auto) 1.65 0.11-0.59 K/uL Eosinophils # (Auto) 0.10 0-0.5 K/uL Basophils # (Auto) 0.02 0-0.2 K/uL RDW Standard Deviation 42.5 36.4-46.3 fL RDW Coefficient of Variation 13.1 11.5-14.5 % Immature Granulocyte % (Auto) 0.1 % Immature Granulocyte # (Auto) 0.02 0.00-0.02 K/uL Sodium Level 137 136-145 mmol/L Potassium Level 4.2 3.5-5.1 mmol/L Chloride Level 102 98-107 mmol/L Carbon Dioxide Level 31 21-32 mmol/L Anion Gap 4.0 3-11 mmol/L Blood Urea Nitrogen 28 7-18 mg/dl Creatinine 1.80 0.60-1.40 mg/dl Est Creatinine Clear Calc Drug Dose 31.0 ml/min Estimated GFR () 41.2 Estimated GFR (Non- 35.5 BUN/Creatinine Ratio 15.5 10-20 Random Glucose 199 70-99 mg/dl Calcium Level 8.3 8.5-10.1 mg/dl Total Bilirubin 1.1 0.2-1 mg/dl Aspartate Amino Transf (AST/SGOT) 19 15-37 U/L Alanine Aminotransferase (ALT/SGPT) 20 12-78 U/L Alkaline Phosphatase 83 45-117 U/L Total Protein 6.2 6.4-8.2 gm/dl Albumin 3.2 3.4-5.0 gm/dl Globulin 3.0 2.5-4.0 gm/dl Albumin/Globulin Ratio 1.1 0.9-2 Test 12/02/16 07:22 12/02/16 10:35 12/02/16 12:00 12/02/16 12:31 Range/Units Bedside Glucose 166 184 70-99 mg/dl Troponin I 0.135 0-0.045 ng/ml Prothrombin Time 13.9 9.0-12.0 SECONDS Prothromb Time International Ratio 1.3 0.9-1.1 Activated Partial Thromboplast Time 34.4 21.0-31.0 SECONDS Partial Thromboplastin Ratio 1.3 Estimated Average Glucose 177 mg/dl Hemoglobin A1c 7.8 4.5-5.6 % Test 12/02/16 15:52 12/02/16 18:30 Range/Units Bedside Glucose 126 70-99 mg/dl Diagnostic Radiology Diagnostic Radiology GALLBLADDER-ABD LIMITED CLINICAL HISTORY: abd pain, hx stones TECHNIQUE: Ultrasound COMPARISON STUDY: 09/11/2016 FINDINGS: Moderate amount of gallbladder debris. No significant pericholecystic fluid. Gallbladder wall top limits of normal 3 mm. No evidence for distention of the common bile duct. Liver is uniform throughout. Pancreas is not seen due to overlying bowel gas. Right kidney is negative for hydronephrosis. 2.5 cm lower pole cyst. IMPRESSION: Moderate gallbladder debris. Normal caliber bile ducts. Small right renal cyst. No change from the prior exam. Impression Assessment and Plan Assessment and Plan Gallbladder disease -US without signs of cholecystitis -HIDA scan to assess if acute cholecystitis -agree with IV zosyn -Cardiology consult with elevated troponin and cardiac history -depending on HIDA result and cards evaluation may need lap rylee here or in [place]
[2016-12-02] MEDS: MoRPHine SULFATE 2 MG/ML CARP IV PRN ×2 (20:20→21:24)
--- NOTE | 2016-12-02 21:06 | DIAGNOSTIC IMAGING REPORT ---
NUCLEAR MEDICINE HEPATOBILIARY SCAN HISTORY: Right upper quadrant abdominal pain. suspect acute cholecystitis COMPARISON: Abdominal ultrasound 12/01/2016. TECHNIQUE: Immediately following the intravenous administration of 5.5 mCi Tc-99m Choletec, dynamic anterior abdominal imaging was performed. 2 mg of intravenous morphine was also administered for the examination followed by an additional 30 minutes of dynamic imaging. FINDINGS: Uniform hepatic tracer accumulation is shown. Prompt intrahepatic biliary excretion is seen. The common bile duct and small bowel are visualized at 10 minutes. The gallbladder was not identified during the initial 60 minutes. Therefore, 2 mg of intravenous morphine was administered. An additional 30 minutes was also obtained. The gallbladder was not identified on the additional 30 minutes. IMPRESSION: Above findings are consistent with acute cholecystitis/cystic duct obstruction. Electronically signed by: Panchito Cortes M.D. 12/02/2016 9:05 PM Dictated Date/Time: 12/02/2016 9:01 PM
[2016-12-02] MEDS ORDERED: INSULIN GLARGINE SOLOSTAR 100 UNITS/ML 3 ML PEN SC ONE (21:55)
[2016-12-02] MEDS: LATANOPROST 0.005% OP SOLN 2.5 ML BTL OPL SCH (22:02)
[2016-12-02] MEDS: SIMVASTATIN 40 MG TAB PO SCH (22:03)
[2016-12-02] MEDS: PIPERACILL/TAZOBAC IV 3.375 GM in DEXTROSE 5% 100ML IV SCH (22:04)
[2016-12-02] MEDS: DOCUSATE SODIUM 100 MG CAP PO SCH (22:53)
[2016-12-02] MEDS: DICLOFENAC SOD 1% GEL 100 GM TUBE EXT PRN (22:54)
[2016-12-03] VITALS (16 sets, daily range): BP systolic 91–147; BP diastolic 58–81; PULSE 60–75; TEMP 36.3–37.5; O2SAT 92–98
[2016-12-03] MEDS: SODIUM CHLORIDE 0.9% 1000ML 1,000 ML IV SCH ×3 (02:21→20:41)
[2016-12-03] MEDS: MoRPHine SULFATE 2 MG/ML CARP IV PRN (02:21)
[2016-12-03] MEDS: PIPERACILL/TAZOBAC IV 3.375 GM in DEXTROSE 5% 100ML IV SCH ×3 (05:36→23:04)
[2016-12-03 06:02] LABS: HEMATOCRIT 38.4 % (42-52); MEAN CELL VOLUME 87.1 fL (80-100); MEAN CORPUSCULAR HEMOGLOBIN 31.5 pg (25-34); MEAN CORPUSCULAR HGB CONC 36.2 g/dl (32-36); RED BLOOD COUNT 4.41 M/uL (4.7-6.1); WHITE BLOOD COUNT 19.82 K/uL (4.8-10.8)
[2016-12-03 06:31] LABS: BASO % 0.1 %; BASO ABS # 0.01 K/uL (0-0.2); BUN/CREATININE RATIO 13.4 (10-20); CALCIUM 8.1 mg/dl (8.5-10.1); COMPLETE YES; CREATININE 1.7 mg/dl (0.60-1.40); EOS % 0.1 %; IG% 0.4 %; LYMPH % 4.8 %; LYMPH ABS # 0.96 K/uL (1.2-3.4); MEAN PLATELET VOLUME 10.1 fL (7.4-10.4); MONO % 12.4 %; NEUT % 82.2 %; PLATELET COUNT 88 K/uL (130-400); PLT ESTIMATE DECREASED; POTASSIUM 3.8 mmol/L (3.5-5.1)
[2016-12-03 06:40] LABS: ALB/GLOB RATIO 0.7 (0.9-2)
[2016-12-03] MEDS: INSULIN ASPART 100 UNITS/ML 3 ML PEN SC SCH ×4 (07:00→20:53)
[2016-12-03] MEDS ORDERED: ONDANSETRON INJ 2 MG/ML 2 ML VIAL ONE (08:01)
[2016-12-03] MEDS ORDERED: LIDOCAINE HCL 2% 2 ML VIAL (20MG/ML) ONE (08:01)
[2016-12-03] MEDS ORDERED: ROCURONIUM BROMIDE 10 MG/ML 5 ML VIAL IV ONE (08:01)
[2016-12-03] MEDS ORDERED: PROPOFOL IV EMULSION 10 MG/ML 20 ML VIAL IV ONE (08:01)
[2016-12-03] MEDS ORDERED: DEXAMETHASONE SOD INJ 4 MG/ML VIAL ONE (08:01)
[2016-12-03] MEDS ORDERED: FENTANYL CITRATE INJ 50 MCG/1 ML 2 ML VIAL ONE (08:01)
--- NOTE | 2016-12-03 08:07 | History & Physical Bridge Note ---
H&P Re-Evaluation Bridge Note: I have examined the patient, reviewed the History & Physical and in the interval since the performance of the History & Physical I have noted the following changes of clinical significance: No changes noted
[2016-12-03] MEDS ORDERED: BUPIVACAINE/EPINEPHRINE 0.5% MPF 1:200,000 30 ML VIAL ONE (08:12)
[2016-12-03] MEDS ORDERED: COLLAGEN HEMOSTAT ABSORBABLE ONE (09:32)
[2016-12-03] MEDS ORDERED: GLYCOPYRROLATE INJ 0.2 MG/ML VIAL ONE (09:45)
[2016-12-03] MEDS ORDERED: NEOSTIGMINE METHYLSULFATE 1 MG/ML 10ML VIAL ONE (09:45)
[2016-12-03] MEDS ORDERED: FLOSEAL HEMOSTATIC MATRIX 10ML TOP ONE (10:06)
[2016-12-03] MEDS ORDERED: ESMOLOL HCL 10 MG/ML 10 ML VIAL ONE (10:08)
--- NOTE | 2016-12-03 10:12 | [facility] Post Operative Brief Note ---
Immediate Operative Summary Operative Date Dec 03, 2016. Pre-Operative Diagnosis Acute cholecystitis Post-Operative Diagnosis Same as preop Procedure(s) Performed Laparoscopic cholecystectomy Surgeon Dr. Stephen Art Coordinator Surgeon(s) Dr. Elder Estimated Blood Loss 75 cc Findings nearly gangrenous GB; acute inflammation Specimens Gall bladder contents sent for routine culture and sensitivity, gram stain Permanent specimen:gallbladder A: gallbladder Drains none Anesthesia GETA w/marcaine Complication(s) None Disposition Recovery Room / PACU
[2016-12-03] MEDS ORDERED: ONDANSETRON INJ 2 MG/ML 2 ML VIAL IV PRN (10:15)
[2016-12-03] MEDS ORDERED: MoRPHine SULFATE 2 MG/ML CARP IV PRN (10:15)
--- NOTE | 2016-12-03 10:57 | OPERATIVE REPORT ---
DATE OF OPERATION: 12/03/2016 PREOPERATIVE DIAGNOSIS: Acute cholecystitis. POSTOPERATIVE DIAGNOSIS: Acute gangrenous cholecystitis. PROCEDURE PERFORMED: Laparoscopic cholecystectomy. SURGEON: Dr. Godwin Stephen. ROLLER SKATE REPAIRER: Dr Marcelina Elder M.D. ESTIMATED BLOOD LOSS: 75 mL. COMPLICATIONS: None. DRAINS: None. SPECIMENS: Gallbladder to pathology, intraoperative gallbladder cultures. INDICATION FOR PROCEDURE: This is a 75-year-old white male admitted with right upper quadrant pain and underwent workup with ultrasound which was fairly normal, but he continued to have pain, had an elevation of white count. HIDA scan was done which showed an acute cholecystitis. He has been on IV antibiotics. He was seen by cardiology for his hypertrophic cardiomyopathy, was cleared by anesthesia and will be taken to the OR for laparoscopic cholecystectomy. We talked to him about the risks in detail. DESCRIPTION OF PROCEDURE: The patient was taken to the OR and underwent excellent general endotracheal anesthesia. His abdomen was prepped and draped in normal sterile fashion. Transverse supraumbilical incision was made and dissection was taken down to identify his anterior fascia. Two Vicryls were placed on either side of midline. The midline was incised sharply. Robert trocar was then inserted. Good pneumoperitoneum achieved to 15 mmHg pressure. The patient was placed in head up and rolled to the left. He had an obvious inflamed gallbladder. This was aspirated. The aspirated contents were sent for Gram stain, culture. This facilitated grasping the fundus of the gallbladder. The peritoneal attachments were taken down. He had a thickened hard-walled gallbladder. The neck was grasped and retracted laterally. Using sharp and blunt dissection, the cystic duct and cystic artery were identified and skeletonized. A medial and lateral window was created in the gallbladder and gallbladder fossa showing these structures going straight to the gallbladder. The cystic plate was also noted. Once this was confirmed, 3 clips were placed distally on the cystic duct, 1 proximally and the cystic duct was transected. Two clips were placed proximally in the cystic artery, 1 distally in the cystic artery and cystic artery was transected. A posterior branch was also clipped. His liver was very friable. Gallbladder was removed using electrocautery. There were raw areas on the gallbladder which were cauterized, but still was oozing. This was the source of the blood loss. Using Surgicel this was placed, then some Avitene and FloSeal were also used to help control the bleeding. This was suctioned out at the termination of the case. There was no active bleeding in the gallbladder fossa. There were no pumpers noted. The clips were well placed in the duct and artery. The ports were removed and pneumoperitoneum was decompressed. The fascia was then closed with interrupted Vicryl sutures. The subQ tissues were closed with Vicryls and interrupted Vicryl was used to close the skin. Steri-Strips and benzoin were used to reinforce the incision. Sterile dressings were applied. The patient tolerated the procedure well without any complications, sent to post recovery for a period of observation and be sent to the floor for his care. I attest to the content of the Intraoperative Record and any orders documented therein. Any exceptions are noted below. FABIANO
--- NOTE | 2016-12-03 11:25 | Anesthesiology Progress Note ---
Anesthesia Post Op Note Date & Time Dec 03, 2016 at 11:25 Vital Signs Pain Intensity: 0 Vital Signs Past 12 Hours Date Time Temp Pulse Resp B/P (MAP) Pulse Ox O2 Delivery O2 Flow Rate FiO2 12/03/16 11:20 62 16 110/60 95 Nasal Cannula 2 12/03/16 11:10 62 16 113/67 96 Oxymask 5 12/03/16 11:00 75 16 123/64 96 Oxymask 10 12/03/16 10:50 68 16 114/63 98 Oxymask 10 12/03/16 10:40 36.7 63 16 118/60 98 Oxymask 10 12/03/16 07:49 37.3 75 16 115/62 (79) 93 Nasal Cannula 3 12/03/16 07:11 37.5 60 16 118/75 95 Room Air 2.0 12/03/16 05:15 37.5 60 16 118/75 (89) 95 Nasal Cannula 2.0 12/03/16 04:15 96 Nasal Cannula 2.0 12/03/16 04:00 70 96 Nasal Cannula 2.0 12/03/16 00:10 92 Room Air Notes Mental Status: alert / awake / arousable, participated in evaluation Pt Amnestic to Procedure: Yes Nausea / Vomiting: adequately controlled Pain: adequately controlled Airway Patency, RR, SpO2: stable & adequate BP & HR: stable & adequate Hydration State: stable & adequate Anesthetic Complications: no major complications apparent
[2016-12-03] MEDS ORDERED: MoRPHine SULFATE 4 MG/ML 1 ML CARP\\VIAL IV PRN (11:30)
[2016-12-03] MEDS: DOCUSATE SODIUM 100 MG CAP PO SCH ×2 (13:20→20:39)
[2016-12-03] MEDS: CITALOPRAM 40 MG TAB PO SCH (13:20)
[2016-12-03] MEDS: GABAPENTIN 300 MG CAP PO SCH ×3 (13:20→20:39)
[2016-12-03] MEDS: METOPROLOL SUCC 25MG EXT REL TAB PO SCH (13:22)
[2016-12-03] MEDS: TIMOLOL GFS 0.5% OPH SOLN 74 DROPS/5 ML BTL OPB SCH (13:23)
[2016-12-03] MEDS: TRAMADOL HCL 50 MG TAB PO PRN (20:38)
[2016-12-03] MEDS: SIMVASTATIN 40 MG TAB PO SCH (20:39)
[2016-12-03] MEDS ORDERED: INSULIN GLARGINE SOLOSTAR 100 UNITS/ML 3 ML PEN SC SCH ×2 (21:00→23:00)
[2016-12-03] MEDS ORDERED: PHARMACY GLYCEMIC MGMT CONSULT PRN (23:00)
[2016-12-03] MEDS: LATANOPROST 0.005% OP SOLN 2.5 ML BTL OPL SCH (23:04)
[2016-12-03] MEDS: OXYCODONE/ACETAMINOPHEN 5-325 TAB PO PRN (23:06)
--- NOTE | 2016-12-03 23:27 | Hospitalist Progress Note ---
Hospitalist Progress Note Date of Service Dec 03, 2016. Subjective Pt evaluation today including: conversation w/ patient Patient had his laparoscopic cholecystectomy today and is doing very well postoperatively. His only complaint right now is that he has to urinate and needs help getting out of bed. He denies chest pain or shortness of breath. Telemetry reviewed and shows paced rhythm in the 60s to 70s All Other Systems: Reviewed and Negative Objective Vital Signs Date Time Temp Pulse Resp B/P (MAP) Pulse Ox O2 Delivery O2 Flow Rate FiO2 12/03/16 18:54 37.2 67 20 125/77 (93) 96 Nasal Cannula 2.0 12/03/16 16:00 95 Nasal Cannula 2.0 12/03/16 15:31 36.3 67 19 91/58 (69) 95 Nasal Cannula 2.0 12/03/16 14:25 64 17 110/68 (82) 96 Nasal Cannula 2.0 12/03/16 13:25 36.4 75 16 106/69 (81) 93 Nasal Cannula 2.0 12/03/16 12:25 36.7 73 17 113/68 (83) 93 Nasal Cannula 2.0 12/03/16 12:00 97 Nasal Cannula 2.0 12/03/16 11:55 36.8 64 17 116/63 (80) 98 Nasal Cannula 2.0 12/03/16 11:30 37.5 68 16 111/58 95 Nasal Cannula 2 12/03/16 11:20 62 16 110/60 95 Nasal Cannula 2 12/03/16 11:10 62 16 113/67 96 Oxymask 5 12/03/16 11:00 75 16 123/64 96 Oxymask 10 12/03/16 10:50 68 16 114/63 98 Oxymask 10 12/03/16 10:40 36.7 63 16 118/60 98 Oxymask 10 12/03/16 07:49 37.3 75 16 115/62 (79) 93 Nasal Cannula 3 12/03/16 07:11 37.5 60 16 118/75 95 Room Air 2.0 12/03/16 05:15 37.5 60 16 118/75 (89) 95 Nasal Cannula 2.0 12/03/16 04:15 96 Nasal Cannula 2.0 12/03/16 04:00 70 96 Nasal Cannula 2.0 9/12/17 00:10 92 Room Air Physical Exam General Appearance: WD/WN, no apparent distress Eyes: normal inspection, sclerae normal ENT: hearing grossly normal Neck: trachea midline Respiratory/Chest: lungs clear, normal breath sounds, no respiratory distress, no accessory muscle use Cardiovascular: regular rate, rhythm, no edema, no gallop, no murmur Abdomen: normal bowel sounds, soft, + tenderness (around incision sites without guarding or rebound) Extremities: non-tender, normal inspection, no pedal edema, no calf tenderness Neurologic/Psychiatric: alert, normal mood/affect, oriented x 3 Skin: normal color, warm/dry, no rash, + pertinent finding (dressings on abdomen are clean dry and intact) Laboratory Results Last 24 Hours Test 12/03/16 05:47 12/03/16 07:11 12/03/16 11:07 12/03/16 16:06 White Blood Count 19.82 K/uL Red Blood Count 4.41 M/uL Hemoglobin 13.9 g/dL Hematocrit 38.4 % Mean Corpuscular Volume 87.1 fL Mean Corpuscular Hemoglobin 31.5 pg Mean Corpuscular Hemoglobin Concent 36.2 g/dl Platelet Count 88 K/uL Mean Platelet Volume 10.1 fL Neutrophils (%) (Auto) 82.2 % Lymphocytes (%) (Auto) 4.8 % Monocytes (%) (Auto) 12.4 % Eosinophils (%) (Auto) 0.1 % Basophils (%) (Auto) 0.1 % Neutrophils # (Auto) 16.31 K/uL Lymphocytes # (Auto) 0.96 K/uL Monocytes # (Auto) 2.46 K/uL Eosinophils # (Auto) 0.01 K/uL Basophils # (Auto) 0.01 K/uL RDW Standard Deviation 42.3 fL RDW Coefficient of Variation 13.2 % Immature Granulocyte % (Auto) 0.4 % Immature Granulocyte # (Auto) 0.07 K/uL Platelet Estimate DECREASED Sodium Level 136 mmol/L Potassium Level 3.8 mmol/L Chloride Level 103 mmol/L Carbon Dioxide Level 27 mmol/L Anion Gap 6.0 mmol/L Blood Urea Nitrogen 23 mg/dl Creatinine 1.70 mg/dl Est Creatinine Clear Calc Drug Dose 32.8 ml/min Estimated GFR () 44.1 Estimated GFR (Non- 38.1 BUN/Creatinine Ratio 13.4 Random Glucose 107 mg/dl Calcium Level 8.1 mg/dl Total Bilirubin 1.7 mg/dl Aspartate Amino Transf (AST/SGOT) 30 U/L Alanine Aminotransferase (ALT/SGPT) 23 U/L Alkaline Phosphatase 78 U/L Total Protein 6.3 gm/dl Albumin 2.7 gm/dl Globulin 3.6 gm/dl Albumin/Globulin Ratio 0.7 Bedside Glucose 120 mg/dl 114 mg/dl 254 mg/dl Test 12/03/16 16:08 12/03/16 19:59 Bedside Glucose 230 mg/dl 311 mg/dl Assessment and Plan 75 y/o male with a history of CAD, OR s/p stents and CABG, HTN, HLD, HOCM s/p myectomy, DM II, CKD stage III, depression and neuropathy who presents to the ED on 12/01 with abdominal pain. RUQ ultrasound shows moderate gallbladder debris and upper limit of normal gallbladder wall thickness; subsequent HIDA scan confirms acute on chronic cholecystitis. By the morning after admission, he became septic as evidenced by a leukocytosis and fever along with the source of infection. Acute on chronic cholecystitis, status post laparoscopic cholecystectomy, sepsis -expect that all will improve now that he's had his gallbladder out -continue Zosyn -follow CBC, LFTs -Appreciate general surgery management -Pain control -Advance diet as tolerated -Continue IV fluids for now until taking adequate by mouth -Leukocytosis and thrombocytopenia likely related to infection-follow CBC Elevated troponin likely mild demand ischemia in setting of sepsis and TERRA on CKD stage III--> troponin stable multiple times, no need to continue trending -no chest pain or evidence of CHF -restart ASA as soon as possible post-op -Continue telemetry monitoring CAD, h/o OR s/p stents and CABG, HTN, HLD, pacemaker in situ--stable -Continue Toprol 25 mg PO qd, and Zocor 40 mg PO qd -Hold ASA for surgery HOCM--pt w/recent echo 2 weeks ago at [facility] [place], records pending DM II-with hyperglycemia postoperatively- HgbA1c 7.8% -Hold glipizide, metformin and Invokana but can restart upon discharge -Pharmacy started Insulin basal and bolus here and will manage -Check BSGs q ac and qhs CKD stage III--with mild renal insufficiency with creatinine of 1.8 on admission -Baseline creatinine 1.5-1.7 -Creatinine improved to 1.7 Depression--stable -Continue Celexa 40 mg PO qd Neuropathy -Continue gabapentin 300 mg PO TID DVT prophylaxis -Hold chemical prophylaxis due to surgery -NIC mcfarland and LYUBOVs Code Status -Level I, FULL RESUSCITATION STATUS Dispo-likely to home in 1-2 days
[2016-12-04] VITALS (8 sets, daily range): BP systolic 109–122; BP diastolic 65–73; PULSE 60–73; TEMP 36.4–36.9; O2SAT 91–96
[2016-12-04] MEDS: INSULIN ASPART 100 UNITS/ML 3 ML PEN SC SCH ×6 (01:22→20:53)
[2016-12-04] MEDS: PIPERACILL/TAZOBAC IV 3.375 GM in DEXTROSE 5% 100ML IV SCH ×3 (04:56→20:57)
[2016-12-04] MEDS: SODIUM CHLORIDE 0.9% 1000ML 1,000 ML IV SCH ×2 (04:58→14:16)
[2016-12-04 06:03] LABS: HEMATOCRIT 33.5 % (42-52); MEAN CELL VOLUME 86.6 fL (80-100); MEAN CORPUSCULAR HEMOGLOBIN 30.7 pg (25-34); MEAN CORPUSCULAR HGB CONC 35.5 g/dl (32-36); RED BLOOD COUNT 3.87 M/uL (4.7-6.1); WHITE BLOOD COUNT 12.31 K/uL (4.8-10.8)
[2016-12-04 06:10] LABS: MEAN PLATELET VOLUME 10.4 fL (7.4-10.4); PLATELET COUNT 94 K/uL (130-400)
[2016-12-04 06:29] LABS: BUN/CREATININE RATIO 15.3 (10-20); CALCIUM 7.7 mg/dl (8.5-10.1); CREATININE 1.9 mg/dl (0.60-1.40); POTASSIUM 3.8 mmol/L (3.5-5.1)
[2016-12-04 06:31] LABS: ALB/GLOB RATIO 0.7 (0.9-2)
[2016-12-04 06:53] LABS: BASO % 0.1 %; BASO ABS # 0.01 K/uL (0-0.2); COMPLETE YES; EOS % 0.2 %; HYPERSEGMENTED POLYS 1+; IG% 0.3 %; LYMPH % 7.5 %; LYMPH ABS # 0.92 K/uL (1.2-3.4); MONO % 10.9 %
--- NOTE | 2016-12-04 07:44 | Surgery Progress Note ---
Surgery Progress Note Date of Service Dec 04, 2016. Subjective Post OP Day: 1 + feeling well, + flatus, + pain controlled, + diet (doing well), No bowel movement, No nausea, No vomiting Objective Vital Signs: Date Time Temp Pulse Resp B/P (MAP) Pulse Ox O2 Delivery O2 Flow Rate FiO2 12/04/16 04:00 Nasal Cannula 2.0 12/04/16 03:16 36.8 70 20 109/65 (80) 91 Nasal Cannula 2.0 12/04/16 00:10 96 Nasal Cannula 2.0 12/03/16 23:30 37.2 67 20 125/77 (93) 96 Nasal Cannula 2.0 12/03/16 23:15 36.6 75 18 147/81 (103) 96 Nasal Cannula 2.0 12/03/16 20:00 96 Nasal Cannula 2.0 12/03/16 18:54 37.2 67 20 125/77 (93) 96 Nasal Cannula 2.0 12/03/16 16:00 95 Nasal Cannula 2.0 12/03/16 15:31 36.3 67 19 91/58 (69) 95 Nasal Cannula 2.0 12/03/16 14:25 64 17 110/68 (82) 96 Nasal Cannula 2.0 12/03/16 13:25 36.4 75 16 106/69 (81) 93 Nasal Cannula 2.0 12/03/16 12:25 36.7 73 17 113/68 (83) 93 Nasal Cannula 2.0 12/03/16 12:00 97 Nasal Cannula 2.0 12/03/16 11:55 36.8 64 17 116/63 (80) 98 Nasal Cannula 2.0 12/03/16 11:30 37.5 68 16 111/58 95 Nasal Cannula 2 12/03/16 11:20 62 16 110/60 95 Nasal Cannula 2 12/03/16 11:10 62 16 113/67 96 Oxymask 5 12/03/16 11:00 75 16 123/64 96 Oxymask 10 12/03/16 10:50 68 16 114/63 98 Oxymask 10 12/03/16 10:40 36.7 63 16 118/60 98 Oxymask 10 12/03/16 07:49 37.3 75 16 115/62 (79) 93 Nasal Cannula 3 General Appearance: WD/WN, no apparent distress Head: normocephalic, atraumatic Neck: supple, trachea midline Respiratory/Chest: lungs clear Cardiovascular: regular rate, rhythm Abdomen: normal bowel sounds, soft, + distended, + tenderness Incision(s): clean, dry, intact Extremities: non-tender, no pedal edema Laboratory Results: Results Past 24 Hours Test 12/03/16 11:07 12/03/16 16:06 12/03/16 16:08 12/03/16 19:59 Range/Units Bedside Glucose 114 254 230 311 70-99 mg/dl Test 12/04/16 01:13 12/04/16 04:49 12/04/16 05:33 12/04/16 07:08 Range/Units Bedside Glucose 212 196 181 70-99 mg/dl White Blood Count 12.31 4.8-10.8 K/uL Red Blood Count 3.87 4.7-6.1 M/uL Hemoglobin 11.9 14.0-18.0 g/dL Hematocrit 33.5 42-52 % Mean Corpuscular Volume 86.6 80-100 fL Mean Corpuscular Hemoglobin 30.7 25-34 pg Mean Corpuscular Hemoglobin Concent 35.5 32-36 g/dl Platelet Count 94 130-400 K/uL Mean Platelet Volume 10.4 7.4-10.4 fL Neutrophils (%) (Auto) 81.0 % Lymphocytes (%) (Auto) 7.5 % Monocytes (%) (Auto) 10.9 % Eosinophils (%) (Auto) 0.2 % Basophils (%) (Auto) 0.1 % Neutrophils # (Auto) 9.98 1.4-6.5 K/uL Lymphocytes # (Auto) 0.92 1.2-3.4 K/uL Monocytes # (Auto) 1.34 0.11-0.59 K/uL Eosinophils # (Auto) 0.02 0-0.5 K/uL Basophils # (Auto) 0.01 0-0.2 K/uL RDW Standard Deviation 42.9 36.4-46.3 fL RDW Coefficient of Variation 13.5 11.5-14.5 % Immature Granulocyte % (Auto) 0.3 % Immature Granulocyte # (Auto) 0.04 0.00-0.02 K/uL Hypersegmented Polys 1+ Sodium Level 137 136-145 mmol/L Potassium Level 3.8 3.5-5.1 mmol/L Chloride Level 104 98-107 mmol/L Carbon Dioxide Level 27 21-32 mmol/L Anion Gap 6.0 3-11 mmol/L Blood Urea Nitrogen 29 7-18 mg/dl Creatinine 1.90 0.60-1.40 mg/dl Est Creatinine Clear Calc Drug Dose 29.4 ml/min Estimated GFR () 38.6 Estimated GFR (Non- 33.3 BUN/Creatinine Ratio 15.3 10-20 Random Glucose 171 70-99 mg/dl Calcium Level 7.7 8.5-10.1 mg/dl Total Bilirubin 1.2 0.2-1 mg/dl Aspartate Amino Transf (AST/SGOT) 65 15-37 U/L Alanine Aminotransferase (ALT/SGPT) 68 12-78 U/L Alkaline Phosphatase 71 45-117 U/L Total Protein 6.2 6.4-8.2 gm/dl Albumin 2.5 3.4-5.0 gm/dl Globulin 3.7 2.5-4.0 gm/dl Albumin/Globulin Ratio 0.7 0.9-2 Microbiology Results 12/03/16 Gram Stain, Received Pending 12/03/16 Wound Culture, Received Pending Assessment & Plan s/p lap rylee for gangrenous cholecystitis -would give 24 hours more IV antibiotics -OOB -good pain control -possibly home in AM if does well
[2016-12-04] MEDS: DOCUSATE SODIUM 100 MG CAP PO SCH ×2 (08:28→20:50)
[2016-12-04] MEDS: GABAPENTIN 300 MG CAP PO SCH ×3 (08:28→20:50)
[2016-12-04] MEDS: METOPROLOL SUCC 25MG EXT REL TAB PO SCH (08:28)
[2016-12-04] MEDS: CITALOPRAM 40 MG TAB PO SCH (08:28)
[2016-12-04] MEDS: TIMOLOL GFS 0.5% OPH SOLN 74 DROPS/5 ML BTL OPB SCH (08:32)
[2016-12-04] MEDS ORDERED: INSULIN GLARGINE SOLOSTAR 100 UNITS/ML 3 ML PEN SC SCH (09:00)
--- NOTE | 2016-12-04 09:25 | CARDIOLOGY CONSULTATION ---
DATE OF CONSULTATION: 12/04/2016 REQUESTING PHYSICIAN: Leif Petty DO [employer] SUPERVISOR: Anthony Helton DO, [facility]. REASON FOR CONSULTATION: Preoperative evaluation prior to urgent laparoscopic cholecystectomy. Dear Dr. Petty: Thank you for requesting cardiology consultation on Ze with regards to his known cardiac history and preoperative evaluation. Although the consultation was dictated on 12/04/2016, I did review his medical records before he went to the operating room yesterday. When I came to see the patient, he had already left to the OR. He is followed by Dr. Praful Galloway at [facility] for hypertrophic cardiomyopathy and has a complex past medical history. Today, he was evaluated. He is postoperative day #1 status post cholecystectomy with a gangrenous gallbladder. He feels better. He denies any chest pain or chest pressure. He denies any shortness of breath at rest. He does note normally when he walks on the flat, he does not have any shortness of breath, but if there is an incline, he does have dyspnea. He denies any lightheadedness or dizziness, presyncope, or syncope. He has no lower extremity edema. He still has some abdominal discomfort and he notes it is worse when I had him take deep breaths today. He is eating in his room. He notes that his appetite is returning. He is sitting in a chair and he is looking forward to walking in the hallway. He does have the hiccups. He denies a cough. He denies any bleeding or bruising, dark stools or black stools prior to his hospitalization. The rest of review of systems is otherwise negative. FAMILY HISTORY: Noncontributory. SOCIAL HISTORY: Lifetime nonsmoker. He socially drinks alcohol. He is single. He lives alone. He is retired. ALLERGIES: ATENOLOL, ERYTHROMYCIN, FENTANYL, IBUPROFEN, NAPROXEN, SULFA, AND MIDAZOLAM. MEDICATIONS: Reviewed in electronic medical record. PAST MEDICAL HISTORY: 1. 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 2. Hypertrophic cardiomyopathy, status post myomectomy at [facility] in 2014. 3. Preoperative cardiac catheterization at [facility], which revealed a total occlusion of the RCA and a patent vein graft to the right coronary artery. He had mild disease in the LAD and circumflex territory. 4. Echocardiogram in October 2016 with normal left ventricular systolic function. There was no evidence of a mid cavitary gradient or left ventricular outflow tract gradient at rest or with Valsalva. 5. Dual chamber pacemaker. PHYSICAL EXAMINATION: GENERAL: He is awake, alert, and oriented x3. He is in no acute distress. He is a well-appearing male. VITAL SIGNS: His heart rate is 73, blood pressure is 122/73, respirations are 18, and sats 94% on 2 liters. HEENNT: 2+ carotid upstrokes. No evidence of carotid bruits. Jugular venous pressure appeared normal. Sclerae is anicteric. Hearing is normal. LUNGS: Clear to auscultation bilaterally with decreased breath sounds in the bases bilaterally. No rales, rhonchi or wheezing. HEART: Regular rate and rhythm. No appreciable murmurs, rubs or gallops. ABDOMEN: Soft. Diffusely tender. Decreased bowel sounds. Nondistended. EXTREMITIES: No clubbing, cyanosis or edema. PSYCHIATRIC: His affect appeared appropriate. LABORATORY STUDIES: This morning, white count of 12.31 down from 19.82. His platelet count is 94,000. His BUN is 29 with a creatinine of 1.9. His admission BUN and creatinine was 36 and 1.8. History troponin was minimally elevated with a peak troponin of 0.135. EKG reveals an AV paced rhythm. IMPRESSION: 1. Postoperative day #1 status post cholecystectomy for gangrenous gallbladder and acute on chronic cholecystitis. 2. History of hypertrophic cardiomyopathy, status post myomectomy at [facility] in 2014. 3. Coronary artery disease with known occlusion of the distal RCA and a patent vein graft to the RCA from 2015 with mild LAD and circumflex disease. 4. Recent echocardiogram with preserved biventricular size and function and no evidence of a mid cavitary or left ventricular outflow tract gradient. 5. Chronic diastolic dysfunction secondary to his hypertrophic cardiomyopathy. 6. Dual chamber pacemaker. As I discussed with Ze, I would stop his IV fluids and allow him to equilibrate on his own with regards to his volume status. He does have decreased breath sounds in the bases. If he were to have any shortness of breath, I would give him 20 mg of furosemide. He should restart his outpatient AV che blockers. He is currently on Toprol 25 mg daily and his heart rate and blood pressure look very good. He believes he was on verapamil as an outpatient, although that is not on his outpatient medication record and we will confirm that with his outpatient [place] chart. That can be started upon discharge. Overall, he seems to be doing well. I encouraged him to ambulate as he can. Thank you for allowing us to participate in his care.
--- NOTE | 2016-12-04 10:18 | Anesthesiology Progress Note ---
Anesthesia Post Op Note Date & Time Dec 04, 2016 at 10:17 Vital Signs Pain Intensity: 5.0 Vital Signs Past 12 Hours Date Time Temp Pulse Resp B/P (MAP) Pulse Ox O2 Delivery O2 Flow Rate FiO2 12/04/16 08:10 Nasal Cannula 2.0 12/04/16 07:30 36.7 73 18 122/73 (89) 94 Nasal Cannula 2.0 12/04/16 04:00 Nasal Cannula 2.0 12/04/16 03:16 36.8 70 20 109/65 (80) 91 Nasal Cannula 2.0 12/04/16 00:10 96 Nasal Cannula 2.0 12/03/16 23:30 37.2 67 20 125/77 (93) 96 Nasal Cannula 2.0 12/03/16 23:15 36.6 75 18 147/81 (103) 96 Nasal Cannula 2.0 Notes Mental Status: alert / awake / arousable, participated in evaluation Pt Amnestic to Procedure: Yes Nausea / Vomiting: adequately controlled Pain: adequately controlled Airway Patency, RR, SpO2: stable & adequate BP & HR: stable & adequate Hydration State: stable & adequate Anesthetic Complications: no major complications apparent patient c/o hiccups since surgery and reports it is from versed. PCP aware and is to order treatment if they persist.
--- NOTE | 2016-12-04 11:26 | Pharmacy Progress Note ---
Glycemic Control Intl Consult Date of Service Dec 04, 2016. Scope Glycemic Pharmacist consulted by Dr Ron on 12/03/16 for glycemic control and to write orders per [facility] inpatient glycemic control protocol Objective Weight (Kilograms): 71.300 Accuchecks BSG (last 24hrs): Test 12/03/16 16:06 12/03/16 16:08 12/03/16 19:59 12/04/16 01:13 Bedside Glucose 254 mg/dl (70-99) 230 mg/dl (70-99) 311 mg/dl (70-99) 212 mg/dl (70-99) Test 12/04/16 04:49 12/04/16 05:33 12/04/16 07:08 Bedside Glucose 196 mg/dl (70-99) 181 mg/dl (70-99) Random Glucose 171 mg/dl (70-99) Laboratory Data (last 24hrs) Test 12/04/16 05:33 Anion Gap 6.0 mmol/L BUN/Creatinine Ratio 15.3 Blood Urea Nitrogen 29 mg/dl Creatinine 1.90 mg/dl Potassium Level 3.8 mmol/L Sodium Level 137 mmol/L White Blood Count 12.31 K/uL Red Blood Count 3.87 M/uL Hemoglobin 11.9 g/dL Hematocrit 33.5 % Mean Corpuscular Volume 86.6 fL Mean Corpuscular Hemoglobin 30.7 pg Mean Corpuscular Hemoglobin Concent 35.5 g/dl Platelet Count 94 K/uL Mean Platelet Volume 10.4 fL Neutrophils (%) (Auto) 81.0 % Lymphocytes (%) (Auto) 7.5 % Monocytes (%) (Auto) 10.9 % Eosinophils (%) (Auto) 0.2 % Basophils (%) (Auto) 0.1 % Neutrophils # (Auto) 9.98 K/uL Lymphocytes # (Auto) 0.92 K/uL Monocytes # (Auto) 1.34 K/uL Eosinophils # (Auto) 0.02 K/uL Basophils # (Auto) 0.01 K/uL HbA1c Test 12/02/16 12:31 Hemoglobin A1c 7.8 % (4.5-5.6) H Recent Pertinent Medications Outpatient Anti-diabetic Regimen: * Lantus 25 units qHS plus Glipizide ER 5 mg qAM The patient is currently receiving: * Basal insulin: Lantus 12 units every 24 hours at bedtime * Correctional Insulin: Novolog Correction per scale ACHS Goal Range: Low 100 mg/dL - High 150 mg/dL Correction Factor: 35 mg/dL/unit * Prandial insulin: Per carb ratio of 1 unit per 11 grams CHO consumed Risk Factors for Insulin Resistance: * Steroids: dexamethasone 4 mg IV in OR * Infection: s/p lap rylee on Zosyn * IVF: NS @ 100 cc/hr * Recent Surgery POD 1 for lap rylee * Diet: type 2 diabetic diet Assessment & Plan ASSESSMENT: * ADA & AACE recommend a goal blood sugar range 140-180 mg/dl for the majority of critically ill & non-critically ill patients. However, more stringent targets may be selected in individual cases. Will utilize more stringent goal of 100-150 mg/dl based on patient age & comorbidities. Additionally, tighter glycemic control is warranted to facilitate wound healing. * Mr Mansfield is a 75 y/o M with a PMH of CAD with IA s/p stents and CABG and CKD stage III who was admitted on 12/01/16 for abdominal pain. Yesterday, he underwent a lap cholecystectomy. The patient has received reduced doses of Lantus throughout his stay. He also received a dose of dexamethasone in the OR. * Yesterday, the patient's blood sugars ranged from 114-311 mg/dL by the evening. He received 29 units of insulin (12 of basal and 15 of bolus insulin). This morning's fasting blood sugar was 181 mg/dL. Provided sliding scale for Lantus as uncertain how the patient will respond to steroids. Extra 5 units of Lantus ordered for this morning. * In terms of post-prandial blood sugars, they jacinto throughout the day yesterday ; however the patient corrected well overnight. Will continue same parameters but may tighten later this afternoon. PLAN FOR INPATIENT GLYCEMIC CONTROL: * Basal insulin with LANTUS 5 units SQ x 1 then 10-20 units SQ BID (Lantus 10 units if blood sugar less than 120 mg/dL; Lantus 15 units if blood sugar 120- 180 mg/dL; Lantus 20 units if blood sugar greater than 180 mg/dL) * Correctional Insulin with NOVOLOG per scale ACHS or Q6hrs while NPO * Goal Range: Low 100 mg/dL - High 150 mg/dL * Correction Factor: 35 mg/dL/unit * Nutritional / Prandial insulin per carb ratio of 1 unit per 11 grams CHO consumed Recommendations for discharge * Patient's blood sugars appear reasonably well controlled as an outpatient ( goal 6.6-7.5 per Elements of Diabetes Care Scoring Scale from the ADA)- recommend * titrating Lantus as appropriate * discontinuing glipizide as may increase risk of hypoglycemia, especially in renal dysfunction Thank you.
[2016-12-04] MEDS ORDERED: POLYETHYLENE (MIRALAX) 17 GM PACK PO ONE (17:45)
[2016-12-04] MEDS ORDERED: NURSING VERBAL MED ORDER ONE (17:45)
[2016-12-04] MEDS: OXYCODONE/ACETAMINOPHEN 5-325 TAB PO PRN (19:29)
[2016-12-04] MEDS: DICLOFENAC SOD 1% GEL 100 GM TUBE EXT PRN (19:30)
[2016-12-04] MEDS: LATANOPROST 0.005% OP SOLN 2.5 ML BTL OPL SCH (20:49)
[2016-12-04] MEDS: SIMVASTATIN 40 MG TAB PO SCH (20:52)
[2016-12-04] MEDS: INSULIN GLARGINE SOLOSTAR 100 UNITS/ML 3 ML PEN SC SCH (20:56)
[2016-12-04] MEDS ORDERED: HYDROCHLOROTHIAZIDE 25 MG TAB PO ONE (21:55)
[2016-12-05] VITALS (7 sets, daily range): BP systolic 105–138; BP diastolic 61–72; PULSE 67–85; TEMP 36.3–36.8; O2SAT 91–95
--- NOTE | 2016-12-05 00:27 | Hospitalist Progress Note ---
Hospitalist Progress Note Date of Service Dec 04, 2016. Subjective Pt evaluation today including: conversation w/ patient Pt is feeling better, has some abd pressure, but is passing flatus, no BM yet. He is making a lot of urine. Denies CP. Does report some SOB worse with lying flat. Afebrile and WBC trending downward All Other Systems: Reviewed and Negative Objective Vital Signs Date Time Temp Pulse Resp B/P (MAP) Pulse Ox O2 Delivery O2 Flow Rate FiO2 12/05/16 00:18 36.7 85 18 138/72 (94) 92 2.0 12/04/16 20:25 36.4 60 18 121/72 (88) 96 Nasal Cannula 2.0 12/04/16 20:00 92 Nasal Cannula 1.0 12/04/16 16:00 95 Nasal Cannula 1.0 12/04/16 15:05 36.9 62 18 112/68 (83) 95 Nasal Cannula 2.0 12/04/16 12:30 Nasal Cannula 2.0 12/04/16 11:33 36.7 64 18 112/69 (83) 91 Room Air 12/04/16 08:10 Nasal Cannula 2.0 12/04/16 07:30 36.7 73 18 122/73 (89) 94 Nasal Cannula 2.0 12/04/16 04:00 Nasal Cannula 2.0 12/04/16 03:16 36.8 70 20 109/65 (80) 91 Nasal Cannula 2.0 Physical Exam General Appearance: WD/WN, no apparent distress Eyes: normal inspection, sclerae normal ENT: hearing grossly normal Neck: trachea midline Respiratory/Chest: no respiratory distress, no accessory muscle use, + crackles (at bases bilat) Cardiovascular: regular rate, rhythm, no edema, + systolic murmur (short mid systolic 2/6 murmur) Abdomen: soft, + pertinent finding (hypoactive BS, mild TTP around incision sites) Extremities: non-tender, normal inspection, no pedal edema Neurologic/Psychiatric: alert, normal mood/affect, oriented x 3 Skin: normal color, warm/dry, no rash Laboratory Results Last 24 Hours Test 12/04/16 01:13 12/04/16 04:49 12/04/16 05:33 12/04/16 07:08 Bedside Glucose 212 mg/dl 196 mg/dl 181 mg/dl White Blood Count 12.31 K/uL Red Blood Count 3.87 M/uL Hemoglobin 11.9 g/dL Hematocrit 33.5 % Mean Corpuscular Volume 86.6 fL Mean Corpuscular Hemoglobin 30.7 pg Mean Corpuscular Hemoglobin Concent 35.5 g/dl Platelet Count 94 K/uL Mean Platelet Volume 10.4 fL Neutrophils (%) (Auto) 81.0 % Lymphocytes (%) (Auto) 7.5 % Monocytes (%) (Auto) 10.9 % Eosinophils (%) (Auto) 0.2 % Basophils (%) (Auto) 0.1 % Neutrophils # (Auto) 9.98 K/uL Lymphocytes # (Auto) 0.92 K/uL Monocytes # (Auto) 1.34 K/uL Eosinophils # (Auto) 0.02 K/uL Basophils # (Auto) 0.01 K/uL RDW Standard Deviation 42.9 fL RDW Coefficient of Variation 13.5 % Immature Granulocyte % (Auto) 0.3 % Immature Granulocyte # (Auto) 0.04 K/uL Hypersegmented Polys 1+ Sodium Level 137 mmol/L Potassium Level 3.8 mmol/L Chloride Level 104 mmol/L Carbon Dioxide Level 27 mmol/L Anion Gap 6.0 mmol/L Blood Urea Nitrogen 29 mg/dl Creatinine 1.90 mg/dl Est Creatinine Clear Calc Drug Dose 29.4 ml/min Estimated GFR () 38.6 Estimated GFR (Non- 33.3 BUN/Creatinine Ratio 15.3 Random Glucose 171 mg/dl Calcium Level 7.7 mg/dl Total Bilirubin 1.2 mg/dl Aspartate Amino Transf (AST/SGOT) 65 U/L Alanine Aminotransferase (ALT/SGPT) 68 U/L Alkaline Phosphatase 71 U/L Total Protein 6.2 gm/dl Albumin 2.5 gm/dl Globulin 3.7 gm/dl Albumin/Globulin Ratio 0.7 Test 12/04/16 11:52 12/04/16 17:36 12/04/16 20:52 Bedside Glucose 170 mg/dl 106 mg/dl 120 mg/dl Assessment and Plan 75 y/o male with a history of CAD, PR s/p stents and CABG, HTN, HLD, HOCM s/p myomectomy, chronic diastolic CHF, DM II, CKD stage III, depression and neuropathy who presents to the ED on 12/01 with abdominal pain. RUQ ultrasound shows moderate gallbladder debris and upper limit of normal gallbladder wall thickness; subsequent HIDA scan confirms acute on chronic cholecystitis. By the morning after admission, he became septic as evidenced by a leukocytosis and fever along with the source of infection. Acute on chronic cholecystitis, POD #1 status post laparoscopic cholecystectomy , sepsis-continues to improve now that he's had his gallbladder out -continue Zosyn x 1 more day as per Surgery -follow CBC, LFTs -Appreciate general surgery management -Pain control -d/c'd IV fluids -Leukocytosis and thrombocytopenia likely related to infection and are improving -pathology showed gangrenous GB Elevated troponin likely mild demand ischemia in setting of sepsis and TERRA on CKD stage III--> troponin stable multiple times, no need to continue trending -no chest pain -restart ASA tomorrow AM -Continue telemetry monitoring CAD, h/o PR s/p stents and CABG, HTN, HLD, pacemaker in situ, acute on chronic diastolic CHF--worsening pulm edema on exam, continues with acute respiratory insufficiency requiring O2 - restart HCTZ and give an extra dose tonight--> pt unsure if he has had lasix previously and reports SOB/wheezing with sulfa allergy -Continue Toprol 25 mg PO qd, and Zocor 40 mg PO qd -restart ASA HOCM--pt w/recent echo 2 weeks ago at [facility], chronic diastolic dysfunction -Appreciate Cardiology input DM II-with hyperglycemia postoperatively- HgbA1c 7.8%. Hyperglycemia improved now -Hold glipizide, metformin and Invokana but can restart upon discharge -Pharmacy started Insulin basal and bolus here and will manage -Check BSGs q ac and qhs CKD stage III--with mild renal insufficiency with creatinine of 1.8 on admission --> up to 1.9 today -Baseline creatinine 1.5-1.7 -renally dose meds, avoid nephrotoxins Depression--stable -Continue Celexa 40 mg PO qd Neuropathy -Continue gabapentin 300 mg PO TID DVT prophylaxis -Hold chemical prophylaxis due to surgery -NIC mcfarland and LYUBOVs Code Status -Level I, FULL RESUSCITATION STATUS Dispo-likely to home in 1-2 days
[2016-12-05] MEDS ORDERED: INSULIN ASPART 100 UNITS/ML 3 ML PEN SC SCH (02:00)
[2016-12-05] MEDS: PIPERACILL/TAZOBAC IV 3.375 GM in DEXTROSE 5% 100ML IV SCH ×2 (05:57→14:00)
[2016-12-05 06:53] LABS: HEMATOCRIT 28.4 % (42-52); MEAN CELL VOLUME 85.5 fL (80-100); MEAN CORPUSCULAR HEMOGLOBIN 30.4 pg (25-34); MEAN CORPUSCULAR HGB CONC 35.6 g/dl (32-36); RED BLOOD COUNT 3.32 M/uL (4.7-6.1); WHITE BLOOD COUNT 7.03 K/uL (4.8-10.8)
[2016-12-05 07:00] LABS: MEAN PLATELET VOLUME 10.1 fL (7.4-10.4); PLATELET COUNT 97 K/uL (130-400)
--- NOTE | 2016-12-05 07:25 | Surgery Progress Note ---
Surgery Progress Note Date of Service Dec 05, 2016. Subjective Post OP Day: 2 + feeling well, + flatus, + pain controlled, No nausea, No vomiting Objective Vital Signs: Date Time Temp Pulse Resp B/P (MAP) Pulse Ox O2 Delivery O2 Flow Rate FiO2 12/05/16 04:51 36.8 67 20 114/64 (81) 94 2.0 12/05/16 04:00 Nasal Cannula 2.0 12/05/16 00:18 36.7 85 18 138/72 (94) 92 2.0 12/05/16 00:00 Nasal Cannula 2.0 12/04/16 20:25 36.4 60 18 121/72 (88) 96 Nasal Cannula 2.0 12/04/16 20:00 92 Nasal Cannula 1.0 12/04/16 16:00 95 Nasal Cannula 1.0 12/04/16 15:05 36.9 62 18 112/68 (83) 95 Nasal Cannula 2.0 12/04/16 12:30 Nasal Cannula 2.0 12/04/16 11:33 36.7 64 18 112/69 (83) 91 Room Air 12/04/16 08:10 Nasal Cannula 2.0 12/04/16 07:30 36.7 73 18 122/73 (89) 94 Nasal Cannula 2.0 General Appearance: WD/WN, no apparent distress Head: normocephalic, atraumatic Abdomen: normal bowel sounds, non distended, soft, + tenderness Incision(s): clean, dry, intact Extremities: non-tender, no pedal edema Laboratory Results: Results Past 24 Hours Test 12/04/16 11:52 12/04/16 17:36 12/04/16 20:52 12/05/16 01:53 Range/Units Bedside Glucose 170 106 120 144 70-99 mg/dl Test 12/05/16 06:19 Range/Units White Blood Count 7.03 4.8-10.8 K/uL Red Blood Count 3.32 4.7-6.1 M/uL Hemoglobin 10.1 14.0-18.0 g/dL Hematocrit 28.4 42-52 % Mean Corpuscular Volume 85.5 80-100 fL Mean Corpuscular Hemoglobin 30.4 25-34 pg Mean Corpuscular Hemoglobin Concent 35.6 32-36 g/dl Platelet Count 97 130-400 K/uL Mean Platelet Volume 10.1 7.4-10.4 fL RDW Standard Deviation 42.5 36.4-46.3 fL RDW Coefficient of Variation 13.5 11.5-14.5 % Assessment & Plan s/p lap rylee for gangrenous cholecystitis -OK to discharge -consider iron supplements s/p lap rylee for gangrenous cholecystitis -would give 24 hours more IV antibiotics -OOB -good pain control -possibly home in AM if does well
[2016-12-05 07:28] LABS: ALB/GLOB RATIO 0.6 (0.9-2); BUN/CREATININE RATIO 17.1 (10-20); CALCIUM 8.2 mg/dl (8.5-10.1); CREATININE 1.7 mg/dl (0.60-1.40); POTASSIUM 3.3 mmol/L (3.5-5.1)
[2016-12-05 07:40] LABS: BASO % 0.3 %; BASO ABS # 0.02 K/uL (0-0.2); COMPLETE YES; EOS % 3.8 %; IG% 0.1 %; LYMPH % 20.6 %; LYMPH ABS # 1.45 K/uL (1.2-3.4); NEUT % 67.2 %
[2016-12-05] MEDS: TIMOLOL GFS 0.5% OPH SOLN 74 DROPS/5 ML BTL OPB SCH (08:19)
[2016-12-05] MEDS: METOPROLOL SUCC 25MG EXT REL TAB PO SCH (08:19)
[2016-12-05] MEDS: DOCUSATE SODIUM 100 MG CAP PO SCH (08:19)
[2016-12-05] MEDS: GABAPENTIN 300 MG CAP PO SCH ×2 (08:19→14:00)
[2016-12-05] MEDS: CITALOPRAM 40 MG TAB PO SCH (08:19)
[2016-12-05] MEDS: INSULIN ASPART 100 UNITS/ML 3 ML PEN SC SCH ×2 (08:24→12:38)
[2016-12-05] MEDS: INSULIN GLARGINE SOLOSTAR 100 UNITS/ML 3 ML PEN SC SCH (08:25)
[2016-12-05] MEDS ORDERED: FUROSEMIDE INJ 20 MG in SYRINGE 0 ML IV ONE (08:45)
[2016-12-05] MEDS ORDERED: HYDROCHLOROTHIAZIDE 25 MG TAB PO SCH (09:00)
[2016-12-05] MEDS ORDERED: ASPIRIN 81 MG ECTAB PO SCH (09:00)
[2016-12-05] MEDS ORDERED: POTASSIUM CHLORIDE 10 MEQ TABCR PO SCH (09:00)
--- NOTE | 2016-12-05 09:52 | Cardiology Follow-Up ---
Subjective General Date of Service: Dec 05, 2016. Pt evaluation today including: conversation w/ patient, chart review, lab review, review of studies History of Present Illness The patient is a 75 year old male Allergies Coded Allergies: Atenolol (Verified Allergy, Unknown, UNKNOWN, 12/01/16) Erythromycin (Verified Allergy, Unknown, 12/01/16) PT DENIES ALLERGY TO THIS Fentanyl (Verified Allergy, Unknown, HICCUPS, 12/01/16) Ibuprofen (Verified Allergy, Unknown, STOMACH EROSION, 12/01/16) Naproxen (Unverified Allergy, Unknown, STOMACH EROSION, 12/01/16) Sulfa Drugs (Unverified Allergy, Unknown, SHORTNESS OF BREATH, 12/01/16) Midazolam (Verified Adverse Reaction, Mild, HICCUPS, 12/01/16) Social History Smoking Status: Never Smoker Hx Tobacco Use In Past Year?: No Hx Alcohol Use - Type And Amou: No Hx Substance Use - Type And Am: No Problem List Medical Problems: (1) Abdominal pain Status: Acute (2) Dehydration Status: Acute (3) Elevated troponin Status: Acute Review of Systems Respiratory: No cough, No shortness of breath, No dyspnea at rest Cardiac: No chest pain, No edema, No palpitations Additional ROS Details: abd distended Physical Exam Vital Signs Last Vital Signs Documentation Date Time Temp Pulse Resp B/P (MAP) Pulse Ox O2 Delivery O2 Flow Rate FiO2 12/05/16 08:10 Room Air 12/05/16 07:33 36.3 79 16 105/61 (76) 91 2.0 Physical Exam Constitutional: General Apperance: heathly-appearing Level of Distress: NAD Lungs: Respiratory effort: no dyspnea Auscultation: breath sounds normal, no wheezing, no rales/crackles, no rhonchi Cardiovascular: Heart Auscultation: RRR, II/ IRMA Abdomen: Bowel Sounds: diminished Inspection & Palpation: soft, distended Extremities: no edema Assessment and Plan Assessment and Plan IMPRESSION: 1. Postoperative day #2 status post cholecystectomy for gangrenous gallbladder and acute on chronic cholecystitis. 2. History of hypertrophic cardiomyopathy, status post myomectomy at [facility] in 2014. 3. Coronary artery disease with known occlusion of the distal RCA and a patent vein graft to the RCA from 2015 with mild LAD and circumflex disease. 4. Recent echocardiogram with preserved biventricular size and function and no evidence of a mid cavitary or left ventricular outflow tract gradient. 5. Chronic diastolic dysfunction secondary to his hypertrophic cardiomyopathy. 6. Dual chamber pacemaker. Home meds are Toprol 25mg daily and HCTZ 12.5mg daily--[place] in [facility] weight up 3 KG's agree with low dose lasix today otherwise doing well--no angina ambulate replete K+ d/w primary service Laboratory Results Last 24 Hours Test 12/04/16 11:52 12/04/16 17:36 12/04/16 20:52 12/05/16 01:53 Bedside Glucose 170 mg/dl 106 mg/dl 120 mg/dl 144 mg/dl Test 12/05/16 06:19 12/05/16 07:52 White Blood Count 7.03 K/uL Red Blood Count 3.32 M/uL Hemoglobin 10.1 g/dL Hematocrit 28.4 % Mean Corpuscular Volume 85.5 fL Mean Corpuscular Hemoglobin 30.4 pg Mean Corpuscular Hemoglobin Concent 35.6 g/dl Platelet Count 97 K/uL Mean Platelet Volume 10.1 fL Neutrophils (%) (Auto) 67.2 % Lymphocytes (%) (Auto) 20.6 % Monocytes (%) (Auto) 8.0 % Eosinophils (%) (Auto) 3.8 % Basophils (%) (Auto) 0.3 % Neutrophils # (Auto) 4.72 K/uL Lymphocytes # (Auto) 1.45 K/uL Monocytes # (Auto) 0.56 K/uL Eosinophils # (Auto) 0.27 K/uL Basophils # (Auto) 0.02 K/uL RDW Standard Deviation 42.5 fL RDW Coefficient of Variation 13.5 % Immature Granulocyte % (Auto) 0.1 % Immature Granulocyte # (Auto) 0.01 K/uL Sodium Level 139 mmol/L Potassium Level 3.3 mmol/L Chloride Level 106 mmol/L Carbon Dioxide Level 27 mmol/L Anion Gap 6.0 mmol/L Blood Urea Nitrogen 29 mg/dl Creatinine 1.70 mg/dl Est Creatinine Clear Calc Drug Dose 32.8 ml/min Estimated GFR () 44.1 Estimated GFR (Non- 38.1 BUN/Creatinine Ratio 17.1 Random Glucose 83 mg/dl Calcium Level 8.2 mg/dl Total Bilirubin 0.8 mg/dl Aspartate Amino Transf (AST/SGOT) 41 U/L Alanine Aminotransferase (ALT/SGPT) 54 U/L Alkaline Phosphatase 65 U/L Total Protein 5.9 gm/dl Albumin 2.3 gm/dl Globulin 3.6 gm/dl Albumin/Globulin Ratio 0.6 Bedside Glucose 78 mg/dl
[2016-12-05] MEDS ORDERED: INSDGIPEN SQ (10:24)
[2016-12-05] MEDS ORDERED: ACET-1047 PO (10:24)
[2016-12-05] MEDS ORDERED: CLC100 PO (10:24)
--- NOTE | 2016-12-06 00:06 | Discharge Summary ---
Discharge Summary Date of Service Dec 05, 2016. Discharge Summary Admission Date: Dec 01, 2016 at 17:10 Discharge Date: Dec 05, 2016 Discharge Disposition: Home ([facility]) Principal Diagnosis: Acute on chronic cholecystitis, Biliary sepsis Problems/Secondary Diagnoses: S/p laparoscopic cholecystitis CAD with h/o [place] s/p stents and CABG HTN HLD HOCM s/p myomectomy chronic diastolic CHF DM II with post-operative hyperglycemia CKD stage III depression neuropathy Leukocytosis Thrombocytopenia Elevated troponin secondary to demand ischemia in setting of sepsis and TERRA on CKD stage III Pacemaker in situ Acute on chronic diastolic CHF Acute respiratory insufficiency Immunizations: Have You Had Influenza Vaccine: Yes History of Tetanus Vaccine?: Yes History of Pneumococcal: Yes History of Hepatitis B Vaccine: No Procedures: HIDA scan RUQ US Laparoscopic cholecystectomy Consultations: General Surgery Cardiology Medication Reconciliation New Medications: Acetaminophen (Mapap) 325 Mg Tab 650 MG PO Q4H PRN for Pain or Fever for 30 Days Docusate Sodium (Docusate Sodium) 100 Mg Cap 100 MG PO BID for 30 Days, #60 CAP Changed Medications: Insulin Glargine (Lantus Solostar) 100 Unit/Ml Inj 15 UNITS SQ HS for 30 Days (Changed from: 25 UNITS; Removed Quantity) take 15 units ONLY on evening of 12/05, but then revert to taking 25 units at bedtime on 12/06. Continued Medications: Aspirin (Aspir-81) 81 Mg Tab 1 TAB PO HS for 90 Days, TAB 3 Refills () 1 TABLET PO QAM Citalopram Hydrobromide (Celexa) 40 Mg Tab 40 MG PO DAILY, TAB Fish Oil ([place]-3) 1 Ea Cap 2 CAPSULES PO QAM, 0 Refills Gabapentin (Gabapentin) 300 Mg Cap 300 MG PO TID Glipizide (Glipizide Er) 5 Mg Tab 1 TAB PO QAM, TAB Hydrochlorothiazide (Hydrochlorothiazide) 12.5 Mg Tab 12.5 MG PO QAM Latanoprost (Latanoprost) 37 Drops/2.5 Ml Soln 1 DROP OPL HS, #9 Metoprolol Succinate (Toprol Xl) 25 Mg Tab 25 MG PO QAM Multivitamin (Multivitamin) Tab 1 TABLET PO QAM Simvastatin (Zocor) 40 Mg Tab 40 MG PO HS Timolol Maleate (Ophth) (Timoptic-Xe 0.5% Oph) 0.5 % Ghazala 1 DROPS OPB DAILY, ML 3 Refills Tramadol HCl (Tramadol HCl) 50 Mg Tab 1 TAB PO Q4-6H PRN for Pain Discontinued Medications: Canagliflozin (Invokana) 100 Mg Tab 100 MG PO QAM, #30 Discharge Exam Pt feeling well, passing flatus bu no BM yet, pain controlled. No CP, no SOB, is now off O2, POx with ambulation in [place] was 92%. Anxious for discharge to home Physical Exam General Appearance: WD/WN, no apparent distress Eyes: normal inspection, sclerae normal ENT: hearing grossly normal Neck: trachea midline Respiratory/Chest: no respiratory distress, no accessory muscle use, no crackles Cardiovascular: regular rate, rhythm, no edema, + systolic murmur (short mid systolic 2/6 murmur) Abdomen: soft, + pertinent finding (hypoactive BS, mild TTP around incision sites) Extremities: non-tender, normal inspection, no pedal edema Neurologic/Psychiatric: alert, normal mood/affect, oriented x 3 Skin: normal color, warm/dry, no rash Review of Systems: Constitutional: No fever Eyes: No problem reported ENT: No problem reported Respiratory: No cough, No shortness of breath Cardiovascular: No chest pain Abdomen: + pain (minimal), No nausea, No vomiting Genitourinary - Male: No problem reported Neurologic: No problem reported Psychiatric: No problem reported Endocrine: No problem reported Hematologic / Lymphatic: No problem reported Integumentary: No problem reported Hospital Course 75 y/o male with a history of CAD, [place] s/p stents and CABG, HTN, HLD, HOCM s/p myomectomy, chronic diastolic CHF, DM II, CKD stage III, depression and neuropathy who presents to the ED on 12/01 with abdominal pain. RUQ ultrasound shows moderate gallbladder debris and upper limit of normal gallbladder wall thickness; subsequent HIDA scan confirms acute on chronic cholecystitis. By the morning after admission, he became septic as evidenced by a leukocytosis and fever along with the source of infection. Acute on chronic cholecystitis, POD #2 status post laparoscopic cholecystectomy , sepsis-continues to improve now that he's had his gallbladder out. WBC normal , afebrile -received Zosyn and now can stop abx for discharge - thrombocytopenia likely related to infection and is improving-check CBC as outpt in 1 week -pathology showed gangrenous GB -f/u with Surgery in 1 week Elevated troponin likely mild demand ischemia in setting of sepsis and TERRA on CKD stage III--> troponin stable multiple times, no need to continue trending -no chest pain -restart ASA on discharge CAD, h/o [place] s/p stents and CABG, HTN, HLD, pacemaker in situ, acute on chronic diastolic CHF--worsening pulm edema on exam, continues with acute respiratory insufficiency requiring O2 -gave one dose IV lasix AM f discharge and he had a brisk UOP response, was not requiring O2 with ambulation on day of discharge - restart HCTZ -Continue Toprol 25 mg PO qd, and Zocor 40 mg PO qd -restart ASA HOCM--pt w/[place] [facility] [place] dysfunction -Appreciate Cardiology input -f[place] with [place] [facility] [place] II-with hyperglycemia postoperatively- HgbA1c 7.8%. Hyperglycemia improved now -restart home glipizide, metformin -recommend discontinuing Invokana due to persistently low CrCl CKD stage III--with mild renal insufficiency with creatinine of 1.8 on admission -->improved to 1.7 on day of discharge -Baseline creatinine 1.5-1.7 -renally dose meds, avoid nephrotoxins Hypokalemia-replaced with po K+ Depression--stable -Continue Celexa 40 mg PO qd Neuropathy -Continue gabapentin 300 mg PO TID Discharged to home in good condition Total Time Spent: Greater than 30 minutes This includes examination of the patient, discharge planning, medication reconciliation, and communication with other providers. Discharge Instructions Please refer to the electronic Patient Visit Report (Discharge Instructions) for additional information. Follow-Up PCP within 1-[address] Stephen/Surgery in 1 week Recommend checking PRP and CBC with PCP in 1-2 weeks Additional Copies To Jefferson Suarez D.O.
== END 2016-12-05 14:31 | disposition home or self-care (01) | DRG 417 ==
LOC: C.EDB 04:21 → C.2T 07:57 → ENRESERV 09:27 → OBSVTOIN 17:10 → ENRESERV 12-04 00:32 → C.MED 12-04 01:34
PROVIDERS: ADMIT Hospitalist; ATTEND Family Medicine
PROC: 0FT44ZZ Resection of Gallbladder, Percutaneous Endoscopic Approach (ICD-10-PCS; principal; 2016-12-03 08:15)
DX: K81.2 Acute cholecystitis with chronic cholecystitis (principal); A41.9 Sepsis, unspecified organism; I50.31 Acute diastolic (congestive) heart failure; I24.8 Other forms of acute ischemic heart disease; N17.9 Acute kidney failure, unspecified; I13.0 Hypertensive heart and chronic kidney disease with heart failure and stage 1 through stage 4 chronic kidney disease, or unspecified chronic kidney disease; I50.32 Chronic diastolic (congestive) heart failure; E11.65 Type 2 diabetes mellitus with hyperglycemia; D69.59 Other secondary thrombocytopenia; N18.3 Chronic kidney disease, stage 3 (moderate); I25.10 Atherosclerotic heart disease of native coronary artery without angina pectoris; E11.40 Type 2 diabetes mellitus with diabetic neuropathy, unspecified; E11.22 Type 2 diabetes mellitus with diabetic chronic kidney disease; E78.5 Hyperlipidemia, unspecified; F32.9 Major depressive disorder, single episode, unspecified; I25.2 Old myocardial infarction; Z79.899 Other long term (current) drug therapy; Z79.4 Long term (current) use of insulin; Z79.82 Long term (current) use of aspirin; Z95.1 Presence of aortocoronary bypass graft; Z95.0 Presence of cardiac pacemaker

== ENCOUNTER → 2017-01-16 | Outpatient (CLI) | payer BC ==
[~2017-01-16] MED LIST changes: +ACET-1047 PO; +CLC100 PO; +INSDGIPEN SQ; +METO-478 PO; -METO1TAB31 PO
--- NOTE | 2017-01-16 14:55 | DIAGNOSTIC IMAGING REPORT ---
LUMBAR SPINE 5 VIEWS CLINICAL HISTORY: Chronic low back pain. FINDINGS: Five views of the lumbar spine are compared to study dated 02/14/2015. The skeletal structures are osteopenic. There is no radiographic evidence of fracture or malalignment. Vertebral body height and alignment are maintained throughout the lumbar spine. Anterior osteophytes are seen throughout. The transverse and spinous processes appear intact. There is no evidence of spondylolysis. Degenerative endplate sclerosis is seen at all levels between L2-L3 and L5-S1. Moderate disc space narrowing is seen at all lumbar levels, greatest at L5-S1. Facet arthropathy is seen in the lower lumbar region. The bony pelvis is intact as imaged. Sclerotic change is noted in the sacroiliac joints. There is advanced atherosclerotic calcification of the abdominal aorta. Cholecystectomy clips are seen in the right upper quadrant. Surgical clips and suture material are also present in the right lower quadrant. There is a nonobstructed abdominal bowel gas pattern noting moderate constipation. The heart is enlarged and pacemaker leads are imaged. IMPRESSION: 1. No acute bony abnormality is seen involving the lumbosacral spine. 2. Osteopenia and spondylotic change as above. Dictated: 01/16/2017 2:20 PM Transcribed: 01/16/2017 2:55 PM [email or web address] Electronically signed by: Praful De La Rosa M.D. 01/16/2017 2:58 PM Dictated Date/Time: 01/16/2017 2:20 PM
== END | disposition home or self-care (01) ==
LOC: C.RDSM 13:38
PROVIDERS: ATTEND Internal Medicine
DX: M54.5 Low back pain (principal); M85.88 Other specified disorders of bone density and structure, other site; M47.897 Other spondylosis, lumbosacral region

== ENCOUNTER → 2017-05-19 | Outpatient (CLI) | payer BC ==
[~2017-05-19] MED LIST changes: +GABA-1219 PO; -GABA1CAP4 PO
--- NOTE | 2017-05-19 12:14 | DIAGNOSTIC IMAGING REPORT ---
R SHOULDER MIN 2 VIEWS CLINICAL HISTORY: 76 years-old Male presenting with RIGHT SHOULDER PAIN. TECHNIQUE: Neutral, transscapular Y, and axillary views of the right shoulder were obtained. COMPARISON: 03/11/2016. FINDINGS: Degenerative changes of the glenohumeral joint with inferior osteophytosis at the humeral head. Joint spaces grossly preserved. Calcification again noted in the region of the rotator cuff suggesting calcific tendinitis. Acromioclavicular joint with mild degenerative change. No subluxation of the humeral head. No acute fracture. Partially visualized cardiac leads and median sternotomy wires. IMPRESSION: 1. Degenerative changes of the glenohumeral joint. 2. Suggestion of calcific tendinitis of the rotator cuff. 3. Mild degenerative changes of the AC joint. 4. No acute osseous injury. Electronically signed by: Gurvinder Browning M.D. 05/19/2017 12:12 PM Dictated Date/Time: 05/19/2017 12:11 PM
== END | disposition home or self-care (01) ==
LOC: C.RDSM 11:16
PROVIDERS: ATTEND Internal Medicine
DX: M25.511 Pain in right shoulder (principal)

== ENCOUNTER → 2017-07-22 | Outpatient (CLI) | payer BC ==
--- NOTE | 2017-07-22 11:06 | DIAGNOSTIC IMAGING REPORT ---
ABDOMEN LIMITED (US) CLINICAL HISTORY: 76 years-old Male presenting with ABDOMINAL MASS. TECHNIQUE: Real-time grayscale Doppler ultrasound imaging of the periumbilical region was performed for a focused evaluation at the site of clinical concern. COMPARISON: CT of abdomen and pelvis from 2009. FINDINGS: At the site of clinical concern in the supraumbilical region, a bowel containing herniation is evident, with an apparent wide neck. This is reducible with sonographic probe compression. No associated fluid or hyperechogenic fat to suggest inflammatory change or strangulation. IMPRESSION: 1. Reducible bowel containing hernia in the supraumbilical region at the site of clinical concern. Electronically signed by: Gurvinder Browning M.D. 07/22/2017 11:04 AM Dictated Date/Time: 07/22/2017 10:54 AM
== END | disposition home or self-care (01) ==
LOC: C.ULTRBC 10:36
PROVIDERS: ATTEND Family Medicine
DX: K43.9 Ventral hernia without obstruction or gangrene (principal)

== ENCOUNTER 2021-11-28 18:37 | Inpatient (IN) ==
[2021-11-28 19:08] LABS: Hematocrit (blood only) 33.3 % (40.1-51.0); Hemoglobin 11.6 g/dl (14.0-18.0); Mean Corpuscular Hemoglobin 30.5 pg (25.0-34.0); Mean Corpuscular Hgb Conc 34.8 g/dL (32.0-36.0); Mean Corpuscular Volume 87.6 fL (80.0-100.0); Mean Platelet Volume 10.8 fL (9.4-12.4); Platelet Count 113 K/uL (130-400); RDW Coefficient of Variation 12.8 % (11.5-14.5); RDW Standard Deviation 40.9 fL (36.4-46.3); White Blood Count 6.12 K/ul (4.8-10.8)
[2021-11-28 19:16] LABS: INR 1.1 (0.9-1.1); Partial Thromboplastin Time 26.4 Seconds (21.0-31.0); Prothrombin Time 11.4 Seconds (9.0-12.0)
[2021-11-28 19:23] LABS: Basophils # (auto) 0.04 K/uL (0-0.2); Basophils % (auto) 0.7 %; Eosinophils # (auto) 0.27 K/uL (0-0.50); Eosinophils % (auto) 4.4 %; Immature Granulocytes # (auto) 0.02 K/uL (0.00-0.02); Immature Granulocytes % (auto) 0.3 %; Lymphocytes # (auto) 1.73 K/uL (1.2-3.4); Lymphocytes % (auto) 28.3 %; Monocytes # (auto) 0.63 K/uL (0.24-0.82); Monocytes % (auto) 10.3 %; Neutrophils # (auto) 3.43 K/uL (1.4-6.5)
--- NOTE | 2021-11-28 19:27 | Emergency Department Note ---
Impression & Plan Chest pain, Thrombocytopenia ED Provider Note NAME: CARMEN BEATTY AGE: 80 SEX: M : 1940 ARRIVES VIA: Ambulance INFORMANT: Patient, EMS ED PROVIDER(S): Phil Banerjee DO CHIEF COMPLAINT: Chest pain HPI: The patient is an 80-year-old male who presented to the emergency department by ambulance for evaluation of chest pain. The patient describes anterior chest pain which has been having intermittently over the course of the last few days. The patient started using nitroglycerin for the chest pain. He does note significant pain with exertion and significant relief with nitroglycerin and rest. Patient took nitroglycerin at approximately 4 PM today. Because of the ongoing symptoms he did call 911 and presented to the emergency department via ALS. Patient did receive 4 baby aspirin prior to arrival. He de nies having any chest pain at this time. He denies having any shortness of breath. The patient had a cardiac catheterization recently in [facility]. He did receive cardiac catheterization with stenting. He states has been compliant with his outpatient medications otherwise. He notices no fever or coughing. He notices no swelling in the legs. ROS: See above HPI for pertinent positives & negatives. A total of 10 systems reviewed and were otherwise negative. PAST MEDICAL HISTORY: See Below PAST SURGICAL HISTORY: See Below FAMILY HISTORY: See Below SOCIAL HISTORY: See Below HOME MEDICATIONS: See Below ALLERGIES: See Below VITALS: See Below PHYSICAL EXAMINATION: GENERAL: Patient is awake alert in no acute distress patient is resting comfortably and showing no signs of anxiety EYES: The conjunctivae are clear. The pupils are round and reactive. EARS, NOSE, MOUTH AND THROAT: The nose is without any evidence of any deformity. NECK: The neck is nontender and supple. RESPIRATORY: Normal respiratory effort is noted there is no evidence of wheezing rhonchi or rales CARDIOVASCULAR: Regular rate and rhythm noted there no murmurs rubs or gallops normal S1 normal S2. GASTROINTESTINAL: The abdomen is soft. Abdomen is nontender MUSCULOSKELETAL/EXTREMITIES: There is no evidence of gross deformity full range of motion is noted in the hips and shoulders. SKIN: There is no obvious evidence of any rash. There are no petechiae, pallor or cyanosis noted. NEUROLOGIC: Patient is awake alert and oriented x3 MEDICAL DECISION MAKING: Patient is an 80-year-old male who presented to the emergency department for an evaluation of chest pain. The patient has a history of coronary artery disease. He does have a pacemaker and it has stenting of coronary arteries. He was recently at [facility] for stenting. The patient has been using nitroglycerin over the course the last few days. He is having good relief with nitroglycerin however he does not normally have to use nitroglycerin this often. I discussed the patient's laboratory and radiographic studies with him. I discussed the limitations of the emergency room work-up for chest pain with him. Ultimately given his presentation I did discuss his case with the on-call [facility] hospitalist. They have agreed to evaluate the patient in the emergency department for further management and disposition. Triage Nursing notes reviewed. Prior medical records reviewed Vital Signs: reviewed and remarkable for no significant abnormalities Differential diagnosis: Cardiac ischemia, aortic dissection, pulmonary embolism, pneumothorax, pneum onia, pericarditis, myocarditis, esophageal rupture, GERD, cholecystitis, pancreatitis, musculoskeletal, as well as other pathologies. ER treatment provided: See below Diagnostics interpreted by me: ECG: EKG was obtained in the emergency department. My interpretation is dual- chamber pacemaker at 60 bpm. There was no [place] beats appreciated. A left bundle branch block pattern was favored. This was compared to a tracing from November 16, 2020. No significant changes were noted. Cardiac Monitoring: An order was placed for continuous cardiac monitoring. The monitor shows a rate of 60 bpm with paced rhythm. Laboratory studies: As stated above and show below. Imaging studies: See below Consultation(s): I discussed this case with Dr. Lyons [facility]. Past Med/Surg History Medical History Eustachian tube dysfunction Mixed conductive and sensorineural hearing loss of right ear with restricted hearing of left 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 Surgical History History of appendectomy History of cardiac cath History of cataract extraction History of knee surgery History of shoulder surgery Family History Father ALS (amyotrophic lateral sclerosis) Congestive heart disease Coronary heart disease Cardiac disorder Hypertension Mother Alzheimer disease Coronary heart disease Cardiac disorder Diabetes Hypertension Other Family history non-contributory Social History Smoking Status: Never smoker Hx Alcohol Use: No Preferred Language: Mongolian marital status: Single Current Living Situation: Alone current occupational status: retired Feels Safe at Home: Yes Allergies Allergies Allergy/AdvReac Type Severity Reaction Status Date / Time Sulfa (Sulfonamide Allergy Severe SHORTNESS Verified 09/03/21 13:41 Antibiotics) OF BREATH atenolol Allergy Unknown UNKNOWN Verified 09/03/21 13:41 erythromycin base Allergy Unknown Unknown Verified 09/03/21 13:41 prednisone Allergy Unknown Unknown Verified 09/03/21 13:41 ibuprofen AdvReac Intermediate STOMACH Verified 09/03/21 13:41 EROSION naproxen AdvReac Intermediate STOMACH Verified 09/03/21 13:41 EROSION fentanyl AdvReac Mild HICCUPS Verified 09/03/21 13:41 midazolam AdvReac Mild HICCUPS Verified 09/03/21 13:41 Home Meds Home Medications Medication Instructions Recorded Confirmed latanoprost 0.005 % eye drops 1 drp OPB HS 03/01/19 09/03/21 metoprolol succinate 25 mg 25 mg PO QAM 03/01/19 09/03/21 tablet,extended release 24 hr multivitamin 1 tab PO QAM 03/01/19 09/03/21 simvastatin 40 mg tablet 40 mg PO PM 03/01/19 09/03/21 timolol maleate 0.5 % eye drops 1 drp OPL QAM 03/01/19 09/03/21 omega 3 350 mg-dha 235 mg-epa 90 1 cap PO TID 06/18/19 09/03/21 mg-fish oil 597 mg capsule,delay rel (Kent-3) blood sugar diagnostic #10 ea 07/06/19 09/03/21 carbidopa 25 mg-levodopa 100 mg 1 tab PO TID 07/06/19 09/03/21 tablet citalopram 10 mg tablet (Celexa) 10 mg PO HS 07/06/19 09/03/21 exenatide microspheres 2 mg/0.65 2 mg subcut WK 07/06/19 09/03/21 mL subcutaneous pen injector meclizine 25 mg tablet 25 mg PO TID PRN dizzyness 07/06/19 09/03/21 metformin 500 mg tablet,extended 1,000 mg PO QDD 07/06/19 09/03/21 release 24 hr gabapentin 300 mg capsule 600 mg PO BID 10/06/19 09/03/21 (Neurontin) acetaminophen 500 mg tablet 1,000 mg PO TID 03/06/20 09/03/21 (Acetaminophen Extra Strength) alendronate 70 mg tablet 70 mg PO WK 03/06/20 09/03/21 ammonium lactate 12 % topical cream 1 applic topical QAM 03/06/20 09/03/21 cholecalciferol (vitamin D3) 50 2,000 unit PO QAM 03/06/20 09/03/21 mcg (2,000 unit) capsule colchicine 0.6 mg tablet 0.6 mg PO TID PRN gout pain 03/06/20 09/03/21 diclofenac sodium 1 % topical gel 1 ea topical QID PRN Pain 03/06/20 09/03/21 (Voltaren) insulin glargine 100 unit/mL (3 5 unit subcut HS 03/06/20 09/03/21 mL) subcutaneous pen (Basaglar KwikPen U-100 Insulin) oxycodone 5 mg tablet 5 mg PO Q4 PRN Pain 03/06/20 09/03/21 tramadol 50 mg tablet 50 mg PO Q8 03/06/20 09/03/21 Previous Rx's Medication Instructions Recorded bacitracin 500 unit/gram topical 1 applic topical BID #14 grams 06/15/20 ointment Results & Data (ED) Vital Signs Vital Signs - 24 hr 11/28/21 18:45 11/28/21 18:45 11/28/21 18:45 Temperature 36.4 C L Temperature Source Oral Pulse Rate 68 61 Pulse Rate from SpO2 Sensor Respiratory Rate 16 16 Respiratory Effort / Characteristics Non-Labored Respiratory Depth Normal Respiratory Pattern Regular Blood Pressure 129/64 129/64 Blood Pressure Mean 85 85 Blood Pressure Position Lying Pulse Oximetry 95 94 Oxygen Delivery Method Room Air Room Air Sepsis Recent Fever Within 48 Hours No Sepsis New/Unexplained Change in Mental Status No Sepsis Action Taken by Nursing No Action Required 11/28/21 18:45 11/28/21 19:00 Temperature Temperature Source Pulse Rate 60 60 Pulse Rate from SpO2 Sensor 60 Respiratory Rate 18 23 Respiratory Effort / Characteristics Respiratory Depth Respiratory Pattern Blood Pressure 124/58 L Blood Pressure Mean 80 Blood Pressure Position Pulse Oximetry 97 96 Oxygen Delivery Method Room Air Sepsis Recent Fever Within 48 Hours Sepsis New/Unexplained Change in Mental Status Sepsis Action Taken by [facility] Medications Current Medication List: was personally reviewed by me Laboratory Data Attestation: I reviewed the patient's lab results. Result diagrams: 11/28/21 18:53 11/28/21 18:53 Lab Results 11/28/21 11/28/21 11/28/21 Range/Units 18:53 18:53 18:53 WBC 6.12 (4.8-10.8) K/ul RBC 3.80 L (4.63-6.08) M/uL Hgb 11.6 L (14.0-18.0) g/dl Hct 33.3 L (40.1-51.0) % MCV 87.6 (80.0-100.0) fL MCH 30.5 (25.0-34.0) pg MCHC 34.8 (32.0-36.0) g/dL RDW Std Deviation 40.9 (36.4-46.3) fL RDW Coeff of Tobin 12.8 (11.5-14.5) % Plt Count 113 L (130-400) K/uL MPV 10.8 (9.4-12.4) fL Immature Gran % (Auto) 0.3 % Neut % (Auto) 56.0 % Lymph % (Auto) 28.3 % Jackson % (Auto) 10.3 % Eos % (Auto) 4.4 % Baso % (Auto) 0.7 % Neut # (Auto) 3.43 (1.4-6.5) K/uL Lymph # (Auto) 1.73 (1.2-3.4) K/uL Jackson # (Auto) 0.63 (0.24-0.82) K/uL Eos # (Auto) 0.27 (0-0.50) K/uL Baso # (Auto) 0.04 (0-0.2) K/uL Immature Gran # (Auto) 0.02 (0.00-0.02) K/uL PT 11.4 (9.0-12.0) Seconds INR 1.1 (0.9-1.1) APTT 26.4 (21.0-31.0) Seconds PTT Ratio 1.0 Sodium 138 (136-145) mmol/L Potassium 4.3 (3.5-5.1) mmol/L Chloride 103 (98-107) mmol/L Carbon Dioxide 30 (21-32) mmol/L Anion Gap 5 (3-11) BUN 19 (6-23) mg/dl Creatinine 1.40 (0.6-1.4) mg/dl Est Cr Clr Drug Dosing 35.4 ml/min Est GFR ( Amer) 53.8 ml/min Est GFR (Non-Af Amer) 46.5 ml/min BUN/Creatinine Ratio 13.6 (10-20) Glucose 207 H (70-99(Fasting)) mg/dl Calcium 9.7 (8.5-10.1) mg/dl Total Bilirubin 0.8 (0.2-1.0) mg/dl AST 20 (13-39) U/L ALT 30 (7-52) U/L Alkaline Phosphatase 104 (34-104) U/L Troponin I High Sens 9.8 (0-20) pg/ml Total Protein 6.4 (6.0-8.3) gm/dl Albumin 3.9 (3.4-5.0) gm/dl Globulin 2.5 (2.5-4.0) gm/dl Albumin/Globulin Ratio 1.6 (0.9-2) Lipase 50 (11-82) U/L Imaging Data Radiologist's Impression: Chest X-Ray 11/28/21 18:42 SINGLE VIEW CHEST CLINICAL HISTORY: Atypical chest pain. FINDINGS: An AP, portable, upright chest radiograph is compared to study dated 04/06/2021 and correlated with chest CT dated 11/16/2020. The patient is status post midline sternotomy. A 2-lead cardiac AICD is unchanged in position and partially obscures the left lower chest. The heart is enlarged noting atheroscle rotic calcification of the thoracic aorta. The pulmonary vasculature is noncongested. Chronic interstitial thickening is similar to previous. Scarring/atelectasis is noted the lung bases. There are scattered calcified granulomas. No airspace consolidation or large pleural effusion is identified. No pneumothorax is seen. The skeletal structures are osteopenic. The bony thorax is grossly intact. Arthritic change is seen in the shoulders. Cholecystectomy clips are noted in the right upper quadrant. IMPRESSION: 1. Cardiomegaly and AICD without radiographic evidence of congestive failure. 2. No airspace consolidation or large pleural effusion is identified. ACT 112: Negative or not required by law. Electronically signed by: Praful De La Rosa M.D. 11/28/2021 8:42 PM Discharge Plan Visit Data Chief Complaint: Chest Pain Stated Complaint: CHEST PAIN ED Provider: Phil Banerjee Discharge Problem: Chest pain, Thrombocytopenia Patient Disposition: Being Evaluated by Hospitalist Forms Stand Alone Forms: My [facility] Prescriptions Prescriptions: No Action Bydureon 2 mg/0.65 mL pen injector 2 mg SQ WK Rx Instructions: friday meclizine 25 mg tablet 25 mg PO TID PRN (Reason: dizzyness) metformin 500 mg tablet extended release 24 hr 1,000 mg PO QDD carbidopa-levodopa 25-100 mg tablet 1 tab PO TID citalopram [Celexa] 10 mg tablet 10 mg PO HS (DME) blood sugar diagnostic Strip See Rx Instructions .ROUTE .MEDSUPPLY Qty: 10 Rx Instructions: As directed metoprolol succinate 25 mg tablet extended release 24 hr 25 mg PO QAM simvastatin 40 mg tablet 40 mg PO PM latanoprost 0.005 % drops 1 drp OPB HS timolol maleate 0.5 % drops 1 drp OPL QAM multivitamin tablet 1 tab PO QAM Kent-3 350 mg-235 mg- 90 mg-597 mg Capsule,Delayed Release(Dr/Ec) 1 cap PO TID gabapentin [Neurontin] 300 mg capsule 600 mg PO BID tramadol 50 mg tablet 50 mg PO Q8 Basaglar KwikPen U-100 Insulin 100 unit/mL (3 mL) insulin pen 5 unit SUBCUT HS alendronate 70 mg tablet 70 mg PO WK Rx Instructions: Friday cholecalciferol (vitamin D3) 50 mcg (2,000 unit) capsule 2,000 unit PO QAM oxycodone 5 mg tablet 5 mg PO Q4 PRN (Reason: Pain) acetaminophen [Acetaminophen Extra Strength] 500 mg Tablet 1,000 mg PO TID ammonium lactate 12 % Cream 1 applic TOPICAL QAM Rx Instructions: apply and rub in well toes colchicine 0.6 mg Tablet 0.6 mg PO TID PRN (Reason: gout pain) diclofenac sodium [Voltaren] 1 % Gel 1 ea TOPICAL QID PRN (Reason: Pain) bacitracin 500 unit/gram ointment 1 applic topical BID Qty: 14 0RF Referrals Referrals: Jefferson Suarez DO [Primary Care Provider] -
[2021-11-28 19:30] LABS: Albumin Globulin Ratio 1.6 (0.9-2); Albumin Level 3.9 gm/dl (3.4-5.0); BUN Creatinine Ratio 13.6 (10-20); Bilirubin,Total 0.8 mg/dl (0.2-1.0); Calcium 9.7 mg/dl (8.5-10.1); Creatinine Clr Calc Pharmacy 35.4 ml/min; Est GFR (African American) 53.8 ml/min; Est GFR (Non-African American) 46.5 ml/min; Globulin 2.5 gm/dl (2.5-4.0); Potassium 4.3 mmol/L (3.5-5.1); Total Protein 6.4 gm/dl (6.0-8.3)
[2021-11-28 19:31] LABS: Troponin I High Sensitivity 9.8 pg/ml (0-20)
--- NOTE | 2021-11-28 20:43 | XRay Report ---
SINGLE VIEW CHEST CLINICAL HISTORY: Atypical chest pain. FINDINGS: An AP, portable, upright chest radiograph is compared to study dated 04/06/2021 and correlat ed with chest CT dated 11/16/2020. The patient is status post midline sternotomy. A 2-lead cardiac AIC D is unchanged in position and partially obscures the left lower chest. The heart is enlarged noting atherosclerotic calcification of the thoracic aorta. The pulmonary vasculature is noncongested. Chron ic interstitial thickening is similar to previous. Scarring/atelectasis is noted the lung bases. Ther e are scattered calcified granulomas. No airspace consolidation or large pleural effusion is identifi ed. No pneumothorax is seen. The skeletal structures are osteopenic. The bony thorax is grossly intac t. Arthritic change is seen in the shoulders. Cholecystectomy clips are noted in the right upper quad rant. IMPRESSION: 1. Cardiomegaly and AICD without radiographic evidence of congestive failure. 2. No airspace consolidation or large pleural effusion is identified. ACT 112: Negative or not required by law. Electronically signed by: Praful De La Rosa M.D. 11/28/2021 8:42 PM
--- NOTE | 2021-11-28 22:06 | History & Physical Report ---
Date of Service November 28, 2021 Assessment & Plan (1) Chest pain: Plan: Pt is an 80 yo male with an extensive cardiac history including hypertrophic cardiomyopathy s/p myomectomy, CAD, VA s/p CABG and stenting in the late with most recent stents in 05/2021, dual pacemaker/defibrillator, CHF, HLD, HTN, DM, parkinson's disease, and CKD3 presenting with increased chest tightness, SOB, and left shoulder pain over the last few days. Chest pain/tightness - not present in ER - extensive cardiac hx, takes isosorbide mononitrate 30 mg daily, metoprolol succinate 25 mg daily - CXR showed cardiomegaly but neg for acute process - EKG showed AV paced rhythm with no abnormalities - 1st trop neg at 9.8, trend q6hr x2 more - consult cardio d/t cardiac hx and recent stent placement - if cath recommended, pt would prefer this done in [place] CAD/HLD - continue home simvastatin 40 mg HTN - most recent BP 122/68 - continue home metoprolol 25 mg qAM Thrombocytopenia - Plt at 113 - monitor, AM CBC Anemia - Hgb at 11.6 - baseline appears to be 12-13 - no signs of bleeding - monitor, AM CBC DM - home regimen of metformin 1000mg daily, insulin glargine 5 unit HS, and exenatide 2mg weekly - inpatient regimen: goal 110-140mg/dL BS check ACHS if eating, q6hr if NPO Basal: 7 units BID Short acting: Correction Factor: 35 mg/dL/unit Carbohydrate ratio: 15 g/unit adjust as necessary (2) Thrombocytopenia: (3) Chronic kidney disease, stage III (moderate): (4) Diabetes mellitus: (5) Hypertrophic cardiomyopathy: (6) Hypertension: (7) Anemia: Plan Diet: NPO after midnight, possible cath? Fluids/electrolytes: none DVT ppx: currently on aspirin and plavix, ordered SCDs Code: full consults: cardio Dispo: med/tele History of Present Illness Chief Complaint: chest pain/tightness Primary Care Provider: Jefferson Suarez DO Pt is an 80 yo male with an extensive cardiac history including hypertrophic cardiomyopathy s/p myomectomy, CAD, VA s/p CABG and stenting in the late with most recent stents in 05/2021, dual pacemaker/defibrillator, CHF, HLD, HTN, DM, parkinson's disease, and CKD3 presenting with increased chest tightness, SOB, and left shoulder pain over the last few days. Pt explains that about a week ago he noticed increased shortness of breath when walking up hills. A few days later he noticed chest tightness and the onset of dull left shoulder pain. He began to take his nitro more often throughout the day to relieve this pain (3-4 times per day). The chest tightness/pain is relieved with rest and/or nitro use. He contacted his doctor in [place] who did his most recent stents and they advised him to come to the ER. Pt had his first round of stenting in the late . His most recent stents were placed in 05/2021 after experiencing exertional symptoms. Coronary angiography at that time revealed restenosis of mid LAD stent, complete occlusion of the RCA, and 80% stenosis of the proximal left circumflex. He tells me they replaced two of the previous stents from the and adding an additional two (for a total of four stents). He has a stent in the proximal ostial circumflex, mid LAD, and two in the second diagonal bifurcation. He completed cardiac rehab but tells me that he feels he hasn't been keeping up with it. Since the stents, he has been taking aspirin twice a day and plavix once a day. He also explains that he had a myomectomy done (open) d/t the hypertrophic cardiomyopathy where they also performed a CABG (unplanned). In the ER, his vitals were stable and WNL. CBC showed anemia with Hgb of 11.6 and thrombocytopenia at 113. Electrolytes normal. Trop neg at 9.8. PT/INR WNL. CXR showed cardiomegaly but no acute processes. EKG showed a dual AV paced rhythm with no abnormalities. Allergies Allergy/AdvReac Type Severity Reaction Status Date / Time Sulfa (Sulfonamide Allergy Severe SHORTNESS Verified 11/28/21 23:00 Antibiotics) OF BREATH atenolol Allergy Unknown UNKNOWN Verified 11/28/21 23:00 erythromycin base Allergy Unknown Unknown Verified 11/28/21 23:00 prednisone Allergy Unknown Unknown Verified 11/28/21 23:00 ibuprofen AdvReac Intermediate STOMACH Verified 11/28/21 23:00 EROSION naproxen AdvReac Intermediate STOMACH Verified 11/28/21 23:00 EROSION fentanyl AdvReac Mild HICCUPS Verified 11/28/21 23:00 midazolam AdvReac Mild HICCUPS Verified 11/28/21 23:00 Home Medications Medication Instructions Recorded Confirmed Type latanoprost 0.005 % eye drops 1 drp OPB HS 03/01/19 09/03/21 History metoprolol succinate 25 mg 25 mg PO QAM 03/01/19 09/03/21 History tablet,extended release 24 hr multivitamin 1 tab PO QAM 03/01/19 09/03/21 History simvastatin 40 mg tablet 40 mg PO PM 03/01/19 09/03/21 History timolol maleate 0.5 % eye drops 1 drp OPL QAM 03/01/19 09/03/21 History omega 3 350 mg-dha 235 mg-epa 90 1 cap PO TID 06/18/19 11/28/21 History mg-fish oil 597 mg capsule,delay rel (Blaine-3) blood sugar diagnostic #10 ea 07/06/19 09/03/21 History carbidopa 25 mg-levodopa 100 mg 0.5 tab PO TID 07/06/19 11/28/21 History tablet citalopram 10 mg tablet (Celexa) 10 mg PO HS 07/06/19 11/28/21 History exenatide microspheres 2 mg/0.65 2 mg subcut WK 07/06/19 11/28/21 History mL subcutaneous pen injector meclizine 25 mg tablet 25 mg PO TID PRN dizzyness 07/06/19 09/03/21 History metformin 500 mg tablet,extended 1,000 mg PO QDD 07/06/19 09/03/21 History release 24 hr gabapentin 300 mg capsule 600 mg PO BID 10/06/19 11/28/21 History (Neurontin) acetaminophen 500 mg tablet 1,000 mg PO TID 03/06/20 11/28/21 History (Acetaminophen Extra Strength) alendronate 70 mg tablet 70 mg PO WK 03/06/20 11/28/21 History ammonium lactate 12 % topical cream 1 applic topical QAM 03/06/20 11/28/21 History cholecalciferol (vitamin D3) 50 2,000 unit PO QAM 03/06/20 11/28/21 History mcg (2,000 unit) capsule colchicine 0.6 mg tablet 0.6 mg PO TID PRN gout pain 03/06/20 11/28/21 History diclofenac sodium 1 % topical gel 1 ea topical QID PRN Pain 03/06/20 09/03/21 History (Voltaren) insulin glargine 100 unit/mL (3 5 unit subcut HS 03/06/20 09/03/21 History mL) subcutaneous pen (Basaglar KwikPen U-100 Insulin) oxycodone 5 mg tablet 5 mg PO Q4 PRN Pain 03/06/20 09/03/21 History tramadol 50 mg tablet 50 mg PO Q8 03/06/20 09/03/21 History bacitracin 500 unit/gram topical 1 applic topical BID #14 grams 06/15/20 11/28/21 Rx ointment isosorbide mononitrate 30 mg 30 mg PO QAM 11/28/21 11/28/21 History tablet,extended release 24 hr nitroglycerin 0.3 mg sublingual 0.3 mg sublingual .PRN/UD PRN 11/28/21 11/28/21 History tablet Chest Pain Past Med/Surg History Medical History (Updated 11/28/21 @ 23:45 by Ximena Lyons DO) Anemia CAD (coronary artery disease) Chronic kidney disease, stage III (moderate) Diabetes mellitus Hypertension Mixed conductive and sensorineural hearing loss of right ear with restricted hearing of left ear Surgical History History of appendectomy History of cardiac cath History of cataract extraction History of knee surgery History of shoulder surgery Family History Father ALS (amyotrophic lateral sclerosis) Congestive heart disease Coronary heart disease Cardiac disorder Hypertension Mother Alzheimer disease Coronary heart disease Cardiac disorder Diabetes Hypertension Other Family history non-contributory Social History Smoking Status: Never smoker Hx Alcohol Use: No Preferred Language: Luxembourgish marital status: Single Current Living Situation: Alone current occupational status: retired Feels Safe at Home: Yes Review of Systems Constitutional: No fevers or chills. Eyes: No visual changes. Ear, Nose, Mouth, Throat: No hearing problems (aside from age related), sore throat, or congestion. Respiratory: No current SOB, cough, or trouble breathing. Cardiovascular: Additional Comments: No current chest pain or palpitations. Gastrointestinal: No diarrhea or constipation. Denies abdominal pain. Denies hematochezia. Integumentary: No unusual rashes or skin lesions. Neurologic: No perceived weakness or sensation disturbances. Physical Exam Constitutional: NAD, vitals WNL. Eyes: PERRLA. Conjunctivae normal. ENMT: TM normal. Nonerythematous oropharynx with no lesions. Respiratory: CTA bilaterally. Non labored breathing. No rhonchi, wheezing, or crackles. Cardiovascular: RRR. No murmurs noted. No LE edema. Peripheral pulses 2+. Gastrointestinal (Abdomen): Nontender, +BS. No masses noted. Skin: No rashes or skin lesions noted. Sternotomy scar and defibrillator insertion scar visualized. Neurologic: Sensation grossly intact. No FND appreciated. Psychiatric: Speech of normal pace and content. Mood and affect congruent. Results & Data Results & Data ([facility]) Vital Signs (Past 12 Hours) Vital Signs Temp Pulse Resp BP Pulse Ox O2 Del Method 11/28/21 21:00 76 23 122/68 96 Room Air 11/28/21 20:30 76 23 112/65 97 Room Air 11/28/21 20:00 60 16 115/58 L 98 Room Air 11/28/21 19:30 60 15 109/62 99 Room Air 11/28/21 19:00 60 23 124/58 L 96 Room Air 11/28/21 18:45 60 18 97 11/28/21 18:45 129/64 11/28/21 18:45 61 16 94 Room Air 11/28/21 18:45 36.4 C L 68 16 129/64 95 Room Air Laboratory Results Laboratory Results WBC 6.12 K/ul (4.8-10.8) 11/28/21 18:53 RBC 3.80 M/uL (4.63-6.08) L 11/28/21 18:53 Hgb 11.6 g/dl (14.0-18.0) L 11/28/21 18:53 Hct 33.3 % (40.1-51.0) L 11/28/21 18:53 MCV 87.6 fL (80.0-100.0) 11/28/21 18:53 MCH 30.5 pg (25.0-34.0) 11/28/21 18:53 MCHC 34.8 g/dL (32.0-36.0) 11/28/21 18:53 RDW Std Deviation 40.9 fL (36.4-46.3) 11/28/21 18:53 RDW Coeff of Tobin 12.8 % (11.5-14.5) 11/28/21 18:53 Plt Count 113 K/uL (130-400) L 11/28/21 18:53 MPV 10.8 fL (9.4-12.4) 11/28/21 18:53 Immature Gran % (Auto) 0.3 % 11/28/21 18:53 Neut % (Auto) 56.0 % 11/28/21 18:53 Lymph % (Auto) 28.3 % 11/28/21 18:53 [place] % (Auto) 10.3 % 11/28/21 18:53 Eos % (Auto) 4.4 % 11/28/21 18:53 Baso % (Auto) 0.7 % 11/28/21 18:53 Neut # (Auto) 3.43 K/uL (1.4-6.5) 11/28/21 18:53 Lymph # (Auto) 1.73 K/uL (1.2-3.4) 11/28/21 18:53 [place] # (Auto) 0.63 K/uL (0.24-0.82) 11/28/21 18:53 Eos # (Auto) 0.27 K/uL (0-0.50) 11/28/21 18:53 Baso # (Auto) 0.04 K/uL (0-0.2) 11/28/21 18:53 Immature Gran # (Auto) 0.02 K/uL (0.00-0.02) 11/28/21 18:53 PT 11.4 Seconds (9.0-12.0) 11/28/21 18:53 INR 1.1 (0.9-1.1) 11/28/21 18:53 APTT 26.4 Seconds (21.0-31.0) 11/28/21 18:53 PTT Ratio 1.0 11/28/21 18:53 Sodium 138 mmol/L (136-145) 11/28/21 18:53 Potassium 4.3 mmol/L (3.5-5.1) 11/28/21 18:53 Chloride 103 mmol/L (98-107) 11/28/21 18:53 Carbon Dioxide 30 mmol/L (21-32) 11/28/21 18:53 Anion Gap 5 (3-11) 11/28/21 18:53 BUN 19 mg/dl (6-23) 11/28/21 18:53 Creatinine 1.40 mg/dl (0.6-1.4) 11/28/21 18:53 Est Cr Clr Drug Dosing 35.4 ml/min 11/28/21 18:53 Est GFR ( Amer) 53.8 ml/min 11/28/21 18:53 Est GFR (Non-Af Amer) 46.5 ml/min 11/28/21 18:53 BUN/Creatinine Ratio 13.6 (10-20) 11/28/21 18:53 Glucose 207 mg/dl (70-99(Fasting)) H 11/28/21 18:53 Calcium 9.7 mg/dl (8.5-10.1) 11/28/21 18:53 Total Bilirubin 0.8 mg/dl (0.2-1.0) 11/28/21 18:53 AST 20 U/L (13-39) 11/28/21 18:53 ALT 30 U/L (7-52) 11/28/21 18:53 Alkaline Phosphatase 104 U/L (34-104) 11/28/21 18:53 Troponin I High Sens 9.8 pg/ml (0-20) 11/28/21 18:53 Total Protein 6.4 gm/dl (6.0-8.3) 11/28/21 18:53 Albumin 3.9 gm/dl (3.4-5.0) 11/28/21 18:53 Globulin 2.5 gm/dl (2.5-4.0) 11/28/21 18:53 Albumin/Globulin Ratio 1.6 (0.9-2) 11/28/21 18:53 Lipase 50 U/L (11-82) 11/28/21 18:53 SARS-CoV-2, RNA, NAAT NEGATIVE (NEGATIVE) 11/28/21 21:00 Impressions Chest X-Ray 11/28/21 18:42 SINGLE VIEW CHEST CLINICAL HISTORY: Atypical chest pain. FINDINGS: An AP, portable, upright chest radiograph is compared to study dated 04/06/2021 and correlated with chest CT dated 11/16/2020. The patient is status post midline sternotomy. A 2-lead cardiac AICD is unchanged in position and partially obscures the left lower chest. The heart is enlarged noting atherosclerotic calcification of the thoracic aorta. The pulmonary vasculature is noncongested. Chronic interstitial thickening is similar to previous. Scarring/atelectasis is noted the lung bases. There are scattered calcified granulomas. No airspace consolidation or large pleural effusion is identified. No pneumothorax is seen. The skeletal structures are osteopenic. The bony thorax is grossly intact. Arthritic change is seen in the shoulders. Cholecystectomy clips are noted in the right upper quadrant. IMPRESSION: 1. Cardiomegaly and AICD without radiographic evidence of congestive failure. 2. No airspace consolidation or large pleural effusion is identified. ACT 112: Negative or not required by law. Electronically signed by: Praful De La Rosa M.D. 11/28/2021 8:42 PM Diagnostic Findings Chest X-Ray 11/28/21 18:42 SINGLE VIEW CHEST CLINICAL HISTORY: Atypical chest pain. FINDINGS: An AP, portable, upright chest radiograph is compared to study dated 04/06/2021 and correlated with chest CT dated 11/16/2020. The patient is status post midline sternotomy. A 2-lead cardiac AICD is unchanged in position and partially obscures the left lower chest. The heart is enlarged noting atherosclerotic calcification of the thoracic aorta. The pulmonary vasculature is noncongested. Chronic interstitial thickening is similar to previous. Scarring/atelectasis is noted the lung bases. There are scattered calcified granulomas. No airspace consolidation or large pleural effusion is identified. No pneumothorax is seen. The skeletal structures are osteopenic. The bony thorax is grossly intact. Arthritic change is seen in the shoulders. Cholecystectomy clips are noted in the right upper quadrant. IMPRESSION: 1. Cardiomegaly and AICD without radiographic evidence of congestive failure. 2. No airspace consolidation or large pleural effusion is identified. ACT 112: Negative or not required by law. Electronically signed by: Praful De La Rosa M.D. 11/28/2021 8:42 PM ECG Additional Comments: Paced rhythm. No acute ischemia Code Status & VTE Plan Code Status Full VTE Prophylaxis Plan VTE Prophylaxis will be ordered: Yes Supervising Physician Co-Signing Physician Notes Patient seen and examined, chart reviewed, case discussed with Dr. Dickerson and I agree with the assessment and plan as documented above. In brief, Mr. Mansfield is an 80-year-old male with history of hypertension, diabetes, CKD stage III hypertrophic cardiomyopathy and coronary artery disease status post cardiac stenting in the , CABG x1 vessel as well as myomectomy for HoCM and placement of AICD in 2012, recent stents placed at [facility] x4 in May 2021. Patient reports taking aspirin 81 mg twice daily as well as Plavix. He is also compliant with his metoprolol and nitrates. He has been experiencing progressive exertional dyspnea and chest tightness. Symptoms are relieved with nitro. He has had some symptoms at rest. Presently chest pain- free Troponin x1 is within normal limits EKG is paced with no acute ischemia by Sgarbossa criteria On physical exam patient is awake alert and oriented, nontoxic in appearance. Comfortable with no pain Heart+ S1, S2, regular Lungsno rales/rhonchi/wheezes Abdomenpositive bowel sounds, soft, nontender, nondistended Extremitieswarm, well-perfused without clubbing cyanosis or edema Labs and images reviewed. Largely unremarkable. Chronic, stable normochromic/normocytic anemia with Hgb = 11.6, HCT equal 33 point Platelet = 113 Assessment/[id number] male with history of hypertension, diabetes, coronary artery disease and CKD. Patient with extensive cardiac history to include stent placement in the , subsequent CABG x1 vessel, cardiac myomectomy for hypertrophic cardiomyopathy and placement of AICD, most recently had stents placed at [facility] x4 in May 2021. Patient presents with progressive dyspnea on exertion relieved with rest and nitro concerning for angina symptoms. -Continue home medications Trend troponin Telemetry monitoring Question escalation of antianginal regimen Cardiology consultation appreciated Remainder as above Resident Activity Tracking Resident Involvement: Resident Care Provided Care Provided: Adult Hospital Medicine (1) Chest pain Chest pain type: unspecified Qualified Code(s): R07.9 - Chest pain, unspecified
--- NOTE | 2021-11-28 23:55 | Billing Data ---
Date of Service November 28, 2021 Coding Level of Care Code INT OBSERVATION CARE 70M LVL 3
[2021-11-29] MEDS ORDERED: GLUCOSE 40% GEL 15 GM TUBE PO PRN (01:29)
[2021-11-29] MEDS ORDERED: CARBOHYDRATES FOR HYPOGLYCEMIA PO PRN (01:29)
[2021-11-29] MEDS ORDERED: GLUCOSE 10 TAB/TUBE PO PRN (01:29)
[2021-11-29] MEDS ORDERED: DEXTROSE 50% 50 ML SYRINGE IV PRN (01:29)
[2021-11-29] MEDS ORDERED: GLUCAGON FOR INJ 1 MG VIAL SQ PRN (01:29)
--- NOTE | 2021-11-29 06:46 | Hospitalist Progress Note ---
Date of Service November 29, 2021 Assessment & Plan (1) Chest pain: Plan: Pt is an 80 yo male with an extensive cardiac history including hypertrophic cardiomyopathy s/p myomectomy, CAD, PA s/p CABG and stenting in the late with most recent stents in 05/2021, dual pacemaker/defibrillator, CHF, HLD, HTN, DM, parkinson's disease, and CKD3 presenting with increased chest tightness, SOB, and left shoulder pain over the last few days. Chest pain/tightness - not present in ER - extensive cardiac hx, takes isosorbide mononitrate 30 mg daily, metoprolol succinate 25 mg daily - CXR showed cardiomegaly but neg for acute process - EKG showed AV paced rhythm with no abnormalities - 1st trop neg at 9.8, 2nd=10.0, trend to peak Plan: Cardio consulted; pt states that if cath is recommenced he prefer it be done at [place] CAD/HLD - continue home simvastatin 40 mg HTN - most recent BP 122/68 - continue home metoprolol 25 mg qAM Thrombocytopenia - Chronic; appears baseline around 100 since 2017 - Plt at 113 on admission; - Normocytic Anemia - Hgb at 11.6 - baseline appears to be 10-12 - no signs of bleeding - could check iron panel, ferritin DM - home regimen of metformin 1000mg daily, insulin glargine 5 unit HS, and exenatide 2mg weekly - inpatient regimen: goal 110-140mg/dL BS check ACHS if eating, q6hr if NPO Basal: 7 units BID Short acting: Correction Factor: 35 mg/dL/unit Carbohydrate ratio: 15 g/unit adjust as necessary (2) Thrombocytopenia: (3) Chronic kidney disease, stage III (moderate): (4) Diabetes mellitus: (5) Hypertrophic cardiomyopathy: (6) Hypertension: (7) Anemia: Plan Diet: NPO after midnight, possible cath? Fluids/electrolytes: none DVT ppx: currently on aspirin and plavix, ordered SCDs Code: full consults: cardio Dispo: med/tele Admission and Anticipated Discharge Date Admission Date: November 28, 2021 Subjective 80 year old male with a extensive cardiac history including hypertrophic cardiomyopathy s/p myomectomy, CAD, PA s/p CABG with stenting (4 total: proximal ostial circumflex, mid LAD, and two in the second diagonal bifurcation), dual pacemaker/defibrillator, CHF, HLD, HTN, DM, Parkinson's disease, and CKD3. For past week has been having increased dyspnea with exertion in addition in chest tightness/pain that is relived with rest/nitro; follows with [facility] cardiology and they told him to come to the ED. Results & Data Results & Data ([facility]) Vital Signs (Past 12 Hours) Vital Signs Temp Pulse Pulse Resp BP BP Pulse Ox 11/29/21 02:55 36.5 C 67 18 124/68 97 11/29/21 00:35 65 11/29/21 00:35 36.5 C 18 143/84 H 96 11/29/21 00:35 11/28/21 22:30 60 17 133/65 93 11/28/21 22:00 60 19 137/75 96 11/28/21 21:30 60 18 126/66 96 11/28/21 21:00 76 23 122/68 96 11/28/21 20:30 76 23 112/65 97 11/28/21 20:00 60 16 115/58 L 98 11/28/21 19:30 60 15 109/62 99 11/28/21 19:00 60 23 124/58 L 96 11/28/21 18:45 60 18 97 11/28/21 18:45 129/64 11/28/21 18:45 61 16 94 11/28/21 18:45 36.4 C L 68 16 129/64 95 O2 Del Method 11/29/21 02:55 Room Air 11/29/21 00:35 11/29/21 00:35 Room Air 11/29/21 00:35 Room Air 11/28/21 22:30 Room Air 11/28/21 22:00 Room Air 11/28/21 21:30 Room Air 11/28/21 21:00 Room Air 11/28/21 20:30 Room Air 11/28/21 20:00 Room Air 11/28/21 19:30 Room Air 11/28/21 19:00 Room Air 11/28/21 18:45 11/28/21 18:45 11/28/21 18:45 Room Air 11/28/21 18:45 Room Air (1) Chest pain Chest pain type: unspecified Qualified Code(s): R07.9 - Chest pain, unspecified
[2021-11-29] MEDS ORDERED: DOCUSATE SODIUM 100 MG CAP PO PRN (07:07)
[2021-11-29 07:57] LABS: Hematocrit (blood only) 36.7 % (40.1-51.0); Hemoglobin 12.8 g/dl (14.0-18.0); Mean Corpuscular Hemoglobin 30.2 pg (25.0-34.0); Mean Corpuscular Hgb Conc 34.9 g/dL (32.0-36.0); Mean Corpuscular Volume 86.6 fL (80.0-100.0); Mean Platelet Volume 10.4 fL (9.4-12.4); Platelet Count 112 K/uL (130-400); RDW Coefficient of Variation 12.8 % (11.5-14.5); RDW Standard Deviation 39.8 fL (36.4-46.3); Red Blood Count 4.24 M/uL (4.63-6.08)
[2021-11-29 08:26] LABS: BUN Creatinine Ratio 14.4 (10-20); Calcium 9.3 mg/dl (8.5-10.1); Creatinine Clr Calc Pharmacy 37.5 ml/min; Est GFR (African American) 57.8 ml/min; Est GFR (Non-African American) 49.9 ml/min
[2021-11-29] MEDS ORDERED: METOPROLOL SUCC 25MG EXT REL TAB PO SCH (09:00)
[2021-11-29] MEDS ORDERED: LANTUS PER UNIT CHARGE SQ SCH (09:00)
[2021-11-29] MEDS ORDERED: GABAPENTIN 600 MG TAB PO SCH (09:00)
[2021-11-29] MEDS ORDERED: CLOPIDOGREL BISULFATE 75 MG TAB PO SCH (09:00)
[2021-11-29] MEDS ORDERED: ISOSORBIDE MONO EXTENDED REL 30 MG TABCR PO SCH (09:00)
[2021-11-29] MEDS: CARBIDOPA/LEVODOPA 25/100MG TAB PO SCH ×2 (09:06→14:13)
[2021-11-29] MEDS: INSULIN ASPART PER UNIT SC SCH ×2 (09:06→12:14)
[2021-11-29] MEDS ORDERED: amLODIPine BESYLATE 5 MG TAB PO SCH (09:40)
--- NOTE | 2021-11-29 09:41 | Cardiology Consultation ---
Date of Consultation November 29, 2021 History of Present Illness Reason for Consultation: Angina in a patient with known coronary artery disease with recent angioplasty and stenting of the LAD diagonal and circumflex in May 2021 Attending Physician: Art Aldridge MD History of Present Illness Ze notes that he had done well up until about a week ago. He then started noticing more of his typical anginal symptoms. The episodes that he is most recently noticed are more shortness of breath and he has not had the typical chest tightness or chest pressure. He had an episode yesterday of the brought in the hospital as he had some shortness of breath and some left shoulder discomfort. He notes walking to the mailbox which is about 3 car lengths he has some mild shortness of breath on the return trip. Yesterday he had an episode sitting he took 4 sublingual nitroglycerin and and then his symptoms resolved. He denies any GERD symptoms on a regular basis and does not wake up with a hoarse voice. Denies any lightest dizziness presyncope syncope. He has no lower extremity edema. He denies any symptoms of claudication. No palpitations or fluttering or feeling his heart racing. Denies any bleeding bruising dark stools or black stools. He denies a cough fevers chills or sweats. He denies any recent COVID exposure and his COVID test here was negative. Denies any orthopnea. He denies any heart failure symptoms. The rest of complete review of systems otherwise negative Allergies Allergy/AdvReac Type Severity Reaction Status Date / Time Sulfa (Sulfonamide Allergy Severe SHORTNESS Verified 11/28/21 23:00 Antibiotics) OF BREATH atenolol Allergy Unknown UNKNOWN Verified 11/28/21 23:00 erythromycin base Allergy Unknown Unknown Verified 11/28/21 23:00 prednisone Allergy Unknown Unknown Verified 11/28/21 23:00 ibuprofen AdvReac Intermediate STOMACH Verified 11/28/21 23:00 EROSION naproxen AdvReac Intermediate STOMACH Verified 11/28/21 23:00 EROSION fentanyl AdvReac Mild HICCUPS Verified 11/28/21 23:00 midazolam AdvReac Mild HICCUPS Verified 11/28/21 23:00 Home Medications Medication Instructions Recorded Confirmed Type latanoprost 0.005 % eye drops 1 drp OPB HS 03/01/19 11/28/21 History metoprolol succinate 25 mg 25 mg PO QAM 03/01/19 11/28/21 History tablet,extended release 24 hr simvastatin 40 mg tablet 40 mg PO PM 03/01/19 11/28/21 History timolol maleate 0.5 % eye drops 1 drp OPL QAM 03/01/19 11/28/21 History omega 3 350 mg-dha 235 mg-epa 90 1 cap PO TID 06/18/19 11/28/21 History mg-fish oil 597 mg capsule,delay rel ([place]rest[place]-3) blood sugar diagnostic #10 ea 07/06/19 09/03/21 History carbidopa 25 mg-levodopa 100 mg 0.5 tab PO TID 07/06/19 11/28/21 History tablet citalopram 10 mg tablet (Celexa) 10 mg PO HS 07/06/19 11/28/21 History meclizine 25 mg tablet 25 mg PO TID PRN dizzyness 07/06/19 11/28/21 History metformin 500 mg tablet,extended 1,000 mg PO QDD 07/06/19 11/28/21 History release 24 hr gabapentin 300 mg capsule 600 mg PO BID 10/06/19 11/28/21 History (Neurontin) acetaminophen 500 mg tablet 1,000 mg PO TID 03/06/20 11/28/21 History (Acetaminophen Extra Strength) alendronate 70 mg tablet 70 mg PO WK 03/06/20 11/28/21 History ammonium lactate 12 % topical cream 1 applic topical QAM 03/06/20 11/28/21 History cholecalciferol (vitamin D3) 50 2,000 unit PO QAM 03/06/20 11/28/21 History mcg (2,000 unit) capsule insulin glargine 100 unit/mL (3 15 unit subcut HS 03/06/20 11/28/21 History mL) subcutaneous pen (Basaglar KwikPen U-100 Insulin) bacitracin 500 unit/gram topical 1 applic topical BID #14 grams 06/15/20 11/28/21 Rx ointment clopidogrel 75 mg tablet 75 mg PO DAILY 11/28/21 11/28/21 History isosorbide mononitrate 30 mg 30 mg PO QAM 11/28/21 11/28/21 History tablet,extended release 24 hr nitroglycerin 0.3 mg sublingual 0.3 mg sublingual .PRN/UD PRN 11/28/21 11/28/21 History tablet Chest Pain docusate sodium 100 mg capsule 100 mg PO BID PRN Constipation 11/29/21 11/29/21 History semaglutide 0.25 mg or 0.5 mg (2 0.25 mg subcut WK 11/29/21 11/29/21 History mg/1.5 mL) subcutaneous pen injector (Ozempic) Patient History Medical History Anemia CAD (coronary artery disease) Chronic kidney disease, stage III (moderate) Diabetes mellitus Hypertension Mixed conductive and sensorineural hearing loss of right ear with restricted hearing of left ear Surgical History History of appendectomy History of cardiac cath History of cataract extraction History of knee surgery History of shoulder surgery Family History Father ALS (amyotrophic lateral sclerosis) Congestive heart disease Coronary heart disease Cardiac disorder Hypertension Mother Alzheimer disease Coronary heart disease Cardiac disorder Diabetes Hypertension Other Family history non-contributory Social History Smoking Status: Never smoker Second Hand Exposure: No; Hx Alcohol Use: No Hx Substance Use: No Preferred Language: Albanian Communication Ability: Effective Plaster [employer] Required: No Beliefs That Will Affect Care: Orthodoxy marital status: Single Current Living Situation: Alone Current Living Situation Comment: house current occupational status: retired Feels Safe at Home: Yes Assistive Devices: None Results & Data ([facility]) Vital Signs (Past 12 Hours) Vital Signs Temp Pulse Pulse Resp BP BP Pulse Ox 11/29/21 08:11 36.7 C 65 19 138/77 98 11/29/21 02:55 36.5 C 67 18 124/68 97 11/29/21 00:35 65 11/29/21 00:35 36.5 C 18 143/84 H 96 11/29/21 00:35 11/28/21 22:30 60 17 133/65 93 11/28/21 22:00 60 19 137/75 96 O2 Del Method 11/29/21 08:11 Room Air 11/29/21 02:55 Room Air 11/29/21 00:35 11/29/21 00:35 Room Air 11/29/21 00:35 Room Air 11/28/21 22:30 Room Air 11/28/21 22:00 Room Air Awake alert and oriented x3 is in no acute distress he looks younger than his stated age HEENT: 2+ carotid upstrokes no evidence of carotid bruits Lungs: Clear to auscultation bilaterally no rales rhonchi or wheezing Heart: Regular rate and rhythm no appreciable murmurs rubs or gallops Abdomen: Soft nontender distended positive bowel sounds Extremities: No clubbing cyanosis or edema Psychiatric: His affect appeared appropriate EKG AV paced rhythm Labs troponins are negative His outpatient diagnostic studies were reviewed IMPRESSIONS: 1. Symptoms concerning for recurrent angina 2. Recent cardiac catheterization at [facility] May 2021 with known occlusion of the right coronary artery with a patent vein graft to the RCA; severe in-stent restenosis in the midportion of the proximal LAD stent and severe stenosis of the proximal circumflex 3. During that procedure he underwent angioplasty and stenting of the proximal circumflex; stents were placed in the LAD and the diagonal branch using a crush technique 4. History of hypertrophic cardiomyopathy status post myomectomy History of coronary artery disease x1 6. Hypertension 7. History of diastolic heart failure 8. Chronic kidney disease 9. Dual-chamber pacemaker He is having symptoms of angina. It is no way as severe as what he had prior to his May 2021 intervention. It is quite possible he has in-stent restenosis especially involving the LAD diagonal given the crush technique. We discussed options including medical therapy versus repeat cardiac catheterization. The fact that his troponins are negative or reassuring. This does not represent a non-ST elevation IA. I discussed with him that if you look at medical therapy versus angioplasty and stenting medical therapy is just as effective with regards to long-term outcomes especially if we can improve his anginal symptoms with medicine. He is agreeable as he does not want to proceed with another cardiac catheterization unless he does not have a choice. We discussed adding amlodipine 2 and half milligrams daily to his medical regimen. He will remain on Imdur 30 mg daily. We will also add Ranexa 500 mg twice daily. Given the concerns of the interaction between simvastatin and both a calcium channel sina as well as the potential for QT prolongation associated with Ranexa and simvastatin we will stop his simvastatin and also to switch him over to Crestor 10 mg daily when he is discharged he should not go home on simvastatin and should remain on Crestor. I ordered his medications this morning. After a couple of hours of having medication on board I would encourage him to walk in the hallway and see how he feels if he is not having any worsening anginal symptoms he can be discharged home. Options as an outpatient include uptitrating his beta-blockers if he has enough blood pressure room or if he has had improvement with Ranexa increasing it to 1000 g twice a day. I discussed that if he were no worsening symptoms next week with continued chest tightness and decline in his functional capacity then we would need to consider repeat cardiac catheterization. He would need to notify us or Dr. Richards or Dr. Estrada who he normally sees. All this was discussed with the patient and he is agreeable.
[2021-11-29] MEDS ORDERED: ROSUVASTATIN CALCIUM 10 MG TAB PO SCH (09:45)
[2021-11-29] MEDS ORDERED: RANOLAZINE 500 MG ER TAB PO SCH (09:45)
--- NOTE | 2021-11-29 13:09 | Electrocardiogram Report ---
Test Reason : Blood Pressure : / mmHG Vent. Rate : 060 BPM Atrial Rate : 060 BPM P-R Int : 178 ms QRS Dur : 196 ms QT Int : 474 ms P-R-T Axes : 000 267 079 degrees QTc Int : 474 ms AV dual-paced rhythm Abnormal ECG When compared with ECG of 16-NOV-2020 10:51, Vent. rate has decreased BY 3 BPM Confirmed by Gabriel Luna ([id number]) on 11/29/2021 1:08:46 PM Referred By: REFERRED SELF Confirmed By:Gabriel Luna
--- NOTE | 2021-11-29 15:04 | Discharge Summary ---
Date of Service November 29, 2021 Admission HPI Per Admitting Provider Pt is an 80 yo male with an extensive cardiac history including hypertrophic cardiomyopathy s/p myomectomy, CAD, CO s/p CABG and stenting in the late with most recent stents in 05/2021, dual pacemaker/defibrillator, CHF, HLD, HTN, DM, parkinson's disease, and CKD3 presenting with increased chest tightness, SOB, and left shoulder pain over the last few days. Pt explains that about a week ago he noticed increased shortness of breath when walking up hills. A few days later he noticed chest tightness and the onset of dull left shoulder pain. He began to take his nitro more often throughout the day to relieve this pain (3-4 times per day). The chest tightness/pain is relieved with rest and/or nitro use. He contacted his doctor in [place] who did his most recent stents and they advised him to come to the ER. Pt had his first round of stenting in the late . His most recent stents were placed in 05/2021 after experiencing exertional symptoms. Coronary angiography at that time revealed restenosis of mid LAD stent, complete occlusion of the RCA, and 80% stenosis of the proximal left circumflex. He tells me they replaced two of the previous stents from the and adding an additional two (for a total of four stents). He has a stent in the proximal ostial circumflex, mid LAD, and two in the second diagonal bifurcation. He completed cardiac rehab but tells me that he feels he hasn't been keeping up with it. Since the stents, he has been taking aspirin twice a day and plavix once a day. He also explains that he had a myomectomy done (open) d/t the hypertrophic cardiomyopathy where they also performed a CABG (unplanned). In the ER, his vitals were stable and WNL. CBC showed anemia with Hgb of 11.6 and thrombocytopenia at 113. Electrolytes normal. Trop neg at 9.8. PT/INR WNL. CXR showed cardiomegaly but no acute processes. EKG showed a dual AV paced rhythm with no abnormalities. Admission Exam Per Admitting Provider Constitutional: NAD, vitals WNL. Eyes: PERRLA. Conjunctivae normal. ENMT: TM normal. Nonerythematous oropharynx with no lesions. Respiratory: CTA bilaterally. Non labored breathing. No rhonchi, wheezing, or crackles. Cardiovascular: RRR. No murmurs noted. No LE edema. Peripheral pulses 2+. Gastrointestinal (Abdomen): Nontender, +BS. No masses noted. Skin: No rashes or skin lesions noted. Sternotomy scar and defibrillator insertion scar visualized. Neurologic: Sensation grossly intact. No FND appreciated. Psychiatric: Speech of normal pace and content. Mood and affect congruent. Principal Diagnosis Angina Discharge Exam Constitutional: well-appearing, no acute distress HEENT: NCAT, no conjunctival injection CV: regular rhythm, no murmur appreciated, extremities well-perfused, no LE edema Resp: CTABL, no wheezes/rales/rhonchi appreciated, no increased work of breathing GI: soft, nondistended, nontender, BS normoactive MSK: no gross deformities appreciated Skin: warm, dry, no rash appreciated Neuro: alert, oriented, no focal neurologic deficit appreciated Discharge Data Allergies Allergy/AdvReac Type Severity Reaction Status Date / Time Sulfa (Sulfonamide Allergy Severe SHORTNESS Verified 11/28/21 23:00 Antibiotics) OF BREATH atenolol Allergy Unknown UNKNOWN Verified 11/28/21 23:00 erythromycin base Allergy Unknown Unknown Verified 11/28/21 23:00 prednisone Allergy Unknown Unknown Verified 11/28/21 23:00 ibuprofen AdvReac Intermediate STOMACH Verified 11/28/21 23:00 EROSION naproxen AdvReac Intermediate STOMACH Verified 11/28/21 23:00 EROSION fentanyl AdvReac Mild HICCUPS Verified 11/28/21 23:00 midazolam AdvReac Mild HICCUPS Verified 11/28/21 23:00 Consultations 11/28/21 21:00 ED Decision to Admit Stat 11/29/21 01:29 Consult Cardiology Routine Hospital Course (1) Chest pain: Pt is an 80 yo male with an extensive cardiac history including hypertrophic cardiomyopathy s/p myomectomy, CAD, CO s/p CABG and stenting in the late with most recent stents in 05/2021, dual pacemaker/defibrillator, CHF, HLD, HTN, DM, parkinson's disease, and CKD3 presenting with increased chest tightness, SOB, and left shoulder pain over the last few days. Chest pain/tightness - extensive cardiac hx, takes isosorbide mononitrate 30 mg daily, metoprolol succinate 25 mg daily - CXR showed cardiomegaly but neg for acute process - EKG showed AV paced rhythm with no abnormalities - 1st trop neg at 9.8, 2nd=10.0, 3rd= 11.4 He was seen by cardiology and they discussed medical treatment vs repeat catheterization. They felt that medical therapy versus angioplasty and stenting medical therapy is just as effective with regards to long-term outcomes. He was started on amlodipine 2.5, Ranexa 500 and simvastatin was switch to Crestor 10mg because of risk for interaction and QT prolongation. He tolerated these medications and was able to walk the hallways without chest pain prior to discharge. Could consider uptitrating his beta-blockers if he has enough blood pressure room or if he has had improvement with Ranexa increasing it to 1000 g twice a day as an outpatient. CAD/HLD - switched from simvastatin to 10mg Crestor HTN - well controlled on current regimen Thrombocytopenia - Chronic; appears baseline around 100 since 2017 - Plt at 113 on admission Normocytic Anemia - Hgb at 11.6 - baseline appears to be 10-12 - no signs of bleeding DM - home regimen of metformin 1000mg daily, insulin glargine 5 unit HS, and exenatide 2mg weekly - managed with SSI, will be discharged on his home medications (2) Thrombocytopenia: (3) Chronic kidney disease, stage III (moderate): (4) Diabetes mellitus: (5) Hypertrophic cardiomyopathy: (6) Hypertension: (7) Anemia: Total Time Total Time Spent Total Time Spent (In Minutes): 45 Discharge Plan Discharge Items Patient Disposition: Home - Self-Care Reason For Visit: CHEST PAIN/TIGHTNESS Discharge Diagnosis: Angina Activity: Resume your previous activity Non-emergency contact: Primary Care Provider and Pot Puller Call non-emergency contact if: you have any medication questions and your symptoms worsen Follow-up/Referrals: Jefferson Suarez DO [Primary Care Provider] - Fortunato Estrada [Family Provider] - Diet: Regular Addtl Attending Provider Instructions: You were admitted to the hospital for chest tightness with left shoulder pain and shortness of breath. We checked your cardiac enzymes and an ECG which did not indicate any new damage to your heart. The pad cutter saw you while you were here. They discussed with you the option of treating with medications vs a repeat cardiac catheterization, but ultimately decided the best option at this time was to treat medically. We started amlodipine at 2.5 mg and Ranexa 500mg two times per day. Given the interactions between simvastatin and calcium channel blockers (amlodipine), which could cause prolongation of your heart rhythm(QTc), we are going to switch your cholesterol lower medication to Crestor 10mg. Stop taking the simvastatin and start taking the Crestor. A discharge summary will be sent to your primary care physician to ensure continuity of care. Please bring this discharge summary with you to your next office appointment so that your provider can review it at that time. Follow-up appointments: We have requested a follow-up appointment with your primary care physician adn pad cutter within one week of discharge. Please call their office if you do not hear from them. CONTACT YOUR PRIMARY CARE PROVIDER if you experience any of the following: Difficulty following your treatment plan, or difficulty taking medications CALL 911 OR GO TO THE EMERGENCY DEPARTMENT if you experience any of the following: Shortness of breath Severe chest pain, or chest pain that radiates (moves) to your jaw or arm Pending Studies at Discharge: No Stand-Alone Forms: My [facility] Medications and DC Order Prescriptions: New amlodipine [Norvasc] 5 mg Tablet 2.5 mg PO QAM 30 Days Qty: 15 0RF rosuvastatin 10 mg Tablet 10 mg PO QAM 30 Days Qty: 30 0RF ranolazine [Ranexa] 500 mg Tablet Extended Release 12 Hr 500 mg PO BID 30 Days Qty: 60 0RF Continued meclizine 25 mg tablet 25 mg PO TID PRN (Reason: dizzyness) metformin 500 mg tablet extended release 24 hr 1,000 mg PO QDD carbidopa-levodopa 25-100 mg tablet 0.5 tab PO TID citalopram [Celexa] 10 mg tablet 10 mg PO HS (DME) blood sugar diagnostic Strip See Rx Instructions .ROUTE .MEDSUPPLY Qty: 10 Rx Instructions: As directed metoprolol succinate 25 mg tablet extended release 24 hr 25 mg PO QAM latanoprost 0.005 % drops 1 drp OPB HS timolol maleate 0.5 % drops 1 drp OPL QAM [place]-3 350 mg-235 mg- 90 mg-597 mg Capsule,Delayed Release(Dr/Ec) 1 cap PO TID gabapentin [Neurontin] 300 mg capsule 600 mg PO BID insulin glargine [Basaglar KwikPen U-100 Insulin] 100 unit/mL (3 mL) insulin pen 15 unit SUBCUT HS alendronate 70 mg tablet 70 mg PO WK Rx Instructions: TAKE THIS MED EVERY FRIDAY. BEGIN 12/04/21: TAKE FOSAMAX EVERY OTHER WEEK ( SKIP FOSAMAX ON 12/04/21, TAKE FOSAMAX THE FOLLOWING FRIDAY, ETC ). cholecalciferol (vitamin D3) 50 mcg (2,000 unit) capsule 2,000 unit PO QAM acetaminophen [Acetaminophen Extra Strength] 500 mg Tablet 1,000 mg PO TID ammonium lactate 12 % Cream 1 applic TOPICAL QAM Rx Instructions: apply and rub in well toes bacitracin 500 unit/gram ointment 1 applic topical BID Qty: 14 0RF nitroglycerin 0.3 mg tablet, sublingual 0.3 mg sublingual .PRN/UD PRN (Reason: Chest Pain) Rx Instructions: NEEDED FOR CHEST PAIN : ONE TABLET UNDER THE TONGUE EVERY 5 MINUTES UP TO THREE DOSES. isosorbide mononitrate 30 mg tablet extended release 24 hr 30 mg PO QAM clopidogrel 75 mg tablet 75 mg PO DAILY docusate sodium 100 mg capsule 100 mg PO BID PRN (Reason: Constipation) Ozempic 0.25 mg or 0.5 mg(2 mg/1.5 mL) pen injector 0.25 mg SUBCUT WK Rx Instructions: friday Discontinued simvastatin 40 mg tablet 40 mg PO PM Discharge Orders: Discharge Order (Routine); Ordered 11/29/21 Ordered By: Yarely Jimenez Admission Data Admit Date/Time: 11/28/21 23:07 Attending Provider: Art Aldridge Admit Provider: Eve Dickerson Primary Care Provider: Jefferson Suarez Other Providers: Ximena Lyons ; Anthony Helton Other Interventions: Discharge Summary Assessment (RN) Last Done: 11/29/21 15:07 Supervising Physician Co-Signing Physician Notes Attending attestation Pt seen and examined in concert with Dr. Jimenez. In agreement with the documented findings as noted in the resident documentation with any exceptions or additions as noted here. Chest pain resolved prior to admission without recurrence of pain, shortness of breath or other concurrent symptom. VS, nursing notes, labs, imaging and ED documentation reviewed. On examination, S1/S2 nl RRR no MCG. CTAB. Abd NT/ND BS+ve. Chest pain in the setting of complex cardiac disease - cardiology consult - addition of amlodipine and Ranexa and resume home regimen with close follow up with PCP and cardiology. HTN - well controlled and BP tolerating new medications well Else see resident documentation as noted. Total attending physician time spent with this patient's care on the day of discharge: 45 minutes. Resident Activity Tracking Resident Involvement: Resident Care Provided Care Provided: Adult [facility]
[2021-11-29] MEDS ORDERED: CITALOPRAM 20 MG TAB PO SCH (21:00)
[2021-11-29] MEDS ORDERED: SIMVASTATIN 40 MG TAB PO SCH (21:00)
[2021-12-04] MEDS ORDERED: ALENDRONATE SODIUM 70 MG TAB PO SCH (06:30)
== END 2021-11-29 15:45 | disposition home or self-care (01) | DRG 311 ==
LOC: ED 18:37 → SUATTDRO 23:07 → 2N 23:07

== ENCOUNTER 2022-02-05 21:15 | Inpatient (IN) ==
[2022-02-05 21:57] LABS: INR 1.1 (0.9-1.1); Partial Thromboplastin Time 26.4 Seconds (21.0-31.0); Prothrombin Time 11.7 Seconds (9.0-12.0)
[2022-02-05 22:06] LABS: BUN Creatinine Ratio 16.2 (10-20); Calcium 9.5 mg/dl (8.5-10.1); Creatinine Clr Calc Pharmacy 34.3 ml/min; Est GFR (African American) 52.6 ml/min; Est GFR (Non-African American) 45.4 ml/min; Potassium 4.4 mmol/L (3.5-5.1)
[2022-02-05 22:07] LABS: Basophils # (auto) 0.02 K/uL (0-0.2); Basophils % (auto) 0.3 %; Eosinophils # (auto) 0.27 K/uL (0-0.50); Eosinophils % (auto) 4.7 %; Hematocrit (blood only) 34.8 % (40.1-51.0); Immature Granulocytes # (auto) 0.01 K/uL (0.00-0.02); Immature Granulocytes % (auto) 0.2 %; Lymphocytes # (auto) 1.42 K/uL (1.2-3.4); Lymphocytes % (auto) 24.7 %; Mean Corpuscular Hemoglobin 31.2 pg (25.0-34.0); Mean Corpuscular Hgb Conc 34.5 g/dL (32.0-36.0); Mean Corpuscular Volume 90.4 fL (80.0-100.0); Mean Platelet Volume 10.6 fL (9.4-12.4); Monocytes % (auto) 10.4 %; Neutrophils # (auto) 3.44 K/uL (1.4-6.5); Neutrophils % (auto) 59.7 %; Platelet Count 111 K/uL (130-400); Platelet Estimate Decreased (Normal); RDW Coefficient of Variation 13.7 % (11.5-14.5); RDW Standard Deviation 45.4 fL (36.4-46.3); Red Blood Count 3.85 M/uL (4.63-6.08); White Blood Count 5.76 K/ul (4.8-10.8)
[2022-02-05 22:29] LABS: Troponin I High Sensitivity 78.8 pg/ml (0-20)
[2022-02-05] MEDS ORDERED: ASPIRIN CHEW 324 MG PO STA (22:47)
--- NOTE | 2022-02-05 23:00 | History & Physical Report ---
Date of Service February 05, 2022 Assessment & Plan (1) Chest pain: Plan: Unstable angina that has progressed over last several months. Symptoms with any form of ambulation. Currently no chest pain. Was scheduled for [place] [facility] [place], but patient would benefit from inpatient transfer to [facility] to expedite the procedure, given worsening symptoms. - consult [facility] Cardiology (Dr. Helton) - appreciate recs - start Heparin gtt, low dose no bolus - hsTroponin 78.8 at 21:27 - repeat now and again in AM - s/p Asprin 324mg in ED - continue with home ASA 81mg BID - continue home Plavix, Imdur, Ranolazine, Lasix, Metoprolol - s/p 1 inch nitropaste in ED - continue with PRN SL Nitro for chest pain - patient should avoid all ambulation for now - EKG PRN for chest pain (2) CAD (coronary artery disease): Plan: Chronic. Severe multi-vessel disease with occlusion of previous stents per cath earlier this year. TTE with EF 60-65% from 12/2021. Has PPM/ICD in place. - Cardiology consulted as stated above - home meds continued as stated above - consider addition of SARA-I vs ARB if BP allows - defer to PCP/Senior Courtroom Clerk (3) T2DM (type 2 diabetes mellitus): Plan: Chronic, A1c 8.3 on 01/17/2022. Insulin-dependent. - SSI/basal dosing while hospitalized (4) HTN (hypertension): Plan: Chronic. Continue home Metoprolol as stated above. (5) HLD (hyperlipidemia): Plan: Chronic. Continue home Rosuvastatin (6) Peripheral neuropathy: Plan: Chronic, due to diabetes. - continue home Gabapentin (7) Parkinson disease: Plan: Chronic. - continue home Sinemet (8) Depression: Plan: Chronic. - continue home Celexa (9) GERD (gastroesophageal reflux disease): Plan: Chronic. - continue home Protonix (10) Glaucoma: Plan: Chronic. - continue home eye drops Plan FEN/GI: heart-healthy/DM2 diet DVT Prophylaxis: Heparin gtt Code Status: full code Disposition: med/tele History of Present Illness Chief Complaint: chest pain Primary Care Provider: Jefferson Suarez DO Ze Mansfield is an 81yo male with PMHx significant for CAD (h/o multiple stent placements, most recently in LAD earlier this year, as well as h/o CABG in 2013; s/p PPM/ICD), CKD3 (baseline Cr 1.38), HOCM (EF 60-65% in 12/2021), T2DM with neuropathy (A1c 8.3 on 01/17/2022), h/o CVA, HTN, HLD, KARINE, Parkinson's disease, BPH. glaucoma, depression/anxiety. He was referred to the ED by his Senior Courtroom Clerk, Dr. Helton ([facility]), for progressive left shoulder pain on minimal physical exertion and need for daily SL Nitroglycerin. Patient's pain resolves with rest and nitroglycerin. Of note patient was evaluated at [facility] [place] shortly after heart catheterization earlier in December had showed progressive severe multi-vessel CAD with stenosis of previously stented vessels. He was recommended to undergo CABG and was scheduled as an outpatient. Was set to have this done in several week's time but given progressive symptoms was recommended by Dr. Helton to come to [facility] ED with plans for possible inpatient transfer to [facility]. Patient denies chest pain since arrival in the hospital. He is a never smoker and does not drink alcohol. He is proficient in ADLs/iADLs and lives In the ED the patient was afebrile and hemodynamically stable on room air. Labs significant for hsTroponin 78.8, Hgb 12 and plts 111 (chronic baseline), Cr 1.42 (~baseline). CXR unremarkable. Patient did experience some left-sided shoulder pain (his typical location of angina as of recently) when he stood up and walked to a wheelchair to go to Radiology for CXR, but this resolved with nitropaste. Patient was also given Aspirin 324mg in ED. Allergies Allergy/AdvReac Type Severity Reaction Status Date / Time atenolol Allergy Rash Verified 02/05/22 23:06 fentanyl AdvReac hiccups Verified 02/05/22 23:06 ibuprofen [From Motrin] AdvReac stomach Verified 02/05/22 23:06 pain lisinopril AdvReac Cough Verified 02/05/22 23:06 midazolam [From Versed] AdvReac uncontrolled Verified 02/05/22 23:06 hiccups naproxen [From Naprelan] AdvReac stomach Verified 02/05/22 23:06 erosion prednisone AdvReac stomach Verified 02/05/22 23:06 pain Sulfa (Sulfonamide AdvReac sob Verified 02/05/22 23:06 Antibiotics) Home Medications Medication Instructions Recorded Confirmed Type acetaminophen 500 mg tablet 1,000 mg PO TID PRN Pain 02/05/22 02/05/22 History (Tylenol Extra Strength) alendronate 70 mg tablet 70 mg PO WE 02/05/22 02/05/22 History aspirin 81 mg chewable tablet 81 mg PO BID 02/05/22 02/05/22 History betamethasone dipropionate 0.05 % 1 applic topical BID 02/05/22 02/05/22 History topical cream carbidopa 25 mg-levodopa 100 mg 0.5 tab PO TID 02/05/22 02/05/22 History tablet cholecalciferol (vitamin D3) 50 50 mcg PO DAILY 02/05/22 02/05/22 History mcg (2,000 unit) tablet (Vitamin D3) citalopram 10 mg tablet 10 mg PO DAILY 02/05/22 02/05/22 History clopidogrel 75 mg tablet 75 mg PO DAILY 02/05/22 02/05/22 History clotrimazole 1 % topical cream 1 applic topical BID 02/05/22 02/05/22 History diclofenac sodium 1 % topical gel 0 g topical QID PRN Pain 02/05/22 02/05/22 History docusate sodium 100 mg capsule 100 mg PO BID PRN Constipation 02/05/22 02/05/22 History (Colace) furosemide 20 mg tablet 20 mg PO DAILY 02/05/22 02/05/22 History gabapentin 300 mg capsule 300 mg PO TID 02/05/22 02/05/22 History insulin glargine 100 unit/mL (3 0 unit subcut DAILY 02/05/22 02/05/22 History mL) subcutaneous pen (Basaglar KwikPen U-100 Insulin) isosorbide mononitrate 60 mg 60 mg PO DAILY 02/05/22 02/05/22 History tablet,extended release 24 hr latanoprost 0.005 % eye drops 1 drp OPB HS 02/05/22 02/05/22 History meclizine 25 mg tablet 25 mg PO TID PRN dizzyness 02/05/22 02/05/22 History metformin 500 mg tablet,extended 1,000 mg PO DAILY 02/05/22 02/05/22 History release 24 hr metoprolol succinate 25 mg 25 mg PO DAILY 02/05/22 02/05/22 History tablet,extended release 24 hr mupirocin 2 % topical ointment 1 applic topical BID PRN flare up 02/05/22 02/05/22 History nitroglycerin 0.3 mg sublingual 0.3 mg sublingual DIRECTED PRN 02/05/22 02/05/22 History tablet (Nitrostat) .chest pain omega-3 fatty acids 1,000 mg 1,000 mg PO TID 02/05/22 02/05/22 History capsule pantoprazole 40 mg tablet,delayed 40 mg PO DAILY 02/05/22 02/05/22 History release ranolazine 500 mg tablet,extended 500 mg PO BID 02/05/22 02/05/22 History release,12 hr rosuvastatin 10 mg tablet 10 mg PO DAILY 02/05/22 02/05/22 History semaglutide 0.25 mg or 0.5 mg (2 0.25 mg subcut WE 02/05/22 02/05/22 History mg/1.5 mL) subcutaneous pen injector (Ozempic) timolol maleate 0.5 % eye drops 1 drp OPL BID 02/05/22 02/05/22 History Past Med/Surg History Medical History (Updated 02/06/22 @ 00:11 by Jason Phillip MD) CAD (coronary artery disease) Depression GERD (gastroesophageal reflux disease) Glaucoma HLD (hyperlipidemia) HTN (hypertension) Hypertrophic obstructive cardiomyopathy (HOCM) Parkinson disease Peripheral neuropathy T2DM (type 2 diabetes mellitus) Surgical History No pertinent past surgical history Family History (Updated 02/05/22 @ 23:09 by Polo Seth) Other Heart disease Hypertension Social History Smoking Status: Never smoker Hx Alcohol Use: No Hx Substance Use: No Preferred Language: Bolivian Communication Ability: Effective It Field Technician Required: No Beliefs That Will Affect Care: None Current Living Situation: Alone Other Information That Helps Us Care for You: No Feels Safe at Home: Yes Safety Concerns: Feels Safe At This Time Assistive Devices: Glasses Assistive Devices Comment: 2 lower partials Review of Systems Review of Systems: All systems reviewed & are unremarkable except as noted in HPI & below Physical Exam Physical Exam: General: A&Ox3. NAD. Cooperative. HEENT: Atraumatic, normocephalic. Pulm: CTAB A&P. -wheezes, -rales, -rhonchi. Symmetrical chest rise. No increase work of breathing. No respiratory distress. Cardiac: RRR, 2/6 systolic murmur best auscultated at LLSB. Radial pulses intact and symmetrical. Chest: sternotomy scar present. No chest pain reproducible on palpation. Abdominal: soft, non-tender, non-distended, BS x 4 Skin: warm, dry, no rash Results & Data Results & Data ([facility]) Vital Signs (Past 12 Hours) Vital Signs Temp Pulse Resp BP Pulse Ox O2 Del Method 02/05/22 21:41 97 02/05/22 21:25 96 Room Air 02/05/22 21:25 37.2 C 69 12 116/79 96 Room Air Laboratory Results Abnormal lab results 02/05/22 02/05/22 Range/Units 21:27 21:27 RBC 3.85 L (4.63-6.08) M/uL Hgb 12.0 L (14.0-18.0) g/dl Hct 34.8 L (40.1-51.0) % Plt Count 111 L (130-400) K/uL Platelet Estimate Decreased L (Normal) Creatinine 1.42 H (0.6-1.4) mg/dl Glucose 135 H (70-99(Fasting)) mg/dl Troponin I High Sens 78.8 H* (0-20) pg/ml ECG Additional Comments: EKG with paced rhythm, no acute ischemic findings Supervising Physician Co-Signing Physician Notes Patient seen and examined, chart reviewed, case discussed with Dr. Phillip and I agree with the assessment and plan as above. In brief, patient is an 81yo male with extensive history, CAD with multiple stents in place presenting with progressive anginal symptoms. He is being considered for CABG [place] [facility]. Follows with Cardiology, Dr. Helton. Presently with left shoulder discomfort, improved with Nitro Exam is unremarkable. +S1/S2, regular, on m/r/g Lungs CTA Abd soft, NT/ND Ext warm, well perfused No evidence of failure Left shoulder pain improved Labs and images reviewed Assessment/Plan -Telemetry monitoring -Trend troponin -Heparin gtt -Nitro PRN -Cardiology consultation - possible transfer [place] [facility] -Remainder as above Resident Activity Tracking Resident Involvement: Resident Care Provided Care Provided: Adult Hospital Medicine (1) Chest pain Chest pain type: unspecified Qualified Code(s): R07.9 - Chest pain, unspecified
--- NOTE | 2022-02-05 23:11 | Emergency Department Note ---
History of Present Illness General Chief Complaint: Chest Pain Stated Complaint: chest pain Time Seen by Provider: 02/05/22 21:25 History of Present Illness Provider Complaint: chest pain Onset (ago): week(s) Onset (Weeks): 1 Duration: intermittent Onset: during rest Pain Location: substernal Pain Radiation: none Current Pain Intensity: 0 Quality: + aching and + heaviness Relieved By: + nitroglycerin Exacerbated By: + nothing Context: no recent illness, no recent surgery, no recent immobilization, no recent travel, no trauma/injury, no new medications or no history of DVT/PE Associated symptoms: + dyspnea; no nausea, no diaphoresis, no sense of impending doom, no syncope, no palpitations, no fever, no cough or no leg swelling Patient reports he is in need of a CABG and is scheduled to go on at [facility] and was referred here by his associate software engineer at [place] Dr. Helton Home Medications Medication Instructions Recorded Confirmed Type acetaminophen 500 mg tablet 1,000 mg PO TID PRN Pain 02/05/22 02/05/22 History (Tylenol Extra Strength) alendronate 70 mg tablet 70 mg PO WE 02/05/22 02/05/22 History aspirin 81 mg chewable tablet 81 mg PO BID 02/05/22 02/05/22 History betamethasone dipropionate 0.05 % 1 applic topical BID 02/05/22 02/05/22 History topical cream carbidopa 25 mg-levodopa 100 mg 0.5 tab PO TID 02/05/22 02/05/22 History tablet cholecalciferol (vitamin D3) 50 50 mcg PO DAILY 02/05/22 02/05/22 History mcg (2,000 unit) tablet (Vitamin D3) citalopram 10 mg tablet 10 mg PO DAILY 02/05/22 02/05/22 History clopidogrel 75 mg tablet 75 mg PO DAILY 02/05/22 02/05/22 History clotrimazole 1 % topical cream 1 applic topical BID 02/05/22 02/05/22 History diclofenac sodium 1 % topical gel 0 g topical QID PRN Pain 02/05/22 02/05/22 History docusate sodium 100 mg capsule 100 mg PO BID PRN Constipation 02/05/22 02/05/22 History (Colace) furosemide 20 mg tablet 20 mg PO DAILY 02/05/22 02/05/22 History gabapentin 300 mg capsule 300 mg PO TID 02/05/22 02/05/22 History insulin glargine 100 unit/mL (3 0 unit subcut DAILY 02/05/22 02/05/22 History mL) subcutaneous pen (Basaglar MauricePen U-100 Insulin) isosorbide mononitrate 60 mg 60 mg PO DAILY 02/05/22 02/05/22 History tablet,extended release 24 hr latanoprost 0.005 % eye drops 1 drp OPB HS 02/05/22 02/05/22 History meclizine 25 mg tablet 25 mg PO TID PRN dizzyness 02/05/22 02/05/22 History metformin 500 mg tablet,extended 1,000 mg PO DAILY 02/05/22 02/05/22 History release 24 hr metoprolol succinate 25 mg 25 mg PO DAILY 02/05/22 02/05/22 History tablet,extended release 24 hr mupirocin 2 % topical ointment 1 applic topical BID PRN flare up 02/05/22 02/05/22 History nitroglycerin 0.3 mg sublingual 0.3 mg sublingual DIRECTED PRN 02/05/22 02/05/22 History tablet (Nitrostat) .chest pain omega-3 fatty acids 1,000 mg 1,000 mg PO TID 02/05/22 02/05/22 History capsule pantoprazole 40 mg tablet,delayed 40 mg PO DAILY 02/05/22 02/05/22 History release ranolazine 500 mg tablet,extended 500 mg PO BID 02/05/22 02/05/22 History release,12 hr rosuvastatin 10 mg tablet 10 mg PO DAILY 02/05/22 02/05/22 History semaglutide 0.25 mg or 0.5 mg (2 0.25 mg subcut WE 02/05/22 02/05/22 History mg/1.5 mL) subcutaneous pen injector (Ozempic) timolol maleate 0.5 % eye drops 1 drp OPL BID 02/05/22 02/05/22 History Allergies Allergy/AdvReac Type Severity Reaction Status Date / Time atenolol Allergy Rash Verified 02/05/22 23:06 fentanyl AdvReac hiccups Verified 02/05/22 23:06 ibuprofen [From Motrin] AdvReac stomach Verified 02/05/22 23:06 pain lisinopril AdvReac Cough Verified 02/05/22 23:06 midazolam [From Versed] AdvReac uncontrolled Verified 02/05/22 23:06 hiccups naproxen [From Naprelan] AdvReac stomach Verified 02/05/22 23:06 erosion prednisone AdvReac stomach Verified 02/05/22 23:06 pain Sulfa (Sulfonamide AdvReac sob Verified 02/05/22 23:06 Antibiotics) Past Med/Surg History Medical History (Updated 02/06/22 @ 00:11 by Jason Phillip MD) CAD (coronary artery disease) Depression GERD (gastroesophageal reflux disease) Glaucoma HLD (hyperlipidemia) HTN (hypertension) Hypertrophic obstructive cardiomyopathy (HOCM) Parkinson disease Peripheral neuropathy T2DM (type 2 diabetes mellitus) Surgical History No pertinent past surgical history Family History (Updated 02/05/22 @ 23:09 by Polo Seth) Other Heart disease Hypertension Social History Smoking Status: Never smoker Preferred Language: Israeli Feels Safe at Home: Yes Review of Systems A total of 10 systems reviewed and were otherwise negative Physical Exam Vital Signs Vital Signs - 24 hr 02/05/22 21:25 02/05/22 21:25 02/05/22 21:41 Temperature 37.2 C Temperature Source Oral Pulse Rate 69 Pulse Rate [Finger] Respiratory Rate 12 Blood Pressure 116/79 Blood Pressure [Right Arm] Blood Pressure Mean 91 Blood Pressure Mean [Right Arm] Pulse Oximetry 96 96 97 Oxygen Delivery Method Room Air Room Air Sepsis Recent Fever Within 48 Hours No Sepsis New/Unexplained Change in Mental Status N/A Sepsis Action Taken by Nursing No Action Required 02/05/22 23:21 Temperature Temperature Source Pulse Rate Pulse Rate [Finger] 61 Respiratory Rate 20 Blood Pressure Blood Pressure [Right Arm] 133/68 Blood Pressure Mean Blood Pressure Mean [Right Arm] 89 Pulse Oximetry 98 Oxygen Delivery Method Room Air Sepsis Recent Fever Within 48 Hours Sepsis New/Unexplained Change in Mental Status Sepsis Action Taken by Nursing Physical Exam GENERAL: He is oriented to person, place, and time. He appears well-developed and well-nourished. He does not appear distressed. HENT: Exam performed. - Head: Normocephalic and atraumatic. - Right Ear: External ear normal. No mastoid tenderness. - Left Ear: External ear normal. No mastoid tenderness. - Mouth/Throat: The oropharynx is clear and moist. No trismus in the jaw. No dental abscesses or uvula swelling. No oropharyngeal exudate or tonsillar abs cesses. EYES: Conjunctivae and EOM are normal. Pupils are equal, round, and reactive to light. Right eye exhibits no discharge. Left eye exhibits no discharge. No scleral icterus. NECK: Normal range of motion. Neck supple. No JVD present. No spinous process tenderness present. No carotid bruit present. No rigidity. No tracheal deviation and normal range of motion present. No Brudzinski's sign and no Kernig's sign noted. CV: Normal rate, regular rhythm, normal heart sounds and intact distal pulses. There is no peripheral edema. Palpable radial pulses bue. PULM/CHEST: Effort normal and breath sounds normal. No respiratory distress. No stridor. He has no wheezes. He has no rales. - Chest Wall: He exhibits no tenderness. ABD: The abdomen is soft. Bowel sounds are normal. He has no distension. No mass is present. There is no tenderness. There is no rebound, no guarding, no Rosario's sign and no tenderness at McBurney's point. Rovsig negative. MUSC/SKEL: Normal range of motion. There is no peripheral edema, tenderness or deformity. LYMPH: No cervical adenopathy. NEURO: He is alert and oriented to person, place, and time. He has normal strength. No cranial nerve deficit or sensory deficit. Coordination and gait normal. GCS eye subscore is 4. GCS verbal subscore is 5. GCS motor subscore is 6. Cerebellar tests wnl. SKIN: Skin is warm and dry. He is not diaphoretic. PSYCH: He has a normal mood and affect. Behavior is normal. Judgment and thought content normal. Course Course 2124: The patient was evaluated in room C12. A complete history and physical exam was performed Cardiac monitoring: An order was placed for continuous cardiac monitoring. The monitor shows a rate of 70 with paced rhythm 2250: Vital signs stable. Labs show an elevated troponin of 78.8. Chest x-ray shows no acute infiltrate. Patient will be admitted to the [facility]ist team Dr. Lyons notified. Administered Medications Discontinued Medications Aspirin (Aspirin Chew 324 Mg) 324 mg PO NOW STA Stop: 02/05/22 22:48 Last Admin: 02/05/22 23:09 Dose: 324 mg Documented By: ADELA Nitroglycerin (Nitroglycerin 2% Ointment 30gm Tube) 1 inch EXT NOW ONE Stop: 02/05/22 23:55 Last Admin: 02/05/22 23:59 Dose: 1 inch Documented By: ADELA Medical Decision Making Laboratory Data Result diagrams: 02/05/22 21:27 02/05/22 21:27 Labs: Lab Results 02/05/22 02/05/22 02/05/22 Range/Units 21:27 21:27 21:27 WBC 5.76 (4.8-10.8) K/ul RBC 3.85 L (4.63-6.08) M/uL Hgb 12.0 L (14.0-18.0) g/dl Hct 34.8 L (40.1-51.0) % MCV 90.4 (80.0-100.0) fL MCH 31.2 (25.0-34.0) pg MCHC 34.5 (32.0-36.0) g/dL RDW Std Deviation 45.4 (36.4-46.3) fL RDW Coeff of Tobin 13.7 (11.5-14.5) % Plt Count 111 L (130-400) K/uL MPV 10.6 (9.4-12.4) fL Immature Gran % (Auto) 0.2 % Neut % (Auto) 59.7 % Lymph % (Auto) 24.7 % [place] % (Auto) 10.4 % Eos % (Auto) 4.7 % Baso % (Auto) 0.3 % Neut # (Auto) 3.44 (1.4-6.5) K/uL Lymph # (Auto) 1.42 (1.2-3.4) K/uL [place] # (Auto) 0.60 (0.24-0.82) K/uL Eos # (Auto) 0.27 (0-0.50) K/uL Baso # (Auto) 0.02 (0-0.2) K/uL Immature Gran # (Auto) 0.01 (0.00-0.02) K/uL Platelet Estimate Decreased L (Normal) PT 11.7 (9.0-12.0) Seconds INR 1.1 (0.9-1.1) APTT 26.4 (21.0-31.0) Seconds PTT Ratio 1.0 Sodium 138 (136-145) mmol/L Potassium 4.4 (3.5-5.1) mmol/L Chloride 104 (98-107) mmol/L Carbon Dioxide 29 (21-32) mmol/L Anion Gap 5 (3-11) BUN 23 (6-23) mg/dl Creatinine 1.42 H (0.6-1.4) mg/dl Est Cr Clr Drug Dosing 34.3 ml/min Est GFR ( Amer) 52.6 ml/min Est GFR (Non-Af Amer) 45.4 ml/min BUN/Creatinine Ratio 16.2 (10-20) Glucose 135 H (70-99(Fasting)) mg/dl Calcium 9.5 (8.5-10.1) mg/dl Troponin I High Sens 78.8 H* (0-20) pg/ml Lipase 42 (11-82) U/L SARS-CoV-2, RNA, NAAT (NEGATIVE) 02/05/22 Range/Units 22:00 WBC (4.8-10.8) K/ul RBC (4.63-6.08) M/uL Hgb (14.0-18.0) g/dl Hct (40.1-51.0) % MCV (80.0-100.0) fL MCH (25.0-34.0) pg MCHC (32.0-36.0) g/dL RDW Std Deviation (36.4-46.3) fL RDW Coeff of Tobin (11.5-14.5) % Plt Count (130-400) K/uL MPV (9.4-12.4) fL Immature Gran % (Auto) % Neut % (Auto) % Lymph % (Auto) % [place] % (Auto) % Eos % (Auto) % Baso % (Auto) % Neut # (Auto) (1.4-6.5) K/uL Lymph # (Auto) (1.2-3.4) K/uL [place] # (Auto) (0.24-0.82) K/uL Eos # (Auto) (0-0.50) K/uL Baso # (Auto) (0-0.2) K/uL Immature Gran # (Auto) (0.00-0.02) K/uL Platelet Estimate (Normal) PT (9.0-12.0) Seconds INR (0.9-1.1) APTT (21.0-31.0) Seconds PTT Ratio Sodium (136-145) mmol/L Potassium (3.5-5.1) mmol/L Chloride (98-107) mmol/L Carbon Dioxide (21-32) mmol/L Anion Gap (3-11) BUN (6-23) mg/dl Creatinine (0.6-1.4) mg/dl Est Cr Clr Drug Dosing ml/min Est GFR ( Amer) ml/min Est GFR (Non-Af Amer) ml/min BUN/Creatinine Ratio (10-20) Glucose (70-99(Fasting)) mg/dl Calcium (8.5-10.1) mg/dl Troponin I High Sens (0-20) pg/ml Lipase (11-82) U/L SARS-CoV-2, RNA, NAAT NEGATIVE (NEGATIVE) Imaging Data Chest x-ray: My impression: Pacemaker in place. Chest x-ray negative. Airway clear. No pneumothorax. No consolidation. No cardiomegaly or cephalization.. No free air under the diaphragm. No fractures of the skeletal structures. ECG Data Additional Comments: Paced rhythm with a rate of 73. MO 176 QRS 180 QTC 515. No ectopy. MDM Narrative Vital signs stable. Labs show an elevated troponin of 78.8. Chest x-ray shows no acute infiltrate. Patient will be admitted to the [facility] hospitalist team Dr. Lyons notified. Impression & Plan Chest pain, Elevated troponin Discharge Plan Visit Data Chief Complaint: Chest Pain Stated Complaint: chest pain ED Provider: Polo Seth Discharge Problem: Chest pain, Elevated troponin Patient Disposition: Being Evaluated by Hospitalist : Chest pain Qualifiers: Chest pain type: unspecified Qualified Code(s): R07.9 - Chest pain, unspecified
[2022-02-05] MEDS ORDERED: NITROGLYCERIN 2% OINTMENT 30GM TUBE EXT ONE (23:54)
[2022-02-06] MEDS ORDERED: HEPARIN SODIUM/DEXTROSE 25,000 UNITS/500 ML BAG IV SCH (00:35)
[2022-02-06] MEDS ORDERED: ACETAMINOPHEN 500 MG TAB PO PRN (00:35)
[2022-02-06] MEDS ORDERED: GLUCOSE 40% GEL 15 GM TUBE PO PRN (00:35)
[2022-02-06] MEDS ORDERED: GLUCOSE 10 TAB/TUBE PO PRN (00:35)
[2022-02-06] MEDS ORDERED: ONDANSETRON INJ 2 MG/ML 2 ML VIAL IV PRN (00:35)
[2022-02-06] MEDS ORDERED: GLUCAGON FOR INJ 1 MG VIAL SQ PRN (00:35)
[2022-02-06] MEDS ORDERED: NITROGLYCERIN SL 0.4 MG/TAB TAB SL PRN (00:35)
[2022-02-06] MEDS ORDERED: DEXTROSE 50% 50 ML SYRINGE IV PRN (00:35)
[2022-02-06] MEDS ORDERED: CARBOHYDRATES FOR HYPOGLYCEMIA PO PRN (00:35)
[2022-02-06] MEDS ORDERED: DOCUSATE SODIUM 100 MG CAP PO PRN (00:35)
[2022-02-06] MEDS ORDERED: Heparin IV Adult Wt-Based Low-Dose *NO* Bolus Protocol IV STA (00:50)
--- NOTE | 2022-02-06 01:28 | Billing Data ---
Date of Service February 06, 2022 Coding Level of Care Code 91867 Initial Inpt Care Lvl 3
[2022-02-06] MEDS ORDERED: ALENDRONATE SODIUM 70 MG TAB PO SCH (06:30)
--- NOTE | 2022-02-06 06:48 | XRay Report ---
XR chest 2V PA/lateral CLINICAL HISTORY: Atypical chest pain. COMPARISON STUDY: No previous studies for comparison. FINDINGS: Left pacer/AICD is in place. There are median sternotomy wires. Lung volumes are normal. Mohini ngs are clear. Several suspected calcified right lung nodules measure up to 7 mm. There is no pneumot horax or pleural effusion. There is mild cardiomegaly. Mediastinal contours are normal. There is no e vidence for pulmonary edema. IMPRESSION: No acute cardiopulmonary findings. ACT 112: Negative or not required by law. Electronically signed by: Sp Rios M.D. 02/06/2022 6:46 AM
--- NOTE | 2022-02-06 07:44 | Hospitalist Progress Note ---
Date of Service February 06, 2022 Assessment & Plan Admission and Anticipated Discharge Date Admission Date: February 06, 2022 Results & Data Results & Data ([facility]) Vital Signs (Past 12 Hours) Vital Signs Temp Pulse Pulse Resp BP BP BP 02/06/22 07:20 36.4 C L 60 20 99/55 L 02/06/22 04:10 36.8 C 60 18 135/78 02/06/22 00:56 36.5 C 79 19 146/76 H 02/06/22 00:56 02/05/22 23:21 61 20 133/68 02/05/22 21:41 02/05/22 21:25 02/05/22 21:25 37.2 C 69 12 116/79 Pulse Ox Pulse Ox O2 Del Method O2 Del Method 02/06/22 07:20 98 Room Air 02/06/22 04:10 99 Room Air 02/06/22 00:56 99 Room Air 02/06/22 00:56 99 Room Air 02/05/22 23:21 98 Room Air 02/05/22 21:41 97 02/05/22 21:25 96 Room Air 02/05/22 21:25 96 Room Air PG Care Time/CCT Total # of Minutes Spent Total Time Spent with Patient: Total time spent is greater than 50% in coordination of care (as documented) at patient's floor/unit and/or counseling patient: Coding
[2022-02-06 08:10] LABS: Hematocrit (blood only) 31.9 % (40.1-51.0); Hemoglobin 11.1 g/dl (14.0-18.0); Mean Corpuscular Hemoglobin 31.1 pg (25.0-34.0); Mean Corpuscular Hgb Conc 34.8 g/dL (32.0-36.0); Mean Corpuscular Volume 89.4 fL (80.0-100.0); Mean Platelet Volume 10.2 fL (9.4-12.4); Platelet Count 98 K/uL (130-400); RDW Coefficient of Variation 13.7 % (11.5-14.5); RDW Standard Deviation 44.7 fL (36.4-46.3); Red Blood Count 3.57 M/uL (4.63-6.08); White Blood Count 6.14 K/ul (4.8-10.8)
[2022-02-06 08:12] LABS: Basophils # (auto) 0.02 K/uL (0-0.2); Basophils % (auto) 0.3 %; Eosinophils # (auto) 0.35 K/uL (0-0.50); Eosinophils % (auto) 5.7 %; Immature Granulocytes # (auto) 0.01 K/uL (0.00-0.02); Immature Granulocytes % (auto) 0.2 %; Lymphocytes # (auto) 1.88 K/uL (1.2-3.4); Lymphocytes % (auto) 30.6 %; Monocytes # (auto) 0.61 K/uL (0.24-0.82); Monocytes % (auto) 9.9 %; Neutrophils # (auto) 3.27 K/uL (1.4-6.5); Neutrophils % (auto) 53.3 %
[2022-02-06 08:16] LABS: Partial Thromboplastin Ratio 1.8
[2022-02-06 08:18] LABS: Partial Thromboplastin Time 48.4 Seconds (21.0-31.0)
[2022-02-06 08:24] LABS: BUN Creatinine Ratio 15.6 (10-20); Calcium 8.7 mg/dl (8.5-10.1); Est GFR (Non-African American) 45.7 ml/min; Magnesium 1.9 mg/dl (1.7-2.4); Potassium 4.1 mmol/L (3.5-5.1); Troponin I High Sensitivity 147.7 pg/ml (0-20)
[2022-02-06] MEDS: INSULIN ASPART PER UNIT SC SCH ×2 (08:30→12:30)
[2022-02-06] MEDS ORDERED: ROSUVASTATIN CALCIUM 10 MG TAB PO SCH (09:00)
[2022-02-06] MEDS ORDERED: CITALOPRAM 20 MG TAB PO SCH (09:00)
[2022-02-06] MEDS ORDERED: FUROSEMIDE 20 MG TAB PO SCH (09:00)
[2022-02-06] MEDS ORDERED: CLOPIDOGREL BISULFATE 75 MG TAB PO SCH (09:00)
[2022-02-06] MEDS ORDERED: CHOLECALCIFEROL 1,000 UNITS 25 MCG TAB PO SCH (09:00)
[2022-02-06] MEDS ORDERED: ISOSORBIDE MONO EXTENDED REL 60 MG TABCR PO SCH (09:00)
[2022-02-06] MEDS ORDERED: TIMOLOL MALEATE 0.5% OP SOLN 5 ML BTL OPL SCH (09:00)
[2022-02-06] MEDS ORDERED: METOPROLOL SUCC 25MG EXT REL TAB PO SCH (09:00)
[2022-02-06] MEDS ORDERED: PANTOprazole 40 MG TAB PO SCH (09:00)
[2022-02-06] MEDS ORDERED: GABAPENTIN 300 MG CAP PO SCH (09:00)
[2022-02-06] MEDS ORDERED: ASPIRIN 81 MG ECTAB PO SCH (09:00)
[2022-02-06] MEDS ORDERED: LANTUS PER UNIT CHARGE SQ SCH (09:00)
[2022-02-06] MEDS ORDERED: CARBIDOPA/LEVODOPA 25/100MG TAB PO SCH (09:00)
[2022-02-06] MEDS ORDERED: RANOLAZINE 500 MG ER TAB PO SCH (09:00)
--- NOTE | 2022-02-06 09:12 | Cardiology Consultation ---
Date of Consultation February 06, 2022 History of Present Illness Reason for Consultation: Progressive shoulder discomfort as his anginal equivalent and shortness of breath Attending Physician: Laya Treviño, History of Present Illness Patient called the office yesterday with progressive shoulder discomfort and increasing shortness of breath with less and less amounts of activity. He notes now he walks 10 to at most 20 feet he has discomfort and needs to stop to catch his breath he is using upwards of 10 nitroglycerin a day just to relieve his symptoms. He has had a continued decline in his functional capacity. This morning he is no longer short of breath. He is not having any shoulder discomfort at rest while on a heparin drip. He denies any lightheadedness or di zziness at this point. He denies any lower extremity edema. He denies any orthopnea. He has no lower extremity edema. He said no palpitations or fluttering or feeling his heart racing. The rest of a complete her systems otherwise negative. Allergies Allergy/AdvReac Type Severity Reaction Status Date / Time Sulfa (Sulfonamide Allergy Severe SHORTNESS Verified 02/06/22 08:06 Antibiotics) OF BREATH atenolol Allergy Unknown UNKNOWN Verified 02/06/22 08:06 erythromycin base Allergy Unknown Unknown Verified 02/06/22 08:06 prednisone Allergy Unknown Unknown Verified 02/06/22 08:06 ibuprofen AdvReac Intermediate STOMACH Verified 02/06/22 08:06 EROSION naproxen AdvReac Intermediate STOMACH Verified 02/06/22 08:06 EROSION fentanyl AdvReac Mild HICCUPS Verified 02/06/22 08:06 midazolam AdvReac Mild HICCUPS Verified 02/06/22 08:06 lisinopril AdvReac Cough Verified 02/06/22 08:06 Home Medications Medication Instructions Recorded Confirmed Type latanoprost 0.005 % eye drops 1 drp OPB HS 03/01/19 12/29/21 History metoprolol succinate 25 mg 25 mg PO QAM 03/01/19 12/29/21 History tablet,extended release 24 hr timolol maleate 0.5 % eye drops 1 drp OPL QAM 03/01/19 12/29/21 History omega 3 350 mg-dha 235 mg-epa 90 1 cap PO TID 06/18/19 12/29/21 History mg-fish oil 597 mg capsule,delay rel ([place]-3) blood sugar diagnostic #10 ea 07/06/19 12/29/21 History carbidopa 25 mg-levodopa 100 mg 0.5 tab PO TID 07/06/19 12/29/21 History tablet citalopram 10 mg tablet (Celexa) 10 mg PO HS 07/06/19 12/29/21 History meclizine 25 mg tablet 25 mg PO TID PRN dizzyness 07/06/19 12/29/21 History metformin 500 mg tablet,extended 1,000 mg PO QDD 07/06/19 12/29/21 History release 24 hr gabapentin 300 mg capsule 600 mg PO BID 10/06/19 12/29/21 History (Neurontin) acetaminophen 500 mg tablet 1,000 mg PO TID 03/06/20 12/29/21 History (Acetaminophen Extra Strength) alendronate 70 mg tablet 70 mg PO WK 03/06/20 12/29/21 History ammonium lactate 12 % topical cream 1 applic topical QAM 03/06/20 12/29/21 History cholecalciferol (vitamin D3) 50 2,000 unit PO QAM 03/06/20 12/29/21 History mcg (2,000 unit) capsule insulin glargine 100 unit/mL (3 15 unit subcut HS 03/06/20 12/29/21 History mL) subcutaneous pen (Callieaglar Jessi U-100 Insulin) bacitracin 500 unit/gram topical 1 applic topical BID #14 grams 06/15/20 12/29/21 Rx ointment clopidogrel 75 mg tablet 75 mg PO DAILY 11/28/21 12/29/21 History isosorbide mononitrate 30 mg 30 mg PO QAM 11/28/21 12/29/21 History tablet,extended release 24 hr nitroglycerin 0.3 mg sublingual 0.3 mg sublingual .PRN/UD PRN 11/28/21 12/29/21 History tablet Chest Pain docusate sodium 100 mg capsule 100 mg PO BID PRN Constipation 11/29/21 12/29/21 History semaglutide 0.25 mg or 0.5 mg (2 0.25 mg subcut WK 11/29/21 12/29/21 History mg/1.5 mL) subcutaneous pen injector (Ozempic) acetaminophen 500 mg tablet 1,000 mg PO TID PRN Pain 02/05/22 02/05/22 History (Tylenol Extra Strength) alendronate 70 mg tablet 70 mg PO WE 02/05/22 02/05/22 History aspirin 81 mg chewable tablet 81 mg PO BID 02/05/22 02/05/22 History betamethasone dipropionate 0.05 % 1 applic topical BID 02/05/22 02/05/22 History topical cream carbidopa 25 mg-levodopa 100 mg 0.5 tab PO TID 02/05/22 02/05/22 History tablet cholecalciferol (vitamin D3) 50 50 mcg PO DAILY 02/05/22 02/05/22 History mcg (2,000 unit) tablet (Vitamin D3) citalopram 10 mg tablet 10 mg PO DAILY 02/05/22 02/05/22 History clopidogrel 75 mg tablet 75 mg PO DAILY 02/05/22 02/05/22 History clotrimazole 1 % topical cream 1 applic topical BID 02/05/22 02/05/22 History diclofenac sodium 1 % topical gel 0 g topical QID PRN Pain 02/05/22 02/05/22 History docusate sodium 100 mg capsule 100 mg PO BID PRN Constipation 02/05/22 02/05/22 History (Colace) furosemide 20 mg tablet 20 mg PO DAILY 02/05/22 02/05/22 History gabapentin 300 mg capsule 300 mg PO TID 02/05/22 02/05/22 History insulin glargine 100 unit/mL (3 0 unit subcut DAILY 02/05/22 02/05/22 History mL) subcutaneous pen (Mau Bowen U-100 Insulin) isosorbide mononitrate 60 mg 60 mg PO DAILY 02/05/22 02/05/22 History tablet,extended release 24 hr latanoprost 0.005 % eye drops 1 drp OPB HS 02/05/22 02/05/22 History meclizine 25 mg tablet 25 mg PO TID PRN dizzyness 02/05/22 02/05/22 History metformin 500 mg tablet,extended 1,000 mg PO DAILY 02/05/22 02/05/22 History release 24 hr metoprolol succinate 25 mg 25 mg PO DAILY 02/05/22 02/05/22 History tablet,extended release 24 hr mupirocin 2 % topical ointment 1 applic topical BID PRN flare up 02/05/22 02/05/22 History nitroglycerin 0.3 mg sublingual 0.3 mg sublingual DIRECTED PRN 02/05/22 02/05/22 History tablet (Nitrostat) .chest pain omega-3 fatty acids 1,000 mg 1,000 mg PO TID 02/05/22 02/05/22 History capsule pantoprazole 40 mg tablet,delayed 40 mg PO DAILY 02/05/22 02/05/22 History release ranolazine 500 mg tablet,extended 500 mg PO BID 02/05/22 02/05/22 History release,12 hr rosuvastatin 10 mg tablet 10 mg PO DAILY 02/05/22 02/05/22 History semaglutide 0.25 mg or 0.5 mg (2 0.25 mg subcut WE 02/05/22 02/05/22 History mg/1.5 mL) subcutaneous pen injector (Ozempic) timolol maleate 0.5 % eye drops 1 drp OPL BID 02/05/22 02/05/22 History Patient History Medical History Anemia CAD (coronary artery disease) CAD (coronary artery disease) Chest pain Chronic kidney disease, stage III (moderate) Depression Diabetes mellitus GERD (gastroesophageal reflux disease) Glaucoma HLD (hyperlipidemia) HTN (hypertension) Hypertension 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 Parkinson disease Peripheral neuropathy T2DM (type 2 diabetes mellitus) Surgical History History of appendectomy History of cardiac cath History of cataract extraction History of knee surgery History of shoulder surgery No pertinent past surgical history Family History Father ALS (amyotrophic lateral sclerosis) Congestive heart disease Coronary heart disease Cardiac disorder Hypertension Mother Alzheimer disease Coronary heart disease Cardiac disorder Diabetes Hypertension Other Family history non-contributory Heart disease Social History Smoking Status: Never smoker Second Hand Exposure: No; Hx Alcohol Use: No Hx Substance Use: No Preferred Language: Luxembourgish Communication Ability: Effective Manager Strategic Development Required: No Beliefs That Will Affect Care: None marital status: Single Current Living Situation: Alone Current Living Situation Comment: house current occupational status: retired Feels Safe at Home: Yes Assistive Devices: Glasses Results & Data ([facility]) Vital Signs (Past 12 Hours) Vital Signs Temp Pulse Pulse Resp BP BP BP 02/06/22 07:20 36.4 C L 60 20 99/55 L 02/06/22 04:10 36.8 C 60 18 135/78 02/06/22 00:56 36.5 C 79 19 146/76 H 02/06/22 00:56 02/05/22 23:21 61 20 133/68 02/05/22 21:41 02/05/22 21:25 02/05/22 21:25 37.2 C 69 12 116/79 Pulse Ox Pulse Ox O2 Del Method O2 Del Method 02/06/22 07:20 98 Room Air 02/06/22 04:10 99 Room Air 02/06/22 00:56 99 Room Air 02/06/22 00:56 99 Room Air 02/05/22 23:21 98 Room Air 02/05/22 21:41 97 02/05/22 21:25 96 Room Air 02/05/22 21:25 96 Room Air Awake alert and oriented x3 is in no acute distress he looks younger than his stated age HEENT: 2+ carotid upstrokes no evidence of carotid bruits Lungs: Clear to auscultation bilaterally no rales rhonchi or wheezing Heart: Regular rate and rhythm no appreciable murmurs rubs or gallops Abdomen: Soft nontender distended positive bowel sounds Extremities: No clubbing cyanosis or edema Psychiatric: His affect appeared appropriate EKG AV paced rhythm Labs troponins are negative His outpatient diagnostic studies were reviewed IMPRESSIONS: 1. Unstable angina 2. Recent cardiac catheterization at [facility] May 2021 with known occlusion of the right coronary artery with a patent vein graft to the RCA; severe in-stent restenosis in the midportion of the proximal LAD stent and severe stenosis of the proximal circumflex 3. During that procedure he underwent angioplasty and stenting of the proximal circumflex; stents were placed in the LAD and the diagonal branch using a crush technique 4. History of hypertrophic cardiomyopathy status post myomectomy History of coronary artery disease x1 6. Hypertension 7. History of diastolic heart failure 8. Chronic kidney disease 9. Dual-chamber pacemaker He had an extensive work-up as an outpatient. Open heart surgery was recommended with a CASTANEDA to the LAD and a vein graft to the diagonal branch. Percutaneous intervention is not an option at this point. The concern being that he will have extensive restenosis like he has had previously. And we would just add additional layers of stent that will ultimately restenosis His symptoms are clearly, more progressive in the last couple of weeks. I Do not think at this point he can wait another 3 weeks to have surgery. We all do understand the risk of open heart surgery is high risk but this is his best option to improve his quality of life, she is risk of progressive LV dysfuncti on, and reduce the risk of an anterior myocardial infarction The patient is agreement to this. I did contact [facility] via the transfer center. I discussed with Dr. BUSTILLOS who is the accepting CT surgeon. There is a bed bed available today. He should remain on his heparin drip. I stopped his Plavix. If he were to have worsening angina we can stop his long-acting nitrates and switch him over to a nitroglycerin drip. The rest of his medicines remain the same.
--- NOTE | 2022-02-06 11:20 | Discharge Summary ---
Discharge Summary Date of Service February 06, 2022 Admission HPI Per Admitting Provider Ze Mansfield is an 81yo male with PMHx significant for CAD (h/o multiple stent placements, most recently in LAD earlier this year, as well as h/o CABG in 2012; s/p PPM/ICD), CKD3 (baseline Cr 1.38), HOCM (EF 60-65% in 12/2021), T2DM with neuropathy (A1c 8.3 on 01/17/2022), h/o CVA, HTN, HLD, KARINE, Parkinson's disease, BPH. glaucoma, depression/anxiety. He was referred to the ED by his Senior Linux Administrator, Dr. Helton ([facility]), for progressive left shoulder pain on minimal physical exertion and need for daily SL Nitroglycerin. Patient's pain resolves with rest and nitroglycerin. Of note patient was evaluated at [facility] on 01/17 shortly after heart catheterization earlier in December had showed progressive severe multi-vessel CAD with stenosis of previously stented vessels. He was recommended to undergo CABG and was scheduled as an outpatient. Was set to have this done in several week's time but given progressive symptoms was recommended by Dr. Helton to come to [facility] ED with plans for possible inpatient transfer to [facility]. Patient denies chest pain since arrival in the hospital. He is a never smoker and does not drink alcohol. He is proficient in ADLs/iADLs and lives In the ED the patient was afebrile and hemodynamically stable on room air. Labs significant for hsTroponin 78.8, Hgb 12 and plts 111 (chronic baseline), Cr 1.42 (~baseline). CXR unremarkable. Patient did experience some left-sided shoulder pain (his typical location of angina as of recently) when he stood up and walked to a wheelchair to go to Radiology for CXR, but this resolved with nitropaste. Patient was also given Aspirin 324mg in ED. Admission Exam Per Admitting Provider General: A&Ox3. NAD. Cooperative. HEENT: Atraumatic, normocephalic. Pulm: CTAB A&P. -wheezes, -rales, -rhonchi. Symmetrical chest rise. No increase work of breathing. No respiratory distress. Cardiac: RRR, 2/6 systolic murmur best auscultated at LLSB. Radial pulses intact and symmetrical. Chest: sternotomy scar present. No chest pain reproducible on palpation. Abdominal: soft, non-tender, non-distended, BS x 4 Skin: warm, dry, no rash Principal Dx & Hospital Course #1 = Principal Diagnosis (1) CAD (coronary artery disease): 81 yo M Hx multivessel CAD, HTN, HLD, DM2, GERD, Parkinson disease admitted for worsening anginal symptoms after being sent to hospital by Dr. Helton's office. He was scheduled to have CABG in the near future at [facility] prior to this admission. Here he was placed on heparin gtt and given nitro prn with improvement in his symptoms. Bed was acquired at [facility] for CT Surgery intervention and patient was transferred to [facility] on 02/[address] Leon. No chronic medication changes during [facility] admission. He was transferred to [facility] on heparin gtt. (2) HTN (hypertension): (3) T2DM (type 2 diabetes mellitus): (4) HLD (hyperlipidemia): (5) GERD (gastroesophageal reflux disease): (6) Parkinson disease: Discharge Exam Constitutional WD/WN, vitals as above Respiratory normal respiratory effort, lungs clear to auscultation Cardiovascular RRR, no murmur, no edema Psychiatric A+Ox3, euthymic affect Updated Medication List Medication Instructions Recorded Confirmed Type latanoprost 0.005 % eye drops 1 drp OPB HS 03/01/19 12/29/21 History metoprolol succinate 25 mg 25 mg PO QAM 03/01/19 12/29/21 History tablet,extended release 24 hr timolol maleate 0.5 % eye drops 1 drp OPL QAM 03/01/19 12/29/21 History omega 3 350 mg-dha 235 mg-epa 90 1 cap PO TID 06/18/19 12/29/21 History mg-fish oil 597 mg capsule,delay rel ([place]-3) blood sugar diagnostic #10 ea 07/06/19 12/29/21 History carbidopa 25 mg-levodopa 100 mg 0.5 tab PO TID 07/06/19 12/29/21 History tablet citalopram 10 mg tablet (Celexa) 10 mg PO HS 07/06/19 12/29/21 History meclizine 25 mg tablet 25 mg PO TID PRN dizzyness 07/06/19 12/29/21 History metformin 500 mg tablet,extended 1,000 mg PO QDD 07/06/19 12/29/21 History release 24 hr gabapentin 300 mg capsule 600 mg PO BID 10/06/19 12/29/21 History (Neurontin) acetaminophen 500 mg tablet 1,000 mg PO TID 03/06/20 12/29/21 History (Acetaminophen Extra Strength) alendronate 70 mg tablet 70 mg PO WK 03/06/20 12/29/21 History ammonium lactate 12 % topical cream 1 applic topical QAM 03/06/20 12/29/21 History cholecalciferol (vitamin D3) 50 2,000 unit PO QAM 03/06/20 12/29/21 History mcg (2,000 unit) capsule insulin glargine 100 unit/mL (3 15 unit subcut HS 03/06/20 12/29/21 History mL) subcutaneous pen (Basaglar KwikPen U-100 Insulin) bacitracin 500 unit/gram topical 1 applic topical BID #14 grams 06/15/20 12/29/21 Rx ointment clopidogrel 75 mg tablet 75 mg PO DAILY 11/28/21 12/29/21 History isosorbide mononitrate 30 mg 30 mg PO QAM 11/28/21 12/29/21 History tablet,extended release 24 hr nitroglycerin 0.3 mg sublingual 0.3 mg sublingual .PRN/UD PRN 11/28/21 12/29/21 History tablet Chest Pain docusate sodium 100 mg capsule 100 mg PO BID PRN Constipation 11/29/21 12/29/21 History semaglutide 0.25 mg or 0.5 mg (2 0.25 mg subcut WK 11/29/21 12/29/21 History mg/1.5 mL) subcutaneous pen injector (Ozempic) acetaminophen 500 mg tablet 1,000 mg PO TID PRN Pain 02/05/22 02/05/22 History (Tylenol Extra Strength) alendronate 70 mg tablet 70 mg PO WE 02/05/22 02/05/22 History aspirin 81 mg chewable tablet 81 mg PO BID 02/05/22 02/05/22 History betamethasone dipropionate 0.05 % 1 applic topical BID 02/05/22 02/05/22 History topical cream carbidopa 25 mg-levodopa 100 mg 0.5 tab PO TID 02/05/22 02/05/22 History tablet cholecalciferol (vitamin D3) 50 50 mcg PO DAILY 02/05/22 02/05/22 History mcg (2,000 unit) tablet (Vitamin D3) citalopram 10 mg tablet 10 mg PO DAILY 02/05/22 02/05/22 History clopidogrel 75 mg tablet 75 mg PO DAILY 02/05/22 02/05/22 History clotrimazole 1 % topical cream 1 applic topical BID 02/05/22 02/05/22 History diclofenac sodium 1 % topical gel 0 g topical QID PRN Pain 02/05/22 02/05/22 History docusate sodium 100 mg capsule 100 mg PO BID PRN Constipation 02/05/22 02/05/22 History (Colace) furosemide 20 mg tablet 20 mg PO DAILY 02/05/22 02/05/22 History gabapentin 300 mg capsule 300 mg PO TID 02/05/22 02/05/22 History insulin glargine 100 unit/mL (3 0 unit subcut DAILY 02/05/22 02/05/22 History mL) subcutaneous pen (Basaglar KwikPen U-100 Insulin) isosorbide mononitrate 60 mg 60 mg PO DAILY 02/05/22 02/05/22 History tablet,extended release 24 hr latanoprost 0.005 % eye drops 1 drp OPB HS 02/05/22 02/05/22 History meclizine 25 mg tablet 25 mg PO TID PRN dizzyness 02/05/22 02/05/22 History metformin 500 mg tablet,extended 1,000 mg PO DAILY 02/05/22 02/05/22 History release 24 hr metoprolol succinate 25 mg 25 mg PO DAILY 02/05/22 02/05/22 History tablet,extended release 24 hr mupirocin 2 % topical ointment 1 applic topical BID PRN flare up 02/05/22 02/05/22 History nitroglycerin 0.3 mg sublingual 0.3 mg sublingual DIRECTED PRN 02/05/22 02/05/22 History tablet (Nitrostat) .chest pain omega-3 fatty acids 1,000 mg 1,000 mg PO TID 02/05/22 02/05/22 History capsule pantoprazole 40 mg tablet,delayed 40 mg PO DAILY 02/05/22 02/05/22 History release ranolazine 500 mg tablet,extended 500 mg PO BID 02/05/22 02/05/22 History release,12 hr rosuvastatin 10 mg tablet 10 mg PO DAILY 02/05/22 02/05/22 History semaglutide 0.25 mg or 0.5 mg (2 0.25 mg subcut WE 02/05/22 02/05/22 History mg/1.5 mL) subcutaneous pen injector (Ozempic) timolol maleate 0.5 % eye drops 1 drp OPL BID 02/05/22 02/05/22 History Hospital Stay Data Consultations 02/05/22 22:47 ED Decision to Admit Stat 02/06/22 00:35 Consult Cardiology Routine Pending Results Patient Have Any Pending Studies at Discharge: No Discharge Instructions Given to Patient (Per Discharging Provider) Patient with a history of severe multivessel CAD. Scheduled to have CABG in next several weeks at [facility], however due to worsening anginal symptoms was sent to hospital by Dr. Helton's office. Here he was placed on heparin gtt and given nitro prn with improvement in his symptoms. Bed was acquired at [facility] for CT Surgery intervention and patient was transferred to [facility] on 02/06. No chronic medication changes during [facility] admission. Total Time Total Time Spent Total Time Spent (In Minutes): 40min Coding Level of Care Code D/C DAY MANAGEMENT >30 MINS Diagnoses CAD (coronary artery disease) I25.10 HTN (hypertension) I10 T2DM (type 2 diabetes mellitus) E11.9 HLD (hyperlipidemia) E78.5 GERD (gastroesophageal reflux disease) K21.9 Parkinson disease G20
--- NOTE | 2022-02-06 12:55 | Electrocardiogram Report ---
Test Reason : Blood Pressure : / mmHG Vent. Rate : 073 BPM Atrial Rate : 073 BPM P-R Int : 176 ms QRS Dur : 180 ms QT Int : 468 ms P-R-T Axes : 000 132 -17 degrees QTc Int : 515 ms AV dual-paced rhythm Abnormal ECG No previous ECGs available Confirmed by Louis Segura ([id number]) on 02/06/2022 12:54:31 PM Referred By: Anthony Helton Confirmed By:Louis Segura
[2022-02-06] MEDS ORDERED: LATANOPROST 0.005% OP SOLN 2.5 ML BTL OPB SCH (21:00)
== END 2022-02-06 14:34 | disposition short-term general hospital (02) | DRG 303 ==
LOC: ED 21:15 → 2N 02-06 → SUATTDRO 02-06 → MERGE 02-06 → 2N 02-06 00:26

== ENCOUNTER 2024-12-18 18:16 | Observation (INO) ==
--- NOTE | 2024-12-18 18:24 | Emergency Department Note ---
History of Present Illness General Chief complaint: Fall Stated complaint: Fall Time Seen by Provider: 12/18/24 18:16 History of Present Illness Provider complaint: Fall 83-year-old male presents emergency department for fall. Patient states he was [place] when he suddenly began to feel very weak and short of breath. Patient states he was trying to lean forward and then fell because he was feeling so weak and out of breath. Patient did strike his head. Patient is not on any blood thinners. Patient reports no chest pain. No abdominal pain. Home Medications Medication Instructions Recorded Confirmed Type blood sugar diagnostic #10 ea 07/06/19 11/29/24 History ammonium lactate 12 % topical cream 1 applic topical QAM 03/06/20 12/18/24 History insulin glargine 100 unit/mL (3 18 unit subcut HS 03/06/20 12/18/24 History mL) subcutaneous pen (Basaglar KwikPen U-100 Insulin) clopidogrel 75 mg tablet 75 mg PO DAILY 11/28/21 12/18/24 History acetaminophen 500 mg tablet 1,000 mg PO TID PRN Pain 02/05/22 12/18/24 History (Tylenol Extra Strength) alendronate 70 mg tablet 70 mg PO WE 02/05/22 12/18/24 History aspirin 81 mg chewable tablet 81 mg PO BID 02/05/22 12/18/24 History cholecalciferol (vitamin D3) 50 50 mcg PO DAILY 02/05/22 12/18/24 History mcg (2,000 unit) tablet (Vitamin D3) citalopram 10 mg tablet 20 mg PO HS 02/05/22 12/18/24 History docusate sodium 100 mg capsule 100 mg PO BID PRN Constipation 02/05/22 12/18/24 History (Colace) gabapentin 300 mg capsule 600 mg PO BID 02/05/22 12/18/24 History isosorbide mononitrate 60 mg 60 mg PO DAILY 02/05/22 12/18/24 History tablet,extended release 24 hr latanoprost 0.005 % eye drops 1 drp OPB HS 02/05/22 12/18/24 History meclizine 25 mg tablet 25 mg PO TID PRN dizzyness 02/05/22 12/18/24 History metformin 500 mg tablet,extended 1,000 mg PO PM 02/05/22 12/18/24 History release 24 hr nitroglycerin 0.3 mg sublingual 0.3 mg sublingual DIRECTED PRN 02/05/22 12/18/24 History tablet (Nitrostat) .chest pain omega-3 fatty acids 1,000 mg 2,000 mg PO DAILY 02/05/22 12/18/24 History capsule rosuvastatin 10 mg tablet 10 mg PO DAILY 02/05/22 12/18/24 History timolol maleate 0.5 % eye drops 1 drp OPL BID 02/05/22 12/18/24 History tamsulosin 0.4 mg capsule (Flomax) 0.4 mg PO DAILY #90 caps 02/17/24 12/18/24 Rx bupropion HCl 200 mg tablet,12 hr 200 mg PO DAILY 12/18/24 12/18/24 History sustained-release propranolol 10 mg tablet 10 mg PO HS 12/18/24 12/18/24 History repaglinide 1 mg tablet 1 mg PO TID 12/18/24 12/18/24 History triamcinolone acetonide 0.1 % 1 applic topical BID 12/18/24 12/18/24 History topical cream Allergies Allergy/AdvReac Type Severity Reaction Status Date / Time Sulfa (Sulfonamide Allergy Severe SHORTNESS Verified 12/18/24 19:45 Antibiotics) OF BREATH atenolol Allergy Unknown UNKNOWN Verified 12/18/24 19:45 erythromycin base Allergy Unknown Unknown Verified 12/18/24 19:45 prednisone Allergy Unknown Unknown Verified 12/18/24 19:45 ibuprofen AdvReac Intermediate STOMACH Verified 12/18/24 19:45 EROSION naproxen AdvReac Intermediate STOMACH Verified 12/18/24 19:45 EROSION fentanyl AdvReac Mild HICCUPS Verified 12/18/24 19:45 midazolam AdvReac Mild HICCUPS Verified 12/18/24 19:45 lisinopril AdvReac Cough Verified 12/18/24 19:45 Past Med/Surg History Problem List (Updated 12/19/24 @ 02:26 by Polo Seth MD) Forehead laceration Ground-level fall (Acute) Nasal bone fracture (Acute) Dyspnea on exertion Erectile dysfunction Vitamin D deficiency Stage 3b chronic kidney disease Urge incontinence Urinary urgency Dysuria CAD (coronary artery disease) HTN (hypertension) HLD (hyperlipidemia) Chest pain (Acute) Elevated troponin (Acute) T2DM (type 2 diabetes mellitus) Peripheral neuropathy Parkinson disease Depression Hypertrophic obstructive cardiomyopathy (HOCM) GERD (gastroesophageal reflux disease) Glaucoma CAD (coronary artery disease) Hypertension (Acute) Diabetes mellitus (Acute) Chronic kidney disease, stage III (moderate) (Acute) Anemia (Acute) Thrombocytopenia (Acute) Poor sleep hygiene Delayed sleep phase syndrome Excessive daytime sleepiness Sleep apnea Hematoma (nontraumatic) of male genital organs (Acute) Asthma (Acute) Cerumen impaction (Acute) Eustachian tube dysfunction (Acute) Hearing loss (Acute) Hypertrophic cardiomyopathy (Acute 11/05/12) Nephrolithiasis (Acute) Referred otalgia of right ear (Acute) Ulcer, oral mucosa traumatic (Acute) Chronic serous otitis media of right 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 Closed head injury (Acute) Medical History Ear drum perforation Chest pain Mixed conductive and sensorineural hearing loss of right ear with restricted hearing of left ear [id number] Surgical History No pertinent past surgical history History of shoulder surgery History of knee surgery History of cataract extraction History of cardiac cath History of appendectomy Family History Father ALS (amyotrophic lateral sclerosis) Congestive heart disease Coronary heart disease Cardiac disorder Hypertension Mother Alzheimer disease Coronary heart disease Cardiac disorder Diabetes Hypertension Other Family history non-contributory Heart disease Social History Smoking Status: Never smoker Second Hand Exposure: No; Do You Dip or Chew Tobacco: No; Hx Alcohol Use: No Hx Substance Use: No Preferred Language: Bengali Communication Ability: Effective Group Director Required: No Beliefs That Will Affect Care: Denominational Denominational Beliefs: zoroastrian marital status: Single Current Living Situation: Alone Current Living Situation Comment: house current occupational status: retired current occupation: [employer] Feels Safe at Home: Yes Safety Concerns: Feels Safe At This Time Assistive Devices: Cane, Hearing Aid - Bilateral and Walker Physical Exam Vital Signs Vital Signs - 24 hr 12/18/24 18:29 12/18/24 18:29 12/18/24 18:29 Temperature 36.4 C L 36.4 C L 36.4 C L Temperature Source Oral Oral Oral Pulse Rate 60 Pulse Rate [Apical] 60 60 Pulse Rate from SpO2 Sensor Respiratory Rate 22 22 22 Blood Pressure 152/74 H Blood Pressure [Left Arm] 152/74 H Blood Pressure [Right Arm] 152/74 H Blood Pressure Mean 100 Blood Pressure Mean [Left Arm] 100 Blood Pressure Mean [Right Arm] 100 Blood Pressure Position [Left Arm] Semi-fowlers Blood Pressure Position [Right Arm] Semi-fowlers Pulse Oximetry 100 100 100 Oxygen Delivery Method Room Air Room Air Room Air Sepsis Recent Fever Within 48 Hours No Sepsis New/Unexplained Change in Mental Status No Sepsis Action Taken by Nursing No Action Required 12/18/24 18:29 12/18/24 18:30 12/18/24 19:00 Temperature Temperature Source Pulse Rate 60 60 60 Pulse Rate [Apical] Pulse Rate from SpO2 Sensor 60 Respiratory Rate 22 17 Blood Pressure Blood Pressure [Left Arm] Blood Pressure [Right Arm] Blood Pressure Mean Blood Pressure Mean [Left Arm] Blood Pressure Mean [Right Arm] Blood Pressure Position [Left Arm] Blood Pressure Position [Right Arm] Pulse Oximetry 100 98 Oxygen Delivery Method Room Air Sepsis Recent Fever Within 48 Hours Sepsis New/Unexplained Change in Mental Status Sepsis Action Taken by Nursing 12/18/24 19:01 12/18/24 19:01 12/18/24 19:01 Temperature Temperature Source Pulse Rate Pulse Rate [Apical] Pulse Rate from SpO2 Sensor Respiratory Rate Blood Pressure 151/70 H 151/70 H 151/70 H Blood Pressure [Left Arm] Blood Pressure [Right Arm] Blood Pressure Mean 76 76 76 Blood Pressure Mean [Left Arm] Blood Pressure Mean [Right Arm] Blood Pressure Position [Left Arm] Blood Pressure Position [Right Arm] Pulse Oximetry Oxygen Delivery Method Sepsis Recent Fever Within 48 Hours Sepsis New/Unexplained Change in Mental Status Sepsis Action Taken by Nursing 12/18/24 19:01 12/18/24 19:30 12/18/24 20:00 Temperature Temperature Source Pulse Rate 60 Pulse Rate [Apical] Pulse Rate from SpO2 Sensor 60 Respiratory Rate 18 Blood Pressure 151/70 H 159/62 H Blood Pressure [Left Arm] Blood Pressure [Right Arm] Blood Pressure Mean 76 95 Blood Pressure Mean [Left Arm] Blood Pressure Mean [Right Arm] Blood Pressure Position [Left Arm] Blood Pressure Position [Right Arm] Pulse Oximetry 100 Oxygen Delivery Method Sepsis Recent Fever Within 48 Hours Sepsis New/Unexplained Change in Mental Status Sepsis Action Taken by Nursing 12/18/24 20:00 12/18/24 20:03 12/18/24 20:12 Temperature Temperature Source Pulse Rate 60 62 Pulse Rate [Apical] Pulse Rate from SpO2 Sensor 60 61 Respiratory Rate 16 16 Blood Pressure 159/62 H Blood Pressure [Left Arm] Blood Pressure [Right Arm] Blood Pressure Mean 95 Blood Pressure Mean [Left Arm] Blood Pressure Mean [Right Arm] Blood Pressure Position [Left Arm] Blood Pressure Position [Right Arm] Pulse Oximetry 98 97 Oxygen Delivery Method Sepsis Recent Fever Within 48 Hours Sepsis New/Unexplained Change in Mental Status Sepsis Action Taken by Nursing 12/18/24 20:24 12/18/24 20:30 12/18/24 20:33 Temperature Temperature Source Pulse Rate 67 60 Pulse Rate [Apical] Pulse Rate from SpO2 Sensor 67 60 Respiratory Rate 14 19 Blood Pressure 168/71 H Blood Pressure [Left Arm] Blood Pressure [Right Arm] Blood Pressure Mean 77 Blood Pressure Mean [Left Arm] Blood Pressure Mean [Right Arm] Blood Pressure Position [Left Arm] Blood Pressure Position [Right Arm] Pulse Oximetry 99 99 Oxygen Delivery Method Sepsis Recent Fever Within 48 Hours Sepsis New/Unexplained Change in Mental Status Sepsis Action Taken by Nursing 12/18/24 20:54 12/18/24 21:00 12/18/24 21:00 Temperature Temperature Source Pulse Rate 60 Pulse Rate [Apical] Pulse Rate from SpO2 Sensor 60 Respiratory Rate 18 Blood Pressure 161/74 H 161/74 H Blood Pressure [Left Arm] Blood Pressure [Right Arm] Blood Pressure Mean 127 127 Blood Pressure Mean [Left Arm] Blood Pressure Mean [Right Arm] Blood Pressure Position [Left Arm] Blood Pressure Position [Right Arm] Pulse Oximetry 99 Oxygen Delivery Method Sepsis Recent Fever Within 48 Hours Sepsis New/Unexplained Change in Mental Status Sepsis Action Taken by Nursing 12/18/24 21:00 12/18/24 21:03 12/18/24 22:17 Temperature Temperature Source Pulse Rate 60 60 Pulse Rate [Apical] Pulse Rate from SpO2 Sensor 60 Respiratory Rate 19 Blood Pressure 161/74 H Blood Pressure [Left Arm] Blood Pressure [Right Arm] Blood Pressure Mean 127 Blood Pressure Mean [Left Arm] Blood Pressure Mean [Right Arm] Blood Pressure Position [Left Arm] Blood Pressure Position [Right Arm] Pulse Oximetry 99 Oxygen Delivery Method Sepsis Recent Fever Within 48 Hours Sepsis New/Unexplained Change in Mental Status Sepsis Action Taken by Nursing 12/18/24 22:42 Temperature Temperature Source Pulse Rate 60 Pulse Rate [Apical] Pulse Rate from SpO2 Sensor Respiratory Rate 18 Blood Pressure 144/81 H Blood Pressure [Left Arm] Blood Pressure [Right Arm] Blood Pressure Mean 102 Blood Pressure Mean [Left Arm] Blood Pressure Mean [Right Arm] Blood Pressure Position [Left Arm] Blood Pressure Position [Right Arm] Pulse Oximetry 97 Oxygen Delivery Method Sepsis Recent Fever Within 48 Hours Sepsis New/Unexplained Change in Mental Status Sepsis Action Taken by Nursing Physical Exam GENERAL: oriented to person, place, and time. appears well-developed and well- nourished. HENT: Exam performed. - Head: Laceration above the right eyebrow. EYES: Conjunctivae and EOM are normal. Right eye exhibits no discharge. Left eye exhibits no discharge. No scleral icterus. NECK: Patient in c-collar. CV: Normal rate, regular rhythm, normal heart sounds and intact distal pulses. There is no peripheral edema. Palpable radial pulses bue. PULM/CHEST: Effort normal and breath sounds normal. No respiratory distress. No stridor. no wheezes. no rales. ABD: The abdomen is soft. There is no tenderness. NEURO: Motor and sensation grossly intact. SKIN: Skin is warm and dry. He is not diaphoretic. PSYCH: normal mood and affect. Behavior is normal. Judgment and thought content normal. Course Course 1815: The patient was evaluated in room B10. A complete history and physical exam was performed Cardiac monitoring: An order was placed for continuous cardiac monitoring. The monitor shows a rate of 60 with paced rhythm interpreted by me 2115: Vital signs stable. Labs are significant for high sensitive opponent of 20.9. Imaging shows a broken nose otherwise no acute traumatic injury. Lacerations were fixed by JESSICA evans see her procedure note. Spoke with ENT on- call Dr. Tripp who states patient can follow-up with him outpatient for the broken nose. Patient will be admitted for rule out ACS given his symptoms. Administered Medications Discontinued Medications Aspirin (Aspirin 81 Mg Ectab) 81 mg PO NOW STA Stop: 12/18/24 22:43 Last Admin: 12/19/24 01:41 Dose: 81 mg Documented By: MANOLO Citalopram Hydrobromide (Citalopram 20 Mg Tab) 20 mg PO NOW STA Stop: 12/18/24 22:43 Last Admin: 12/19/24 01:42 Dose: 20 mg Documented By: MANOLO Gabapentin (Gabapentin 600 Mg Tab) 600 mg PO NOW STA Stop: 12/18/24 22:43 Last Admin: 12/19/24 01:42 Dose: 600 mg Documented By: MANOLO Acetaminophen (Ofirmev) 1,000 mg in 100 mls @ 400 mls/hr IV NOW STA Stop: 12/18/24 21:55 Last Infusion: 12/18/24 22:54 Dose: Infused Documented By: Admin: 12/18/24 21:44 Dose: 400 mls/hr Documented By: DARIEL Insulin Glargine (Lantus Per Unit Charge) 18 units SQ 2242 JESSICA Stop: 12/19/24 01:15 Last Admin: 12/19/24 01:31 Dose: 18 units Documented By: MANOLO Co-signed By: CLIFFORD Lidocaine/Epinephrine (Lidocaine 1%/Epinephrine 1:100,000 50 Ml Vial) 20 ml INFIL NOW ONE Stop: 12/18/24 21:39 Last Admin: 12/18/24 21:44 Dose: 1 ml Documented By: DARIEL Morphine Sulfate (Morphine Sulfate 2 Mg/Ml Carp) 0.5 mg IV NOW STA Stop: 12/19/24 01:26 Last Admin: 12/19/24 01:42 Dose: 0.5 mg Documented By: MANOLO Medical Decision Making Laboratory Data Attestation: I reviewed the patient's lab results. 12/18/24 Unknown 12/18/24 Unknown Lab Results 12/18/24 Range/Units 20:23 Troponin I High Sens 23.6 H (0-20) pg/ml Imaging Data Attestation: I personally reviewed and interpreted this imaging study as follows: My Impression: CT head: No [facility] Radiologist's Impression: Head CT 12/18/24 18:20 CT head without contrast History: Trauma Comparison: None Technique: Using multidetector thin collimation helical acquisition technique, axial, coronal and sagittal CT images from the skull base to the vertex were obtained without intravenous contrast. Dose reduction techniques were achieved by using automatic exposure control and/or adjustment of mA and/or kV according to patient size and/or use of iterative reconstruction technique. Findings: No intracranial hemorrhage, mass-effect, or midline shift. The ventricles are proportionate to the cerebral sulci. The toney to white matter differentiation of the cerebral hemispheres is preserved. The basal cisterns are patent. There is moderate cerebral atrophy. Moderate, patchy low-attenuation changes in the white matter, most suggestive of sequelae of chronic small vessel ischemic disease. The visualized paranasal sinuses are clear. Mastoid air cells are clear. Impression: No acute intracranial pathology. Electronically signed by Dimas Hernandez 12-18-2024 6:[address] 12/18/24 18:21 CT cervical spine without IV contrast History: Trauma Comparison: None Technique: Using multidetector thin collimation helical acquisition technique, axial, coronal and sagittal CT images through the cervical spine were obtained without intravenous contrast. Dose reduction techniques were achieved by using automatic exposure control and/or adjustment of mA and/or kV according to patient size and/or use of iterative reconstruction technique. Findings: The cervical vertebrae are normally aligned. Straightened cervical lordosis. No acute fracture or subluxation. No prevertebral edema. Moderate discogenic degenerative change at C5-6 and C6-7. No abnormality of the paraspinous soft tissues. Impression: No acute fracture or traumatic subluxation. Electronically signed by Dimas Hernandez 12-18-2024 8:19 PM Chest X-Ray 12/18/24 18:21 Chest radiograph, one view History: Chest pain Comparison: None Findings: Single AP view of the chest performed. No focal consolidation or pleural effusion. No pneumothorax. Left chest wall dual-lead AICD. CABG changes. Mid right lung granuloma unchanged. The cardiomediastinal silhouette is within normal limits. Normal pulmonary vascularity. No evidence for lymphadenopathy. No visualized bony or soft tissue abnormality. Impression: No acute process Electronically signed by Dimas Hernandez 12-18-2024 7:[address] 12/18/24 18:21 CT maxillofacial without contrast History: Trauma Comparison: None Technique: Using thin collimation multidetector helical acquisition technique, axial and coronal thin section CT images were reconstructed through the facial bones. Images were reviewed in bone and soft tissue windows. One or more of the following dose-optimizing techniques was utilized for this exam: automated exposure control, adjustment of the mA and/or kV according to patient size, and/or use of iterative reconstruction technique. Findings: Leftward deviated comminuted fracture about the distal aspect of the nasal bone. The cribriform plate appears intact. Alignment of the facial bones appears normal. There is no hematoma, soft tissue mass or gas visualized within the orbits. Mild mucosal thickening of the maxillary sinuses. Periodontal disease. Impression: Comminuted fracture of the nasal bone. Remainder of the facial bones appear intact Electronically signed by Dimas Hernandez 12-18-2024 6:59 PM ECG Data Attestation: I personally reviewed and interpreted this ECG as follows: Additional Comments: Paced rhythm with a rate of 60. HI 176 QRS 192 QTc 500. No ectopy. [facility] Narrative 1816: The patient was evaluated in room B10. A complete history and physical exam was performed Cardiac monitoring: An order was placed for continuous cardiac monitoring. The monitor shows a rate of 60 with paced rhythm interpreted by me 2115: Vital signs stable. Labs are significant for high sensitive opponent of 20.9. Imaging shows a broken nose otherwise no acute traumatic injury. Lacerations were fixed by PA matter see her procedure note. Spoke with ENT on- call Dr. Tripp who states patient can follow-up with him outpatient for the broken nose. Patient will be admitted for rule out ACS given his symptoms. Impression & Plan Nasal bone fracture, Ground-level fall, Elevated troponin Discharge Plan Visit Data Chief Complaint: Fall Stated Complaint: Fall ED Provider: Polo Seth Discharge Problem: Nasal bone fracture, Ground-level fall, Elevated troponin Patient Disposition: Admitted As Inpatient Condition: Fair Discharge Instructions Interventions: ED Discharge Assessment Last Done: 12/18/24 23:55
[2024-12-18 18:45] LABS: Hematocrit (blood only) 34.0 % (42.0-52.0); Hemoglobin 11.6 g/dl (14.0-18.0); Immature Granulocytes # (auto) 0.03 K/uL (0.01-0.20); Immature Granulocytes % (auto) 0.3 %; Mean Corpuscular Hemoglobin 31.0 pg (25.0-34.0); Mean Corpuscular Volume 90.9 fL (80.0-100.0); Platelet Count 114 K/uL (130-400); RDW Standard Deviation 41.1 fL (36.4-46.3); Red Blood Count 3.74 M/uL (4.70-6.10); White Blood Count 9.00 K/ul (4.8-10.8)
--- NOTE | 2024-12-18 18:59 | CT Scan Report ---
CT maxillofacial without contrast History: Trauma Comparison: None Technique: Using thin collimation multidetector helical acquisition technique, axial and coronal thin section CT images were reconstructed through the facial bones. Images were reviewed in bone and soft tissue windows. One or more of the following dose-optimizing techniques was utilized for this exam: automated exposure control, adjustment of the mA and/or kV according to patient size, and/or use of iterative reconstruction technique. Findings: Leftward deviated comminuted fracture about the distal aspect of the nasal bone. The cribriform plate appears intact. Alignment of the facial bones appears normal. There is no hematoma, soft tissue mass or gas visualized within the orbits. Mild mucosal thickening of the maxillary sinuses. Periodontal disease. Impression: Comminuted fracture of the nasal bone. Remainder of the facial bones appear intact Electronically signed by Dimas Hernandez 12-18-2024 6:59 PM
[2024-12-18 19:01] LABS: Anion Gap 8.0 (3-11); Blood Urea Nitrogen 31.0 mg/dl (6-23); Calcium 9.8 mg/dl (8.6-10.3); Carbon Dioxide 27.0 mmol/L (21-32); Chloride 104.0 mmol/L (98-107); Creatinine Clr Calc Pharmacy 29.9 ml/min; Glucose 99.0 mg/dl (70-99(Fasting)); Lipase 36.0 U/L (11-82); Potassium 4.6 mmol/L (3.5-5.1); Sodium 139.0 mmol/L (136-145)
--- NOTE | 2024-12-18 19:02 | CT Scan Report ---
CT head without contrast History: Trauma Comparison: None Technique: Using multidetector thin collimation helical acquisition technique, axial, coronal and sagittal CT images from the skull base to the vertex were obtained without intravenous contrast. Dose reduction techniques were achieved by using automatic exposure control and/or adjustment of mA and/or kV according to patient size and/or use of iterative reconstruction technique. Findings: No intracranial hemorrhage, mass-effect, or midline shift. The ventricles are proportionate to the cerebral sulci. The toney to white matter differentiation of the cerebral hemispheres is preserved. The basal cisterns are patent. There is moderate cerebral atrophy. Moderate, patchy low-attenuation changes in the white matter, most suggestive of sequelae of chronic small vessel ischemic disease. The visualized paranasal sinuses are clear. Mastoid air cells are clear. Impression: No acute intracranial pathology. Electronically signed by Dimas Hernandez 12-18-2024 6:59 PM
--- NOTE | 2024-12-18 19:02 | XRay Report ---
Chest radiograph, one view History: Chest pain Comparison: None Findings: Single AP view of the chest performed. No focal consolidation or pleural effusion. No pneumothorax. Left chest wall dual-lead AICD. CABG changes. Mid right lung granuloma unchanged. The cardiomediastinal silhouette is within normal limits. Normal pulmonary vascularity. No evidence for lymphadenopathy. No visualized bony or soft tissue abnormality. Impression: No acute process Electronically signed by Dimas Hernandez 12-18-2024 7:02 PM
[2024-12-18 19:21] LABS: INR 1.0 (0.9-1.1); Partial Thromboplastin Time 25 Seconds (21-31); Prothrombin Time 11.0 Seconds (9.0-12.0)
--- NOTE | 2024-12-18 20:20 | CT Scan Report ---
CT cervical spine without IV contrast History: Trauma Comparison: None Technique: Using multidetector thin collimation helical acquisition technique, axial, coronal and sagittal CT images through the cervical spine were obtained without intravenous contrast. Dose reduction techniques were achieved by using automatic exposure control and/or adjustment of mA and/or kV according to patient size and/or use of iterative reconstruction technique. Findings: The cervical vertebrae are normally aligned. Straightened cervical lordosis. No acute fracture or subluxation. No prevertebral edema. Moderate discogenic degenerative change at C5-6 and C6-7. No abnormality of the paraspinous soft tissues. Impression: No acute fracture or traumatic subluxation. Electronically signed by Dimas Hernandez 12-18-2024 8:19 PM
[2024-12-18] MEDS: LIDOCAINE 1%/EPINEPHRINE 1:100,000 50 ML VIAL INFIL ONE (21:44)
[2024-12-18] MEDS: ACETAMINOPHEN 1,000 MG/100 ML VIAL IV STA (21:44)
--- NOTE | 2024-12-18 22:14 | Emergency Department Note ---
ED Visit Note I was asked by Dr. Seth to repair the laceration of the patient's forehead. Please see his dictation regarding complete history, physical examination, as well as final disposition. In short, this patient has a 2.5cm laceration on the right eyebrow. This does gape apart with traction. No bone or significant blood vessels present at the base of the wound. PROCEDURE NOTE: Verbal consent was obtained to perform the procedure. Using sterile technique the wound was cleaned with Betadine. The area was sterilely draped. 1 ml of 1% lidocaine with epinephrine was used to anesthetize the laceration on the right eyebrow. Once the patient was anesthetized, the wound was copiously irrigated under pressure with sterile saline. The wound was explored and there were no deep structures injured such as tendons, bone, or significant blood vessels. The laceration was repaired using 4 simple interrupted 5-0 vicryl sutures to close the deep layer, followed by simple interrupted 5-0 nylon sutures with the skin edges being well approximated. The patient tolerated the procedure well. Hemostasis was achieved. The area was cleaned with sterile saline and dressed with bacitracin ointment.
[2024-12-18] MEDS ORDERED: LANTUS PER UNIT CHARGE SQ STA (22:42)
[2024-12-18] MEDS ORDERED: GLUCOSE 40% GEL 15 GM TUBE PO PRN ×2 (22:42→23:54)
--- NOTE | 2024-12-18 22:42 | History & Physical Report ---
Date of Service December 18, 2024 Assessment & Plan (1) Elevated troponin: (2) Dyspnea on exertion: (3) Nasal bone fracture: (4) Ground-level fall: (5) Forehead laceration: Plan Patient is an 83-year-old male with past medical history of stage IIIb CKD, type II DM on insulin, HTN, HLD, CAD s/p CABG x 2, s/p pacemaker, Parkinson's, HOCM. Patient presented via EMS after an unwitnessed ground-level fall when [place] the [place]. Patient states bilateral leg weakness and dyspnea prior to the fall. He uses a rollator or cane at baseline however was not used at the time of the fall, BL leg weakness at baseline with hx of Parkinson's. On an elevated to 23.6 and patient is being admitted for ACS concern to have echocardiogram. #elevated troponin/dyspnea on exertion - Trop 23.6 -> 20.9. EKG showed AV paced rhythm, no ischemic changes. Heart score 5. - troponin every 6 hours EKG with chest pain as needed Echocardiogram ordered - magnesium level ordered, will replete if <2 Monitor on telemetry #nasal bone fracture/ground-level fall/forehead laceration face CT showed commuted fracture of the nasal bone, CXR negative, cervical spine CT negative, head CT negative. Hgb 12.9 -> 11.6. - s/p 4 simple suture in ED - weakness at baseline with Parkinson's hx, was not using cane at time of fall - defer pt/ot consults - refer to ENT on discharge #CKDcreatinine 1.6 (at baseline). Follows with Dr. Rincon. #Type II DMcontinue metformin and glargine at bedtime, hold repaglinide. #CAD/HTN/HLDs/p CABG x 2 Continue Plavix, aspirin, isosorbide mononitrate, propranolol, statin #Parkinson's diseasewith chronic weakness, unchanged. VTE ppx: SCDs, low risk Dispo: med/tele, obs - anticipate dc home 12/19 after echocardiogram Admission and Anticipated Discharge Date Admission Date: 12/18/24 History of Present Illness Chief Complaint: fall Primary Care Provider: Jefferson Suarez DO Patient is an 83-year-old male with past medical history of stage IIIb CKD, type II DM on insulin, HTN, HLD, CAD s/p CABG x 2, s/p pacemaker, Parkinson's, HOCM. Patient presented via EMS after an unwitnessed ground-level fall when [place] the [place] to his [place]. Patient states bilateral leg weakness and dyspnea prior to the fall. He uses a rollator or cane at baseline however was not used at the time of the fall. On an elevated to 23.6 and patient is being admitted for ACS concern to have echocardiogram. Patient seen at bedside. He typically walks with a rollator or a cane at baseline however he did a similar walk downtown 2 days ago and did fine with it, so he left his cane in the car. He was walking his friends to the stadium and then back to the car whenever he developed bilateral leg weakness and dyspnea causing him to fall into the grass. He denies any chest pain or dizziness prior to the fall. He stated he typically has leg weakness at baseline when he walks for distances due to his Parkinson's disease, unchanged from baseline. he denies any current dizziness, lightheadedness, headaches, chest pain, shortness of breath. He stated he did have to have a CABG approximately 2 to 3 years ago. He is scheduled to have an echocardiogram on Friday with Dr. Watkins with [facility] who he follows with in the outpatient setting. He is due for his evening medications including glargine insulin, noted to be 18 units at bedtime however he reports he has been using 20 units at bedtime. He wishes to be full code. Allergies Allergy/AdvReac Type Severity Reaction Status Date / Time Sulfa (Sulfonamide Allergy Severe SHORTNESS Verified 12/18/24 19:45 Antibiotics) OF BREATH atenolol Allergy Unknown UNKNOWN Verified 12/18/24 19:45 erythromycin base Allergy Unknown Unknown Verified 12/18/24 19:45 prednisone Allergy Unknown Unknown Verified 12/18/24 19:45 ibuprofen AdvReac Intermediate STOMACH Verified 12/18/24 19:45 EROSION naproxen AdvReac Intermediate STOMACH Verified 12/18/24 19:45 EROSION fentanyl AdvReac Mild HICCUPS Verified 12/18/24 19:45 midazolam AdvReac Mild HICCUPS Verified 12/18/24 19:45 lisinopril AdvReac Cough Verified 12/18/24 19:45 Home Medications Medication Instructions Recorded Confirmed Type blood sugar diagnostic #10 ea 07/06/19 11/29/24 History ammonium lactate 12 % topical cream 1 applic topical QAM 03/06/20 12/18/24 History insulin glargine 100 unit/mL (3 18 unit subcut HS 03/06/20 12/18/24 History mL) subcutaneous pen (Basaglar KwikPen U-100 Insulin) clopidogrel 75 mg tablet 75 mg PO DAILY 11/28/21 12/18/24 History acetaminophen 500 mg tablet 1,000 mg PO TID PRN Pain 02/05/22 12/18/24 History (Tylenol Extra Strength) alendronate 70 mg tablet 70 mg PO WE 02/05/22 12/18/24 History aspirin 81 mg chewable tablet 81 mg PO BID 02/05/22 12/18/24 History cholecalciferol (vitamin D3) 50 50 mcg PO DAILY 02/05/22 12/18/24 History mcg (2,000 unit) tablet (Vitamin D3) citalopram 10 mg tablet 20 mg PO HS 02/05/22 12/18/24 History docusate sodium 100 mg capsule 100 mg PO BID PRN Constipation 02/05/22 12/18/24 History (Colace) gabapentin 300 mg capsule 600 mg PO BID 02/05/22 12/18/24 History isosorbide mononitrate 60 mg 60 mg PO DAILY 02/05/22 12/18/24 History tablet,extended release 24 hr latanoprost 0.005 % eye drops 1 drp OPB HS 02/05/22 12/18/24 History meclizine 25 mg tablet 25 mg PO TID PRN dizzyness 02/05/22 12/18/24 History metformin 500 mg tablet,extended 1,000 mg PO PM 02/05/22 12/18/24 History release 24 hr nitroglycerin 0.3 mg sublingual 0.3 mg sublingual DIRECTED PRN 02/05/22 12/18/24 History tablet (Nitrostat) .chest pain omega-3 fatty acids 1,000 mg 2,000 mg PO DAILY 02/05/22 12/18/24 History capsule rosuvastatin 10 mg tablet 10 mg PO DAILY 02/05/22 12/18/24 History timolol maleate 0.5 % eye drops 1 drp OPL BID 02/05/22 12/18/24 History tamsulosin 0.4 mg capsule (Flomax) 0.4 mg PO DAILY #90 caps 02/17/24 12/18/24 Rx bupropion HCl 200 mg tablet,12 hr 200 mg PO DAILY 12/18/24 12/18/24 History sustained-release propranolol 10 mg tablet 10 mg PO HS 12/18/24 12/18/24 History repaglinide 1 mg tablet 1 mg PO TID 12/18/24 12/18/24 History triamcinolone acetonide 0.1 % 1 applic topical BID 12/18/24 12/18/24 History topical cream Past Med/Surg History Problem List (Updated 12/19/24 @ 02:26 by Polo Seth MD) Forehead laceration Ground-level fall (Acute) Nasal bone fracture (Acute) Dyspnea on exertion Erectile dysfunction Vitamin D deficiency Stage 3b chronic kidney disease Urge incontinence Urinary urgency Dysuria CAD (coronary artery disease) HTN (hypertension) HLD (hyperlipidemia) Chest pain (Acute) Elevated troponin (Acute) T2DM (type 2 diabetes mellitus) Peripheral neuropathy Parkinson disease Depression Hypertrophic obstructive cardiomyopathy (HOCM) GERD (gastroesophageal reflux disease) Glaucoma CAD (coronary artery disease) Hypertension (Acute) Diabetes mellitus (Acute) Chronic kidney disease, stage III (moderate) (Acute) Anemia (Acute) Thrombocytopenia (Acute) Poor sleep hygiene Delayed sleep phase syndrome Excessive daytime sleepiness Sleep apnea Hematoma (nontraumatic) of male genital organs (Acute) Asthma (Acute) Cerumen impaction (Acute) Eustachian tube dysfunction (Acute) Hearing loss (Acute) Hypertrophic cardiomyopathy (Acute 11/05/12) Nephrolithiasis (Acute) Referred otalgia of right ear (Acute) Ulcer, oral mucosa traumatic (Acute) Chronic serous otitis media of right 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 Closed head injury (Acute) Medical History Ear drum perforation Chest pain Mixed conductive and sensorineural hearing loss of right ear with restricted hearing of left ear [id number] Surgical History No pertinent past surgical history History of shoulder surgery History of knee surgery History of cataract extraction History of cardiac cath History of appendectomy Family History Father ALS (amyotrophic lateral sclerosis) Congestive heart disease Coronary heart disease Cardiac disorder Hypertension Mother Alzheimer disease Coronary heart disease Cardiac disorder Diabetes Hypertension Other Family history non-contributory Heart disease Social History Smoking Status: Never smoker Second Hand Exposure: No; Do You Dip or Chew Tobacco: No; Hx Alcohol Use: No Hx Substance Use: No Preferred Language: Faroese Communication Ability: Effective Public Health Veterinarian Required: No Beliefs That Will Affect Care: [facility] Samaritan Beliefs: baptism marital status: Single Current Living Situation: Alone Current Living Situation Comment: house current occupational status: retired current occupation: [employer] Feels Safe at Home: Yes Safety Concerns: Feels Safe At This Time Assistive Devices: Cane, Hearing Aid - Bilateral and Walker Review of Systems Review of Systems: see HPI Physical Exam Physical Exam: The patient is awake, alert and oriented 3, well developed and well nourished, in no acute distress. Non-toxic appearing. HEENT- EOMI, mucous membranes moist. Hearing grossly intact. Left forehead lac with 4 simple sutures. Heart-normal S1 and S2. Paced rhythm. No murmurs, rubs or gallops. Lungs-clear bilaterally, no respiratory distress, no accessory muscle use. Abdomen-normal bowel sounds and soft. No ascites noted. Non-tender. Extremities- no clubbing, cyanosis, or edema. Rheumatologic-normal range of motion. Psychiatric-normal affect. Results & Data Results & Data Vital Signs (Past 12 Hours) Vital Signs Temp Pulse Pulse Resp BP BP BP 12/18/24 21:03 60 19 12/18/24 21:00 161/74 H 12/18/24 21:00 161/74 H 12/18/24 21:00 161/74 H 12/18/24 20:54 60 18 12/18/24 20:33 60 19 12/18/24 20:30 168/71 H 12/18/24 20:24 67 14 12/18/24 20:12 62 16 12/18/24 20:03 60 16 12/18/24 20:00 159/62 H 12/18/24 20:00 159/62 H 12/18/24 19:30 60 18 12/18/24 19:01 151/70 H 12/18/24 19:01 151/70 H 12/18/24 19:01 151/70 H 12/18/24 19:01 151/70 H 12/18/24 19:00 60 17 12/18/24 18:30 60 12/18/24 18:29 60 22 12/18/24 18:29 36.4 C L 60 22 152/74 H 12/18/24 18:29 36.4 C L 60 22 152/74 H 12/18/24 18:29 36.4 C L 60 22 152/74 H Pulse Ox O2 Del Method 12/18/24 21:03 99 12/18/24 21:00 12/18/24 21:00 12/18/24 21:00 12/18/24 20:54 99 12/18/24 20:33 99 12/18/24 20:30 12/18/24 20:24 99 12/18/24 20:12 97 12/18/24 20:03 98 12/18/24 20:00 12/18/24 20:00 12/18/24 19:30 100 12/18/24 19:01 12/18/24 19:01 12/18/24 19:01 12/18/24 19:01 12/18/24 19:00 98 12/18/24 18:30 12/18/24 18:29 100 Room Air 12/18/24 18:29 100 Room Air 12/18/24 18:29 100 Room Air 12/18/24 18:29 100 Room Air Laboratory Results reviewed CBC, CMP, troponin Diagnostic Findings reviewed face CT, CXR, cervical spine CT, head CT Medications Administered ED - tylenol 1g IV ECG Additional Comments: V-paced rhythm Rate 60 QTc 500 Code Status & VTE Plan Code Status full code VTE Prophylaxis Plan VTE Prophylaxis will be ordered: Yes Supervising Physician Co-Signing Physician Notes Attending addendum: I have physically seen this patient, have supervised the JAMIE's activities, and agree with the H&P unless as otherwise noted. Assessment and Plan: The patient is an 83-year-old male with past medical history including CKD stage IIIb, diabetes mellitus type 2 on insulin, hypertension, hyperlipidemia, CAD status post CABG x 2, status post pacemaker, Parkinson's, and HOCM. He was brought to the emergency department via EMS after an unwitnessed ground-level fall when [place] the [place]. Patient reports that he had bilateral leg weakness and dyspnea on exertion prior to the fall. He usually walks with a rollator or cane, but did not have them at the time of the fall. Troponin on admission was 23.6, with follow-up 20.9. Patient is [facility] for concern from the ED regarding ACS. Elevated troponin/dyspnea on exertion/CAD/hypertension- The patient will be admitted to telemetry for serial cardiac enzymes, serial EKG's, cardiac rhythm monitoring and a 2-D echocardiogram with Dopplers. Continue aspirin, clopidogrel, isosorbide mononitrate, sublingual nitroglycerin, propranolol Potassium 4.6. Magnesium level added to labs Nasal bone fracture/status post ground-level fall/forehead laceration- CT of face showed comminuted fracture of the nasal bone CT cervical spine negative CT head negative Status post 4 simple sutures in the ED Patient was encouraged to continue to use his supports when walking due to his Parkinson's Will follow-up with ENT on discharge CKD- Creatinine 1.60 is at his baseline Diabetes mellitus type 2- Hold metformin Continue glargine and sliding scale hold repaglinide Remaining orders and notations as noted PG Care Time/CCT Total # of Minutes Spent Total Time Spent with Patient: Total time spent is greater than 50% in coordination of care (as documented) at patient's floor/unit and/or counseling patient: Coding Level of Care Code 70791 INT INP/OBS CARE 3/75MIN Diagnoses Elevated troponin R77.8 Dyspnea on exertion R06.09 Nasal bone fracture S02.2XXA Ground-level fall W18.30XA Forehead laceration S01.81XA
[2024-12-18 23:16] LABS: Magnesium 2.1 mg/dl (1.7-2.4)
[2024-12-18] MEDS ORDERED: MECLIZINE HCL 25 MG TAB PO PRN (23:54)
[2024-12-18] MEDS ORDERED: ONDANSETRON INJ 2 MG/ML 2 ML VIAL IV PRN (23:54)
[2024-12-18] MEDS ORDERED: GLUCAGON FOR INJ 1 MG VIAL SQ PRN (23:54)
[2024-12-18] MEDS ORDERED: MELATONIN 3 MG TAB PO PRN (23:54)
[2024-12-18] MEDS ORDERED: DOCUSATE SODIUM 100 MG CAP PO PRN (23:54)
[2024-12-18] MEDS ORDERED: DEXTROSE 50% 50 ML SYRINGE IV PRN (23:54)
[2024-12-18] MEDS ORDERED: GLUCOSE 10 TAB/TUBE PO PRN (23:54)
[2024-12-18] MEDS ORDERED: CARBOHYDRATES FOR HYPOGLYCEMIA PO PRN (23:54)
[2024-12-19] MEDS: LANTUS PER UNIT CHARGE SQ SCH (01:31)
[2024-12-19] MEDS: ASPIRIN 81 MG ECTAB PO STA (01:41)
[2024-12-19] MEDS: CITALOPRAM 20 MG TAB PO STA (01:42)
[2024-12-19] MEDS: GABAPENTIN 600 MG TAB PO STA (01:42)
[2024-12-19] MEDS: MoRPHine SULFATE 2 MG/ML CARP IV STA (01:42)
[2024-12-19 02:54] LABS: Anion Gap 5.0 (3-11); Blood Urea Nitrogen 36.0 mg/dl (6-23); Calcium 9.2 mg/dl (8.6-10.3); Carbon Dioxide 29.0 mmol/L (21-32); Chloride 102.0 mmol/L (98-107); Creatinine Clr Calc Pharmacy 29.4 ml/min; Glucose 250.0 mg/dl (70-99(Fasting)); Potassium 4.3 mmol/L (3.5-5.1); Sodium 136.0 mmol/L (136-145)
[2024-12-19 02:56] LABS: Hematocrit (blood only) 32.8 % (42.0-52.0); Hemoglobin 10.9 g/dl (14.0-18.0); Mean Corpuscular Hemoglobin 31.0 pg (25.0-34.0); Mean Corpuscular Volume 93.2 fL (80.0-100.0); Platelet Count 99 K/uL (130-400); RDW Standard Deviation 42.5 fL (36.4-46.3); Red Blood Count 3.52 M/uL (4.70-6.10); White Blood Count 9.89 K/ul (4.8-10.8)
[2024-12-19 02:57] LABS: Immature Granulocytes # (auto) 0.02 K/uL (0.01-0.20); Immature Granulocytes % (auto) 0.2 %
[2024-12-19] MEDS: ACETAMINOPHEN 500 MG TAB PO PRN (04:05)
--- NOTE | 2024-12-19 06:58 | Electrocardiogram Report ---
Test Reason : Blood Pressure : */* mmHG Vent. Rate : 60 BPM Atrial Rate : 60 BPM P-R Int : 176 ms QRS Dur : 192 ms QT Int : 500 ms P-R-T Axes : * -88 89 degrees QTcB Int : 500 ms AV dual-paced rhythm Abnormal ECG When compared with ECG of 03-May-2024 17:37, Vent. rate has decreased by 3 bpm Confirmed by Gabriel Luna ([id number]) on 12/19/2024 6:57:31 AM Referred By: REFERRED SELF Confirmed By: Gabriel Luna
[2024-12-19 08:37] VITALS: RESP 16
[2024-12-19] MEDS: TAMSULOSIN HCL 0.4 MG CAP PO SCH (08:42)
[2024-12-19] MEDS: ROSUVASTATIN CALCIUM 10 MG TAB PO SCH (08:42)
[2024-12-19] MEDS: ASPIRIN 81 MG CHEW PO SCH (08:42)
[2024-12-19] MEDS: ISOSORBIDE MONO EXTENDED REL 60 MG TABCR PO SCH (08:42)
[2024-12-19] MEDS: CLOPIDOGREL BISULFATE 75 MG TAB PO SCH (08:43)
[2024-12-19] MEDS: GABAPENTIN 300 MG CAP PO SCH (08:44)
[2024-12-19] MEDS: TIMOLOL MALEATE 0.5% OP SOLN 5 ML BTL OPL SCH (08:44)
[2024-12-19] MEDS: INFLUENZA VACC TS2025-26(65y+)/PF (IIV3) 0.5mL Syr IM ONE (08:49)
[2024-12-19] MEDS: DICLOFENAC SOD 1% GEL 100 GM TUBE EXT SCH (08:50)
[2024-12-19] MEDS: PNEUMOCOCCAL VACCINE (PCV20) 20-VAL CONJ-DIP CRM/PF 0.5 ML SYR IM ONE (10:21)
[2024-12-19 11:56] VITALS: TEMP 97.9; O2SAT 90
--- NOTE | 2024-12-19 12:43 | XCELERA ---
[id number]
--- NOTE | 2024-12-19 13:03 | Discharge Summary ---
Discharge Summary Date of Service December 19, 2024 Principal Dx & Hospital Course #1 = Principal Diagnosis (1) Ground-level fall: Plan Patient is an 83-year-old male with past medical history of stage IIIb CKD, type II DM on insulin, HTN, HLD, CAD s/p CABG x 2, s/p pacemaker, Parkinson's, HOCM. Patient presented via EMS after an unwitnessed ground-level fall when [place] the [place] his [place]. Patient states bilateral leg weakness and dyspnea prior to the fall. He uses a rollator or cane at baseline however was not used at the time of the fall, BL leg weakness at baseline with hx of Parkinson's. On an elevated to 23.6 and patient is being admitted for ACS concern to have echocardiogram. On hospital evaluation EKG showed a paced rhythm. Troponin was minimally elevated and downtrended to 20 on repeat. He did not clinically have any chest pain. Echo showed a intact LVEF, mild to moderate AI. Formal report was pending however was discussed with cardiology prior to discharge. Ze reports that he had walked around 4 blocks and he was not lightheaded dizzy and he did not syncopize, but felt like he was starting to fall so tried to dive on the grass to cushion himself but missed and hit the curb. He notes he is normally able to walk independently although sometimes does use a cane or rollator for longer walks. He feels his strength is intact and he is at his normal state of health day of discharge. He did not have any chest pain, or syncopal/presyncopal symptoms which contributed to his fall. Given normal workup was felt to be appropriate for discharge and outpatient follow-up. He did sustain comminuted fracture of his nasal bone, follow-up with [facility] was scheduled as outpatient surgical intervention was not recommended. He had sutures placed which can be removed as an outpatient. Follow-up with PCP within 1 week #elevated troponin/dyspnea on exertion - Trop 23.6 -> 20.9. EKG showed AV paced rhythm, no ischemic changes. Heart score 5. - troponin every 6 hours EKG with chest pain as needed Echocardiogram preserved EF, mild to moderate AI, formal report pending - magnesium level ordered, will replete if <2 Monitor on telemetry #nasal bone fracture/ground-level fall/forehead laceration face CT showed commuted fracture of the nasal bone, CXR negative, cervical spine CT negative, head CT negative. Hgb 12.9 -> 11.6. - s/p 4 simple suture in ED - weakness at baseline with Parkinson's hx, was not using cane at time of fall. Has good strength and actually can ambulate independently and uses cane/rollator as needed which she was not at the time of an extended walk of 4 blocks when he fell. - Follow-up with ENT #CKDcreatinine 1.6 (at baseline). Follows with Dr. Rincon. Admission HPI Per Admitting Provider Patient is an 83-year-old male with past medical history of stage IIIb CKD, type II DM on insulin, HTN, HLD, CAD s/p CABG x 2, s/p pacemaker, Parkinson's, HOCM. Patient presented via EMS after an unwitnessed ground-level fall when he was walking from the [place] to his [place]. Patient states bilateral leg weakness and dyspnea prior to the fall. He uses a rollator or cane at baseline however was not used at the time of the fall. On an elevated to 23.6 and patient is being admitted for ACS concern to have echocardiogram. Patient seen at bedside. He typically walks with a rollator or a cane at baseline however he did a similar walk downtown 2 days ago and did fine with it, so he left his cane in the car. He was walking his friends to the stadium and then back to the car whenever he developed bilateral leg weakness and dyspnea causing him to fall into the grass. He denies any chest pain or dizziness prior to the fall. He stated he typically has leg weakness at baseline when he walks for distances due to his Parkinson's disease, unchanged from baseline. he denies any current dizziness, lightheadedness, headaches, chest pain, shortness of breath. He stated he did have to have a CABG approximately 2 to 3 years ago. He is scheduled to have an echocardiogram on Friday with Dr. Watkins with [facility] who he follows with in the outpatient setting. He is due for his evening medications including glargine insulin, noted to be 18 units at bedtime however he reports he has been using 20 units at bedtime. He wishes to be full code. Discharge Exam General: A&Ox3. NAD. Cooperative. HEENT: Right brow with simple sutures, wound well-approximated. Nasal bridge swelling and bruising. EOM intact without pain. Pupils like and reactive to light. Vision and hearing grossly intact Pulm: CTAB A&P. -wheezes, -rales, -rhonchi. Symmetrical chest rise. No increase in work of breathing. No respiratory distress. Cardiac: RRR, +sm. Radial pulses intact and symmetrical. Abdominal: Nontender, nondistended, soft. BS present. Discharge Plan Discharge Items Patient Disposition: Home - Self-Care Reason For Visit: ELEVATED TROP, DYSPNEA WITH GLF Discharge Diagnosis: Ground-level fall Condition on Discharge: Fair Activity: Resume your previous activity Non-emergency contact: Primary Care Provider and Specialist Call non-emergency contact if: you have any medication questions, your symptoms worsen and your pain is not controlled Follow-up/Referrals: Jefferson Suarez, [Primary Care Provider] - Sagar Childers, BRIGHT [Physician] - Diet: Regular Addtl Attending Provider Instructions: You are seen in the hospital after a fall. He reports that you had walked around 4 blocks and then felt off balance but knew you were going to fall so tried to fall onto the grass however missed and ended up hitting the curb. You did not have lightheaded or dizziness that led to your fall, and you did not experience a syncopal episode. Your EKG on admission showed a paced rhythm. You had a minimal detectable troponin which was downtrending on repeat. An echocardiogram of your heart was performed. Your heart pumping (LVEF) was normal. You have mild to moderate aor tic insufficiency. You did sustain a nasal bone fracture. Follow-up is being scheduled for you with ENT. No surgical intervention was recommended. You did sustain a facial laceration for which 4 simple sutures were placed with good approximation of skin in which continue to be well-approximated at time of discharge. You were able to ambulate independently, and noted you can usually do so inde pendently although sometimes using a cane or rollator. You were ambulating at your normal level of function at time of discharge If you develop any new or worsening symptoms including fever, chills, sweats, chest pain, chest pressure, difficulty breathing, uncontrolled nausea/vomiting, rash, wheezing, passing out or nearly passing out, bleeding, black/bloody bowel movements, or other new or concerning symptoms please call your primary care physician, or call 911 for re-evaluation in the emergency department if you are very concerned. Pending Studies at Discharge: No Stand-Alone Forms: My [facility] [employer]-transfection, Smoking Cessation Medications and DC Order Prescriptions: Continued (DME) blood sugar diagnostic Strip See Rx Instructions .ROUTE .MEDSUPPLY Qty: 10 Rx Instructions: As directed tamsulosin [Flomax] 0.4 mg capsule 0.4 mg PO DAILY Qty: 90 3RF insulin glargine [Basaglar KwikPen U-100 Insulin] 100 unit/mL (3 mL) insulin pen 18 unit SUBCUT HS ammonium lactate 12 % Cream 1 applic TOPICAL QAM Rx Instructions: apply and rub in well toes clopidogrel 75 mg tablet 75 mg PO DAILY alendronate 70 mg Tablet 70 mg PO WE Rx Instructions: EVERY FRIDAY aspirin 81 mg Tablet,Chewable 81 mg PO BID latanoprost 0.005 % drops 1 drp OPB HS omega-3 fatty acids 1,000 mg Capsule 2,000 mg PO DAILY nitroglycerin [Nitrostat] 0.3 mg Tablet, Sublingual 0.3 mg sublingual DIRECTED PRN (Reason: .chest pain) citalopram 10 mg Tablet 20 mg PO HS acetaminophen [Tylenol Extra Strength] 500 mg Tablet 1,000 mg PO TID PRN (Reason: Pain) isosorbide mononitrate 60 mg tablet extended release 24 hr 60 mg PO DAILY meclizine 25 mg Tablet 25 mg PO TID PRN (Reason: dizzyness) docusate sodium [Colace] 100 mg Capsule 100 mg PO BID PRN (Reason: Constipation) gabapentin 300 mg capsule 600 mg PO BID Rx Instructions: Patient states this dose. timolol maleate 0.5 % drops 1 drp OPL BID metformin 500 mg tablet extended release 24 hr 1,000 mg PO PM rosuvastatin 10 mg tablet 10 mg PO DAILY cholecalciferol (vitamin D3) [Vitamin D3] 50 mcg (2,000 unit) Tablet 50 mcg PO DAILY triamcinolone acetonide 0.1 % cream 1 applic TOPICAL BID propranolol 10 mg tablet 10 mg PO HS repaglinide 1 mg tablet 1 mg PO TID Rx Instructions: BEFORE MEALS bupropion HCl 200 mg tablet sustained-release 12 hr 200 mg PO DAILY Discharge Orders: Discharge Order (Routine); Ordered 12/19/24 Ordered By: Gurvinder Marroquin Admission Data Admit Date/Time: 12/18/24 22:50 Attending Provider: Gurvinder Marroquin Admit Provider: Bert Cee Primary Care Provider: Jefferson Suarez Other Providers: Bert Cee; Anthony Helton Hospital Stay Data Consultations 12/18/24 21:26 ED Decision to Admit Stat Diagnostic Imagining Performed 12/18/24 18:20 CT head/brain wo con Stat 12/18/24 18:21 CT cervical spine wo con Stat CT facial bones wo con Stat Discharge Instructions Given to Patient (Per Discharging Provider) You are seen in the hospital after a fall. He reports that you had walked around 4 blocks and then felt off balance but knew you were going to fall so tried to fall onto the grass however missed and ended up hitting the curb. You did not have lightheaded or dizziness that led to your fall, and you did not experience a syncopal episode. Your EKG on admission showed a paced rhythm. You had a minimal detectable troponin which was downtrending on repeat. An echocardiogram of your heart was performed. Your heart pumping (LVEF) was normal. You have mild to moderate aortic insufficiency. You did sustain a nasal bone fracture. Follow-up is being scheduled for you with ENT. No surgical intervention was recommended. You did sustain a facial laceration for which 4 simple sutures were placed with good approximation of skin in which continue to be well-approximated at time of discharge. You were able to ambulate independently, and noted you can usually do so independently although sometimes using a cane or rollator. You were ambulating at your normal level of function at time of discharge If you develop any new or worsening symptoms including fever, chills, sweats, chest pain, chest pressure, difficulty breathing, uncontrolled nausea/vomiting, rash, wheezing, passing out or nearly passing out, bleeding, black/bloody bowel movements, or other new or concerning symptoms please call your primary care physician, or call 911 for re-evaluation in the emergency department if you are very concerned. Total Time Total Time Spent Total Time Spent (In Minutes): Time spend day of discharge 35 minutes including direct patient care, documentation, review of labs and images, and coordination of care. Coding Level of Care Code 70428 INP/OBS DISCH >30 MIN Diagnoses Ground-level fall W18.30XA
[2024-12-19 13:15] VITALS: BP 152/74; PULSE 60
[2024-12-19] MEDS ORDERED: PROPRANOLOL HCL 10 MG TAB PO SCH (21:00)
[2024-12-19] MEDS ORDERED: CITALOPRAM 20 MG TAB PO SCH (21:00)
[2024-12-19] MEDS ORDERED: LATANOPROST 0.005% OP SOLN 2.5 ML BTL OPB SCH (21:00)
[2024-12-19] MEDS ORDERED: LANTUS PER UNIT CHARGE SQ SCH (21:00)
== END 2024-12-19 14:09 | disposition home or self-care (01) ==
LOC: ED 18:16 → 2N 18:16 → SUATTDRO 22:50 → 2N 23:55